=== PATIENT | male | born 1950 | race Caucasian/White ===

== ENCOUNTER 2020-10-26 10:08 | Outpatient (REF) | payer MEDICARE, SELFPAY ==
--- NOTE | ~2020-10-26 | CT_ITS ---
EXAMINATION: CT CHEST WITHOUT CONTRAST CLINICAL INFORMATION: Interstitial lung disease. COMPARISON: None TECHNIQUE: Multidetector volumetric CT imaging of the chest was done. Axial MIP volume rendering provided. Sagittal and coronal reformatted images were obtained. This CT examination was performed using dose optimization techniques as appropriate, variously including the following: *Automated exposure control *Adjustment of mA and/or kV according to patient size (this includes techniques or standardized protocols for targeted exams where dose is matched to indication/reason for exam; i.e. extremities or head) *Use of iterative reconstruction technique DLP: 270 mGy-cm FINDINGS: REFRIGERATION INSULATOR: Well-inflated lungs. LUNGS: There is diffuse centrilobular emphysema with diffuse subpleural reticular interstitial thickening and honeycombing in both upper lobes, lower lobes especially dependent segments. No pulmonary nodule, mass or consolidation seen. MEDIASTINUM: The thyroid lobes are symmetrical and normal. The central trachea and the bronchi are widely patent. Heart size is normal with coronary artery calcifications. No pericardial effusion seen. The aorta is normal caliber. There are reactive pretracheal and para-aortic abnormal lymph nodes. The para-aortic lymph node measures 1.5 x 1.0 cm on axial image 20/7, the pretracheal lymph node measures 1.4 x 1.0 cm. No pericardial effusion seen. PLEURA: There is no pleural effusion. No pleural mass or thickening. AXILLA: No abnormal lymph nodes seen in the axilla. The chest wall appears unremarkable. UPPER ABDOMEN: The liver is diffusely attenuated without enlargement or focal lesion. No intrahepatic ductal dilatation seen. There is a solitary small gallstone in a contracted gallbladder. Visualized pancreas, adrenal glands and spleen appear unremarkable. There is diffuse colonic diverticulosis in the visualized transverse colon. OSSEOUS STRUCTURES: Moderate ventral spondylosis throughout dorsal spine. No lytic or sclerotic process seen. CT/CT chest wo con IMPRESSION: Diffuse centrilobular emphysema with reticular interstitial thickening and honeycombing suggestive of chronic interstitial lung fibrosis involving both upper lobes and lower lobes. No definite pulmonary nodule or consolidation seen. There are reactive abnormal mediastinal lymph nodes. Diffuse hepatic steatosis without focal lesion. Solitary radiopaque gallstone in a contracted gallbladder.
== END 2020-10-26 10:09 | disposition home or self-care (01) ==
LOC: HO.CT 10:08
PROVIDERS: PCP Physician Assistant Medical; Visit Provider Internal Medicine Pulmonary Disease
DX: J84.9 Interstitial pulmonary disease, unspecified (principal)
CPT/HCPCS: 71250

== ENCOUNTER 2020-11-03 09:19 | Outpatient (REF) | payer MEDICARE, SELFPAY ==
--- NOTE | 2020-11-03 | PFT_ITS ---
INDICATION: Interstitial lung disease. SPIROMETRY: FEV1 to FVC of 83% with an FEV1 of 2.88 L, which is 96% predicted and FVC of 3.47 L which is 84% predicted. No significant response to bronchodilators noted. Maximum voluntary ventilation 95% predicted. LUNG VOLUMES: Total lung capacity 66% of predicted with an expiratory reserve volume of 80% predicted. DIFFUSION CAPACITY: DLCO 46% predicted. Flow volume loop: There appears to be some plateauing of the inspiratory flows, which could represent a dynamic extrathoracic airway obstruction. COMPARISON: None. INTERPRETATION: No obstructive ventilatory defect. No significant response to bronchodilators noted and normal maximum voluntary ventilation. The patient does have a mild restrictive ventilatory defect, which is consistent with a history of interstitial lung disease. In addition to that, there is a [id number] diffusion impairment secondary to the parenchymal lung disease. The patient also has some plateauing of the flows during the inspiratory component of the flow volume loop, which brings up the possibility of extrathoracic dynamic obstruction. Clinical correlation warranted. MD COLBY Pete/RAJNI / [id number]
== END 2020-11-03 09:20 | disposition home or self-care (01) ==
LOC: HO.RESP 09:19
PROVIDERS: Visit Provider Internal Medicine Pulmonary Disease
DX: J84.9 Interstitial pulmonary disease, unspecified (principal)
CPT/HCPCS: 94060; 94727; 94729

== ENCOUNTER → 2020-11-18 09:45 | Outpatient (BNVA) | payer MEDICARE, SELFPAY | PROVIDERS: Visit Provider Internal Medicine Pulmonary Disease | DX: M05.10 Rheumatoid lung disease with rheumatoid arthritis of unspecified site (principal); J84.10 Pulmonary fibrosis, unspecified | CPT/HCPCS: 99212 ==

== ENCOUNTER → 2021-11-14 08:47 | Outpatient (BNVA) | payer MEDICARE, SELFPAY | PROVIDERS: PCP Physician Assistant Medical; Visit Provider Internal Medicine Pulmonary Disease | DX: M05.10 Rheumatoid lung disease with rheumatoid arthritis of unspecified site (principal); J84.10 Pulmonary fibrosis, unspecified | CPT/HCPCS: 99212 ==

== ENCOUNTER 2021-12-15 15:39 | Outpatient (REF) | payer MEDICARE, SELFPAY ==
--- NOTE | 2021-12-15 17:03 | PFT_ITS ---
FLOWS: FEV1 93% of predicted at 2.76 L. FVC 82% of predicted at 3.32 L. FEV1 to FVC ratio of 0.83. No bronchodilator response. LUNG VOLUMES: Total lung capacity 66% of predicted at 4.41 L. Residual volume 49% of predicted at 1.18 L. Slow vital capacity 75% of predicted at 3.23 L. Expiratory reserve volume 66% of predicted at 0.76 L. Diffusion capacity is moderately decreased, diffusion capacity adjust to being mildly decreased after correction for alveolar ventilation. In comparison to pulmonary function test performed November 03, 2020, there have been no significant changes in patient's pulmonary function. IMPRESSION: Mild restrictive ventilatory defect with no bronchodilator response. Decreased diffusion capacity suggests emphysema. MD ARMANDO Maya/MODL / [id number]
== END 2021-12-15 15:40 | disposition home or self-care (01) ==
LOC: HO.RESP 15:39
PROVIDERS: Visit Provider Internal Medicine Pulmonary Disease
DX: J84.10 Pulmonary fibrosis, unspecified (principal)
CPT/HCPCS: 94060; 94727; 94729

== ENCOUNTER 2022-10-17 07:59 | Outpatient (REF) | payer MEDICARE, SELFPAY ==
--- NOTE | 2022-10-17 08:55 | PFT_ITS ---
INDICATION: Pulmonary fibrosis. SPIROMETRY: The FEV1 to FVC of 84% with an FEV1 of 2.42 L, which is 82% predicted and an FVC of 2.87 L, which is 71% predicted. No significant response to bronchodilators noted. Maximum voluntary ventilation 92% predicted. LUNG VOLUMES: Total lung capacity 52% predicted with an expiratory reserve volume of 39% predicted. COMPARISONS: PFTs from November 2021. INTERPRETATION: No obstructive ventilatory defects, no significant response to bronchodilators noted, and normal maximum voluntary ventilation. The patient does have a restrictive ventilatory defect consistent with moderate restrictive lung disease secondary to his underlying pulmonary fibrosis. The patient also has a moderate to severe diffusion impairment secondary to the above. When compared to 2021, there is a significant decrease in the FVC from decrease in the FEV1 and significant decrease in the total lung capacity and a trend decrease in the diffusion capacity. Clinical correlation warranted. MD COLBY Pete/MODL / [id number]
== END 2022-10-17 08:00 | disposition home or self-care (01) ==
LOC: HO.RESP 07:59
PROVIDERS: Visit Provider Internal Medicine Pulmonary Disease
DX: J84.10 Pulmonary fibrosis, unspecified (principal)
CPT/HCPCS: 94010; 94727; 94729

== ENCOUNTER → 2022-11-08 08:56 | Outpatient (BNVA) | payer MEDICARE, SELFPAY | PROVIDERS: Visit Provider Internal Medicine Pulmonary Disease | DX: J84.10 Pulmonary fibrosis, unspecified (principal); R06.09 Other forms of dyspnea; Z87.891 Personal history of nicotine dependence | CPT/HCPCS: 99212 ==

== ENCOUNTER 2023-01-22 09:57 | Outpatient (AMB) | payer MEDICARE, SELFPAY ==
--- NOTE | 2023-01-22 09:59 | A.OFFVIS_ITS ---
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 ? Patient continues to use albuterol MDI as needed, usually not more once every few days.? He complains of mild dyspnea on exertion. Patient continues to undergo cardiac workup. His PFT shows decreasing FVC. He denies recent acute exacerbations. [facility] Social History (Reviewed 01/22/23 @ 10:02 by Leatha Marin [facility]) Patient Tobacco Use Status: Never used Tobacco Review of Systems Const Denies daytime sleepiness, Denies excessive sweating, Denies fatigue, Denies fever(s), Denies lethargy, Denies malaise, Denies night sweats, Denies snoring and Denies weight loss Eyes Denies blurry vision and Denies itchy eyes ENT Denies nasal congestion, Denies post nasal drip, Denies sinus pain, Denies sinus pressure and Denies other ( Thrush) Card Denies chest pain, Denies pedal edema, Denies dyspnea, Reports dyspnea on exertion, Denies orthopnea and Denies paroxysmal nocturnal dyspnea Resp Denies cough, Denies hemoptysis, Denies excessive phlegm production, Denies dyspnea, Reports dyspnea on exertion, Denies snoring and Denies wheezing GI Denies abdominal pain and Denies heartburn Musc Denies myalgias, Denies arthralgias and Denies joint swelling Skin/Breast Denies rash Neuro Denies memory loss and Denies seizure-like activity Psych Denies abnormal sleep pattern, Denies anxiety and Denies memory loss Endo Denies excessive sweating, Denies fatigue and Denies heat intolerance Alfredo/Lymph Denies easy bruising Aller/Immun Denies itchy eyes, Denies seasonal rhinorrhea and Denies wheezing Physical Exam Vital Signs: Last Vital Signs Pulse 100 01/22/23 10:00 BP 118/62 01/22/23 10:00 Pulse Ox 94 01/22/23 10:00 Oxygen Delivery Method Room Air 01/22/23 10:00 BMI result Body Mass Index 29.3 Const General: no acute distress and alert Nutritional Appearance: not obese Orientation/consciousness: Other orientation findings ( oriented) HEENT Head: Yes atraumatic Eyes General: appearance normal, both eyes and all related structures Sclerae: sclerae normal EOM: EOMs intact bilaterally Neck Neck: Yes supple Lymphatic: no lymphadenopathy noted Resp Effort & Inspection: normal respiratory effort and no use of accessory muscles Auscultation: clear to auscultation bilaterally Cardio Rate: regular rate Rhythm: regular rhythm Heart sounds: no gallops, no murmurs and no rubs Skin General skin exam: other ( warm) Extrem General: No clubbing, No cyanosis and No edema Assessment & Plan Assessment & Plan (1) Dyspnea on exertion: Code(s): R06.09 - Other forms of dyspnea (2) Interstitial pulmonary fibrosis: Code(s): J84.10 - Pulmonary fibrosis, unspecified (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 Will request off approval. Continue albuterol MDI as needed. Coding Level of Care Code Est Pt Level 4 (88589) Diagnoses Dyspnea on exertion R06.09 Interstitial pulmonary fibrosis J84.10 Rheumatoid lung disease with rheumatoid arthritis M05.10
[2023-01-22 10:00] VITALS: BP 118/62; PULSE 100; O2SAT 94; BMI 29.3
== END 2023-01-22 10:15 | disposition home or self-care (01) ==
PROVIDERS: PCP Physician Assistant Medical; Visit Provider Internal Medicine Pulmonary Disease
DX: R06.09 Other forms of dyspnea (principal); J84.10 Pulmonary fibrosis, unspecified; M05.10 Rheumatoid lung disease with rheumatoid arthritis of unspecified site
CPT/HCPCS: 99214

== ENCOUNTER → 2023-01-22 09:57 | Outpatient (BNVA) | payer MEDICARE, SELFPAY | PROVIDERS: PCP Physician Assistant Medical; Visit Provider Internal Medicine Pulmonary Disease | DX: J84.10 Pulmonary fibrosis, unspecified (principal); R06.09 Other forms of dyspnea; M05.10 Rheumatoid lung disease with rheumatoid arthritis of unspecified site | CPT/HCPCS: 99212 ==

== ENCOUNTER 2023-08-27 08:46 | Outpatient (AMB) | payer MEDICARE, SELFPAY ==
[2023-08-27 08:51] VITALS: BP 117/62; PULSE 94; O2SAT 95; BMI 27.7
--- NOTE | 2023-08-27 08:51 | MHC.OFFVIS ---
Intake Vital Signs 08/27/23 08:51 Height 5 ft 8 in Weight 181 lb 14.102 oz BMI 27.7 BP 117/62 Blood Pressure Location Rt brachial Position Sitting Pulse 94 Pulse Source Doppler Pulse Oximetry (%) 95 Oxygen Delivery Method Room Air Intake Visit Reasons: pulmonary fibrosis Allergies No Known Allergies Allergy (Verified 08/27/23 08:57) HPI pulmonary fibrosis HPI Details 72-year-old gentleman, former 25 pack year smoker, quit 1999 followed for ILD/likely RA related IPF. ?He has been started on Ofev after the last office visit, however did have difficulty tolerating it secondary to diarrhea and abdominal pain requiring decrease in the dose. Today patient is complaining of worsening dyspnea on exertion. He is currently under no rheumatology care on any anti RA medications. [facility] Social History Patient Tobacco Use Status: Never used Tobacco Review of Systems Const Denies daytime sleepiness, Denies excessive sweating, Denies fatigue, Denies fever(s), Denies lethargy, Denies malaise, Denies night sweats, Denies snoring and Denies weight loss Eyes Denies blurry vision and Denies itchy eyes ENT Denies nasal congestion, Denies post nasal drip, Denies sinus pain, Denies sinus pressure and Denies other ( Thrush) Card Denies chest pain, Denies pedal edema, Denies dyspnea, Reports dyspnea on exertion, Denies orthopnea and Denies paroxysmal nocturnal dyspnea Resp Denies cough, Denies hemoptysis, Denies excessive phlegm production, Denies dyspnea, Reports dyspnea on exertion, Denies snoring and Denies wheezing GI Denies abdominal pain and Denies heartburn Musc Denies myalgias, Denies arthralgias and Denies joint swelling Skin/Breast Denies rash Neuro Denies memory loss and Denies seizure-like activity Psych Denies abnormal sleep pattern, Denies anxiety and Denies memory loss Endo Denies excessive sweating, Denies fatigue and Denies heat intolerance Alfredo/Lymph Denies easy bruising Aller/Immun Denies itchy eyes, Denies seasonal rhinorrhea and Denies wheezing Physical Exam Vital Signs: Last Vital Signs Pulse 94 08/27/23 08:51 BP 117/62 08/27/23 08:51 Pulse Ox 95 08/27/23 08:51 Oxygen Delivery Method Room Air 04/09/24 08:51 BMI result Body Mass Index 27.7 Const General: no acute distress and alert Nutritional Appearance: not obese Orientation/consciousness: Other orientation findings ( oriented) HEENT Head: Yes atraumatic Eyes General: appearance normal, both eyes and all related structures Sclerae: sclerae normal EOM: EOMs intact bilaterally Neck Neck: Yes supple Lymphatic: no lymphadenopathy noted Resp Effort & Inspection: normal respiratory effort and no use of accessory muscles Auscultation: clear to auscultation bilaterally Cardio Rate: regular rate Rhythm: regular rhythm Heart sounds: no gallops, no murmurs and no rubs Skin General skin exam: other ( warm) Extrem General: No clubbing, No cyanosis and No edema Assessment & Plan Assessment & Plan (1) Rheumatoid lung disease with rheumatoid arthritis: Code(s): M05.10 - Rheumatoid lung disease with rheumatoid arthritis of unspecified site Plan: Patient states that he has an evaluation with [facility] building construction superintendent pending. Patient has been offered rheumatology evaluation at [facility]. (2) Interstitial pulmonary fibrosis: Code(s): J84.10 - Pulmonary fibrosis, unspecified Plan: Underlying worsening pulmonary fibrosis. Continue Ofev. (3) Supplemental oxygen dependent: Code(s): Z99.81 - Dependence on supplemental oxygen Plan: 6 minute walk test/supplemental oxygen evaluation performed. Patient requires supplemental oxygen at 3 L continuous flow to maintain normal oximetry with exertion. Order placed with [employer]. Coding Level of Care Code Est Pt Level 4 (34490) Diagnoses Rheumatoid lung disease with rheumatoid arthritis M05.10 Interstitial pulmonary fibrosis J84.10 Supplemental oxygen dependent Z99.81
[2023-08-27 10:20] VITALS: PULSE 100; O2SAT 94
== END 2023-08-27 09:23 | disposition home or self-care (01) ==
PROVIDERS: PCP Physician Assistant Medical; Visit Provider Internal Medicine Pulmonary Disease
DX: M05.10 Rheumatoid lung disease with rheumatoid arthritis of unspecified site (principal); J84.10 Pulmonary fibrosis, unspecified; Z99.81 Dependence on supplemental oxygen
CPT/HCPCS: 94618; 99214

== ENCOUNTER → 2023-08-27 08:46 | Outpatient (BNVA) | payer MEDICARE, SELFPAY | PROVIDERS: PCP Physician Assistant Medical; Visit Provider Internal Medicine Pulmonary Disease | DX: M05.10 Rheumatoid lung disease with rheumatoid arthritis of unspecified site (principal); J84.10 Pulmonary fibrosis, unspecified; Z99.81 Dependence on supplemental oxygen | CPT/HCPCS: 94618; 99212 ==

== ENCOUNTER 2023-09-26 09:58 | Outpatient (AMB) | payer MEDICARE, SELFPAY ==
[2023-09-26 10:06] VITALS: BP 124/66; PULSE 69; O2SAT 94; BMI 28.0
--- NOTE | 2023-09-26 10:06 | MHC.OFFVIS ---
Vital Signs 09/26/23 10:06 Height 5 ft 8 in Weight 184 lb BMI 28.0 BP 124/66 Blood Pressure Location Rt brachial Position Sitting Pulse 69 Pulse Source Doppler Pulse Oximetry (%) 94 Oxygen Delivery Method Room Air Intake Visit Reasons: Pulmonary Fibrosis Allergies No Known Allergies Allergy (Verified 08/27/23 08:57) HPI HPI Pulmonary Fibrosis: Details: 73-year-old gentleman, former 25 pack year smoker, quit 1999 followed for ILD/likely RA related IPF, supplement oxygen dependent 3 L with exertion. ?He has been started on Ofev, however did have difficulty tolerating it secondary to diarrhea and abdominal pain requiring decrease in the dose. Patient started seen client service manager again and there is a question whether he actually does have underlying RA or not. [facility] Social History (Updated 09/26/23 @ 10:12 by Leatha Marin [facility]) Patient Tobacco Use Status: Former Tobacco user Years Smoked: quit 30+ years ago Review of Systems Const Denies daytime sleepiness, Denies excessive sweating, Denies fatigue, Denies fever(s), Denies lethargy, Denies malaise, Denies night sweats, Denies snoring and Denies weight loss Eyes Denies blurry vision and Denies itchy eyes ENT Denies nasal congestion, Denies post nasal drip, Denies sinus pain, Denies sinus pressure and Denies other ( Thrush) Card Denies chest pain, Denies pedal edema, Denies dyspnea, Denies orthopnea and Denies paroxysmal nocturnal dyspnea Resp Denies cough, Denies hemoptysis, Denies excessive phlegm production, Denies dyspnea, Denies snoring and Denies wheezing GI Denies abdominal pain and Denies heartburn Musc Denies myalgias, Denies arthralgias and Denies joint swelling Skin/Breast Denies rash Neuro Denies memory loss and Denies seizure-like activity Psych Denies abnormal sleep pattern, Denies anxiety and Denies memory loss Endo Denies excessive sweating, Denies fatigue and Denies heat intolerance Alfredo/Lymph Denies easy bruising Aller/Immun Denies itchy eyes, Denies seasonal rhinorrhea and Denies wheezing Physical Exam Vital Signs: Last Vital Signs Pulse 69 09/26/23 10:06 BP 124/66 09/26/23 10:06 Pulse Ox 94 09/26/23 10:06 Oxygen Delivery Method Room Air 09/26/23 10:06 BMI result Body Mass Index 28.0 Const General: no acute distress and alert Nutritional Appearance: not obese Orientation/consciousness: Other orientation findings ( oriented) HEENT Head: Yes atraumatic Eyes General: appearance normal, both eyes and all related structures Sclerae: sclerae normal EOM: EOMs intact bilaterally Neck Neck: Yes supple Lymphatic: no lymphadenopathy noted Resp Effort & Inspection: normal respiratory effort and no use of accessory muscles Auscultation: clear to auscultation bilaterally Cardio Rate: regular rate Rhythm: regular rhythm Heart sounds: no gallops, no murmurs and no rubs Skin General skin exam: other ( warm) Extrem General: No clubbing, No cyanosis and No edema Assessment & Plan Assessment & Plan (1) Interstitial pulmonary fibrosis: Code(s): J84.10 - Pulmonary fibrosis, unspecified Category: Medical Plan: If patient does have underlying RA, then RA related, otherwise IPF/UIP. Continue Ofev. (2) Supplemental oxygen dependent: Code(s): Z99.81 - Dependence on supplemental oxygen Category: Medical Plan: Continue supplemental oxygen to maintain O2 saturation above 90%. Coding Level of Care Code Est Pt Level 4 (23329) Diagnoses Interstitial pulmonary fibrosis J84.10 Supplemental oxygen dependent Z99.81
== END 2023-09-26 10:29 | disposition home or self-care (01) ==
PROVIDERS: PCP Physician Assistant Medical; Visit Provider Internal Medicine Pulmonary Disease
DX: J84.10 Pulmonary fibrosis, unspecified (principal); Z99.81 Dependence on supplemental oxygen
CPT/HCPCS: 99214

== ENCOUNTER → 2023-09-26 09:58 | Outpatient (BNVA) | payer MEDICARE, SELFPAY | PROVIDERS: PCP Physician Assistant Medical; Visit Provider Internal Medicine Pulmonary Disease | DX: J84.10 Pulmonary fibrosis, unspecified (principal); Z99.81 Dependence on supplemental oxygen | CPT/HCPCS: 99212 ==

== ENCOUNTER 2023-11-13 11:17 | Outpatient (AMB) | payer MEDICARE, SELFPAY ==
[2023-11-13 11:18] VITALS: BP 100/68; PULSE 100; O2SAT 95; BMI 26.0
--- NOTE | 2023-11-13 11:18 | MHC.OFFVIS ---
Vital Signs 11/13/23 11:18 Height 5 ft 8 in Weight 170 lb 13.732 oz BMI 26.0 BP 100/68 Blood Pressure Location Lt brachial Position Sitting Pulse 100 Pulse Source Doppler Pulse Oximetry (%) 95 Oxygen Delivery Method Nasal Cannula Oxygen Flow Rate 2 Intake Visit Reasons: pulmonary fibrosis Allergies No Known Allergies Allergy (Verified 08/27/23 08:57) HPI HPI pulmonary fibrosis: Details: 73-year-old gentleman, former 25 pack year smoker, quit 1999 followed for ILD UIP/IPF, supplement oxygen dependent 3 L with exertion. ?He has been started on Ofev, however did have difficulty tolerating it secondary to diarrhea and abdominal pain requiring decrease in the dose, however he has not received decreased dose. Patient seen sausage meat trimmer and RA has been ruled out. He does complain of significant symptomatic decline in his dyspnea over the last 6 months. Patient had recent CT chest at [facility] with report stating progression in ILD from prior CT scan in 2019. [facility] Social History (Updated 09/26/23 @ 10:12 by Leatha Marin [facility]) Patient Tobacco Use Status: Former Tobacco user Years Smoked: quit 30+ years ago Review of Systems Const Reports lethargy, Reports malaise and Reports weight loss Card Denies chest pain, Reports pedal edema, Denies dyspnea, Reports dyspnea on exertion, Denies orthopnea and Denies paroxysmal nocturnal dyspnea Resp Denies cough, Denies hemoptysis, Denies excessive phlegm production, Denies dyspnea, Reports dyspnea on exertion and Denies wheezing Alfredo/Lymph Denies easy bruising Aller/Immun Denies seasonal rhinorrhea and Denies wheezing Physical Exam Vital Signs: Last Vital Signs Pulse 100 11/13/23 11:18 BP 100/68 11/13/23 11:18 Pulse Ox 95 11/13/23 11:18 Oxygen Delivery Method Nasal Cannula 11/13/23 11:18 Oxygen Flow Rate 2 11/13/23 11:18 BMI result Body Mass Index 26.0 Const General: no acute distress and alert Nutritional Appearance: not obese Orientation/consciousness: Other orientation findings ( oriented) HEENT Head: Yes atraumatic Eyes General: appearance normal, both eyes and all related structures Sclerae: sclerae normal EOM: EOMs intact bilaterally Neck Neck: Yes supple Lymphatic: no lymphadenopathy noted Resp Effort & Inspection: normal respiratory effort and no use of accessory muscles Auscultation: crackles (Bilateral inspiratory) Cardio Rate: regular rate Rhythm: regular rhythm Heart sounds: no gallops, no murmurs and no rubs Skin General skin exam: other ( warm) Extrem General: No clubbing, No cyanosis and No edema Assessment & Plan Assessment & Plan (1) Supplemental oxygen dependent: Code(s): Z99.81 - Dependence on supplemental oxygen Category: Medical Plan: Continue supplemental oxygen to maintain O2 saturation above 88%. (2) Interstitial pulmonary fibrosis: Code(s): J84.10 - Pulmonary fibrosis, unspecified Category: Medical Plan: Underlying UIP/IPF, progressive over the last 6 months symptomatically. Patient has not started reduced dose Ofev, request for medication recent. Will start on prednisone 50 mg daily all the next months and assess symptoms in 1 months[address] Will obtain recent CT chest imaging from [facility]. Medications: New prednisone 50 mg PO DAILY 30 tabs 3RF Coding Level of Care Code Est Pt Level 4 (74917) Diagnoses Supplemental oxygen dependent Z99.81 Interstitial pulmonary fibrosis J84.10
== END 2023-11-13 11:52 | disposition home or self-care (01) ==
PROVIDERS: PCP Physician Assistant Medical; Visit Provider Internal Medicine Pulmonary Disease
DX: Z99.81 Dependence on supplemental oxygen (principal); J84.10 Pulmonary fibrosis, unspecified
CPT/HCPCS: 99214

== ENCOUNTER → 2023-11-13 11:17 | Outpatient (BNVA) | payer MEDICARE, SELFPAY | PROVIDERS: PCP Physician Assistant Medical; Visit Provider Internal Medicine Pulmonary Disease | DX: J84.10 Pulmonary fibrosis, unspecified (principal); Z99.81 Dependence on supplemental oxygen; Z87.891 Personal history of nicotine dependence | CPT/HCPCS: 99212 ==

== ENCOUNTER 2023-12-13 09:03 | Outpatient (AMB) | payer MEDICARE, SELFPAY ==
[2023-12-13 09:07] VITALS: BP 124/62; PULSE 71; O2SAT 95; BMI 27.3
--- NOTE | 2023-12-13 09:07 | MHC.OFFVIS ---
Vital Signs 12/13/23 09:07 Height 5 ft 8 in Weight 179 lb 10.828 oz BMI 27.3 BP 124/62 Blood Pressure Location Rt brachial Position Sitting Pulse 71 Pulse Source Doppler Pulse Oximetry (%) 95 Oxygen Delivery Method Nasal Cannula Oxygen Flow Rate 2 Intake Visit Reasons: Pulmonary Fibrosis Allergies No Known Allergies Allergy (Verified 12/13/23 09:13) HPI HPI Pulmonary Fibrosis: Details: 73-year-old gentleman, former 25 pack year smoker, quit 1999 followed for ILD UIP/IPF, supplement oxygen dependent 3 L with exertion. ?He has been started on Ofev, however did have difficulty tolerating it secondary to diarrhea and abdominal pain requiring decrease in the dose, however he is able to tolerate better with the decreased dose. RA has been ruled out as a cause for his underlying ILD by his equipment driver. He has been on prednisone 50 mg daily of the last months with improved symptom tolerance. [facility] Social History (Updated 09/26/23 @ 10:12 by Leatha Marin Coco) Patient Tobacco Use Status: Former Tobacco user Years Smoked: quit 30+ years ago Review of Systems Const Denies daytime sleepiness, Denies excessive sweating, Denies fatigue, Denies fever(s), Denies lethargy, Denies malaise, Denies night sweats, Denies snoring and Denies weight loss Eyes Denies blurry vision and Denies itchy eyes ENT Denies nasal congestion, Denies post nasal drip, Denies sinus pain, Denies sinus pressure and Denies other ( Thrush) Card Denies chest pain, Denies pedal edema, Denies dyspnea, Reports dyspnea on exertion, Denies orthopnea and Denies paroxysmal nocturnal dyspnea Resp Denies cough, Denies hemoptysis, Denies excessive phlegm production, Denies dyspnea, Reports dyspnea on exertion, Denies snoring and Denies wheezing GI Denies abdominal pain and Denies heartburn Musc Denies myalgias, Denies arthralgias and Denies joint swelling Skin/Breast Denies rash Neuro Denies memory loss and Denies seizure-like activity Psych Denies abnormal sleep pattern, Denies anxiety and Denies memory loss Endo Denies excessive sweating, Denies fatigue and Denies heat intolerance Alfredo/Lymph Denies easy bruising Aller/Immun Denies itchy eyes, Denies seasonal rhinorrhea and Denies wheezing Physical Exam Vital Signs: Last Vital Signs Pulse 71 12/13/23 09:07 BP 124/62 12/13/23 09:07 Pulse Ox 95 12/13/23 09:07 Oxygen Delivery Method Nasal Cannula 12/13/23 09:07 Oxygen Flow Rate 2 12/13/23 09:07 BMI result Body Mass Index 27.3 Const General: no acute distress and alert Nutritional Appearance: not obese Orientation/consciousness: Other orientation findings ( oriented) HEENT Head: Yes atraumatic Eyes General: appearance normal, both eyes and all related structures Sclerae: sclerae normal EOM: EOMs intact bilaterally Neck Neck: Yes supple Lymphatic: no lymphadenopathy noted Resp Effort & Inspection: normal respiratory effort and no use of accessory muscles Auscultation: clear to auscultation bilaterally Cardio Rate: regular rate Rhythm: regular rhythm Heart sounds: no gallops, no murmurs and no rubs Skin General skin exam: other ( warm) Extrem General: No clubbing, No cyanosis and No edema Assessment & Plan Assessment & Plan (1) Interstitial pulmonary fibrosis: Code(s): J84.10 - Pulmonary fibrosis, unspecified Category: Medical Plan: IPF UIP, some symptomatic improvement on prednisone [address] chest prior to prednisone therapy from 09/2023 from [place] reviewed. Will repeat CT chest to assess changes with prednisone therapy. Will continue prednisone for to movements. Will refer to Pulmonary Rehab. (2) Supplemental oxygen dependent: Code(s): Z99.81 - Dependence on supplemental oxygen Category: Medical Plan: Continue supplemental O2 to maintain O2 sat >88%. Orders: Orders Pulmonary Rehab Today J84.10 - Pulmonary fibrosis, unspecified CT chest wo IV con Today J84.10 - Pulmonary fibrosis, unspecified Coding Level of Care Code Est Pt Level 4 (75723) Diagnoses Interstitial pulmonary fibrosis J84.10 Supplemental oxygen dependent Z99.81
== END 2023-12-13 09:26 | disposition home or self-care (01) ==
PROVIDERS: PCP Physician Assistant Medical; Visit Provider Internal Medicine Pulmonary Disease
DX: J84.10 Pulmonary fibrosis, unspecified (principal); Z99.81 Dependence on supplemental oxygen
CPT/HCPCS: 99214

== ENCOUNTER → 2023-12-13 09:03 | Outpatient (BNVA) | payer MEDICARE, SELFPAY | PROVIDERS: PCP Physician Assistant Medical; Visit Provider Internal Medicine Pulmonary Disease | DX: J84.10 Pulmonary fibrosis, unspecified (principal); Z99.81 Dependence on supplemental oxygen; Z87.891 Personal history of nicotine dependence | CPT/HCPCS: 99212 ==

== ENCOUNTER 2024-01-06 07:15 | Outpatient (REF) | payer MEDICARE, SELFPAY ==
--- NOTE | ~2024-01-06 | CT_ITS ---
EXAMINATION: CT CHEST WITHOUT CONTRAST CLINICAL INFORMATION: Pulmonary fibrosis, unspecified. COMPARISON: 10/26/2020. TECHNIQUE: Multidetector volumetric CT imaging of the chest was done. Axial MIP volume rendering provided. Sagittal and coronal reformatted images were obtained. This CT examination was performed using dose optimization techniques as appropriate, variously including the following: *Automated exposure control *Adjustment of mA and/or kV according to patient size (this includes techniques or standardized protocols for targeted exams where dose is matched to indication/reason for exam; i.e. extremities or head) *Use of iterative reconstruction technique DLP: 199 mGy-cm Please note, due to [facility] contractual, systems, and staffing issues, an [facility] radiologist was not available for review and dictation of this case until 02/04/2024. FINDINGS: LUNGS: -Once again, there are findings of diffuse pulmonary fibrosis with subpleural honeycombing throughout both lungs, without notable gradient to the upper or lower lung zones. Compared with the prior CT, there has been progression of fibrosis to a moderate degree throughout both lungs. There is superimposed paraseptal emphysema. -Lung volumes are low, consistent with restrictive lung disease. There are apical subpleural blebs, right greater than left. -The degree of underlying lung disease limits sensitivity for detection of small nodules. Grossly there is no suspicious pulmonary nodule identified. -There is diffuse cylindrical and traction bronchiectasis. There is no bronchial wall thickening noted. There is mild peribronchovascular interstitial thickening in the perihilar regions, consistent with pulmonary fibrosis. -No endobronchial filling defects. Central airways are patent. -No consolidations identified. -Mild superimposed groundglass attenuation in the right middle lobe, and subpleural regions of both lungs associated with honeycombing suggests potential ongoing lung injury. -There is no pleural mass or pleural effusion. -Mild elevation of the right hemidiaphragm is present. MEDIASTINUM: -Thyroid is small but normal. -Aorta is normal in caliber and course with moderate atheromatous calcification. 2 vessel branching pattern. -Main pulmonary artery is prominent, suggesting some degree of pulmonary hypertension. It measures 4.2 cm in diameter, enlarged. -There are small subcentimeter mediastinal lymph nodes, consistent with reactive etiology. -Heart size is normal. No pericardial effusion. -Esophagus is grossly normal on this noncontrast exam. CORONARY ARTERY CALCIFICATION: Moderate to extensive 4 vessel coronary calcification. AXILLA/CHEST WALL: There is mild bilateral male gynecomastia. No masses or abnormal lymph nodes. UPPER ABDOMEN: -There are calcified gallstone within the proximal gallbladder. No evidence of gallbladder inflammation. -There is mild pancreatic atrophy. -No suspicious liver abnormality on this noncontrast exam. -There are scattered diverticuli in the imaged colon. -Normal adrenal glands. OSSEOUS STRUCTURES: -No suspicious lytic or blastic bone lesion. -There is moderate degenerative spondylosis throughout the spine with ventral somewhat bulky flowing disc osteophytes which are fused, highly suggestive of DISH. -There is significant arthritis in the first rib costomanubrial joint, as well as the sternoclavicular joints. CT/CT chest wo IV con IMPRESSION: 1. Significant progression of diffuse subpleural pulmonary fibrosis with honeycombing superimposed upon paraseptal emphysema when compared with the prior exam of 10/26/2020. Findings suggestive of UIP or pulmonary fibrosis based upon underlying collagen vascular disease. Areas of superimposed subpleural groundglass attenuation adjacent and overlying the honeycombing in the both lungs suggests ongoing lung injury. 2. There is diffuse mild cylindrical and traction bronchiectasis. No bronchial wall thickening or filling defect. 3. No suspicious nodules although degree of underlying lung disease could obscure subtle nodules. 4. No consolidations or pleural effusions. 5. Enlarged main pulmonary artery suggestive of pulmonary hypertension. 6. No pathologic lymphadenopathy. 7. Skeletal findings compatible with DISH. 8. Additional ancillary findings as discussed. Electronically signed by: jP Schofield MD 02/04/2024 10:07 AM EDT
== END 2024-01-06 07:16 | disposition home or self-care (01) ==
LOC: HO.CT 07:15
PROVIDERS: PCP Physician Assistant Medical; Visit Provider Internal Medicine Pulmonary Disease
DX: J84.10 Pulmonary fibrosis, unspecified (principal)
CPT/HCPCS: 71250

== ENCOUNTER → 2024-01-06 07:16 | Outpatient (BNV) | payer MEDICARE, SELFPAY | PROVIDERS: PCP Physician Assistant Medical; Visit Provider Radiology Diagnostic Radiology | DX: J84.10 Pulmonary fibrosis, unspecified (principal) | CPT/HCPCS: 71250 ==

== ENCOUNTER 2024-01-30 10:48 | Outpatient (AMB) | payer MEDICARE, SELFPAY ==
[2024-01-30 10:51] VITALS: BP 96/62; PULSE 122; O2SAT 91
--- NOTE | 2024-01-30 10:51 | A.OFFVIS_ITS ---
Vital Signs 01/30/24 10:51 Height 5 ft 8 in BP 96/62 Blood Pressure Location Rt brachial Position Sitting Pulse 122 H Pulse Source Doppler Pulse Oximetry (%) 91 L Oxygen Delivery Method Nasal Cannula Oxygen Flow Rate 4 Intake Visit Reasons: shortness of breath with exertion Allergies No Known Allergies Allergy (Verified 12/13/23 09:13) HPI HPI shortness of breath with exertion: Details: 73-year-old gentleman, former 25 pack year smoker, quit 1999 followed for ILD UIP/IPF, supplement oxygen dependent 3 L with exertion. After the last office visit patient continues on prednisone 50 mg daily with significant symptomatic improvement and was able to participate with pulmonary rehab with further improvement in his exercise tolerance. However approximately 2-3 weeks prior patient has developed COVID-19 infection with significant worsening of his underlying pulmonary symptoms. He has tested negative within last week and today he states that his dyspnea has not significantly improved since developing COVID-19. He also had to stop his Ofev over the last few weeks secondary to significant diarrhea. [facility] Social History (Updated 09/26/23 @ 10:12 by Leatha Marin Coco) Patient Tobacco Use Status: Former Tobacco user Years Smoked: quit 30+ years ago Review of Systems Const Reports fatigue and Reports malaise Card Reports dyspnea and Reports dyspnea on exertion Resp Reports cough, Denies excessive phlegm production, Reports dyspnea, Reports dyspnea on exertion and Denies wheezing Endo Reports fatigue Aller/Immun Denies wheezing Physical Exam Vital Signs: Last Vital Signs Pulse 122 H 01/30/24 10:51 BP 96/62 01/30/24 10:51 Pulse Ox 91 L 01/30/24 10:51 Oxygen Delivery Method Nasal Cannula 01/30/24 10:51 Oxygen Flow Rate 4 01/30/24 10:51 Const General: no acute distress and alert Nutritional Appearance: not obese Orientation/consciousness: Other orientation findings ( oriented) HEENT Head: Yes atraumatic Eyes General: appearance normal, both eyes and all related structures Sclerae: sclerae normal EOM: EOMs intact bilaterally Neck Neck: Yes supple Lymphatic: no lymphadenopathy noted Resp Effort & Inspection: normal respiratory effort and no use of accessory muscles Auscultation: clear to auscultation bilaterally Cardio Rate: regular rate Rhythm: regular rhythm Heart sounds: no gallops, no murmurs and no rubs Skin General skin exam: other ( warm) Rashes: rashes noted (Left díaz) Extrem General: No clubbing, No cyanosis and No edema Assessment & Plan Assessment & Plan (1) Interstitial pulmonary fibrosis: Code(s): J84.10 - Pulmonary fibrosis, unspecified Category: Medical Plan: Had significant symptomatic improvement on prednisone 50 mg daily and with pulmonary rehab, however over the last 2-3 weeks had significant worsening with COVID-19 and remains with significant dyspnea after COVID test told negative. At this time will taper off prednisone and hold off have secondary to significant diarrhea. Will re-evaluate in 4 weeks. (2) Supplemental oxygen dependent: Code(s): Z99.81 - Dependence on supplemental oxygen Category: Medical Plan: Continue supplemental oxygen to maintain O2 saturation above 88%. Patient is interested in possible POC evaluation for flying. Medications: New prednisone Take 4 tabs daily by 5 days, then go down by 1 tab every 5 days 10 mg PO DIRECTED 50 tabs 0RF Discontinued prednisone Discontinued Reason: Doctor's Order 50 mg PO DAILY 30 tabs 3RF Coding Level of Care Code Est Pt Level 4 (40984) Complex EM visit Add On G2211 Diagnoses Interstitial pulmonary fibrosis J84.10 Supplemental oxygen dependent Z99.81
== END 2024-01-30 11:31 | disposition home or self-care (01) ==
PROVIDERS: PCP Physician Assistant Medical; Visit Provider Internal Medicine Pulmonary Disease
DX: J84.10 Pulmonary fibrosis, unspecified (principal); Z99.81 Dependence on supplemental oxygen
CPT/HCPCS: 99214; G2211

== ENCOUNTER → 2024-01-30 10:48 | Outpatient (BNVA) | payer MEDICARE, SELFPAY | PROVIDERS: PCP Physician Assistant Medical; Visit Provider Internal Medicine Pulmonary Disease | DX: J84.10 Pulmonary fibrosis, unspecified (principal); J84.112 Idiopathic pulmonary fibrosis; Z87.891 Personal history of nicotine dependence; Z99.81 Dependence on supplemental oxygen | CPT/HCPCS: 99212 ==

== ENCOUNTER 2024-02-04 09:24 | Inpatient (IN) | payer MEDICARE, SELFPAY ==
[2024-02-04] VITALS (44 sets, daily range): BP systolic 60–142; BP diastolic 30–93; PULSE 52–180; RESP 17–56; TEMP 34–37; O2SAT 81–105; BMI 26.7
--- NOTE | 2024-02-04 | ECG_ITS ---
Test Reason : FALL Blood Pressure : / mmHG Vent. Rate : 153 BPM Atrial Rate : 153 BPM P-R Int : 128 ms QRS Dur : 076 ms QT Int : 250 ms P-R-T Axes : 040 -03 020 degrees QTc Int : 399 ms Sinus tachycardia Minimal voltage criteria for LVH, may be normal variant ( R in aVL ) Nonspecific ST abnormality Abnormal ECG No previous ECGs available Referred By: Chuck Hazel Electronically Signed By:WILLIAN CARRANZA
--- NOTE | ~2024-02-04 | CT_ITS ---
EXAMINATION: CTA CHEST PE STUDY, CT ABDOMEN AND PELVIS CLINICAL INFORMATION: rule out PE. Lower GI bleed COMPARISON: No pertinent prior studies are available for comparison. TECHNIQUE: Prior to contrast administration, noncontrast localization images were obtained. After the administration of 100 mL of Omnipaque nonionic IV contrast, contiguous thin slice helical images were obtained through the thorax. Following this the examination was continued through the abdomen and then pelvis. Reformatted MIP images in the coronal and sagittal planes as well as thin slice reformatted images of coronal and sagittal planes were obtained at the acquisition workstation. This CT examination was performed using dose optimization techniques as appropriate, variously including the following: *Automated exposure control *Adjustment of mA and/or kV according to patient size (this includes techniques or standardized protocols for targeted exams where dose is matched to indication/reason for exam; i.e. extremities or head) *Use of iterative reconstruction technique DLP: 2531 mGy-cm. FINDINGS: CHEST: The bolus timing on this study was acceptable for visualization of the pulmonary arterial tree. There are no intraluminal pulmonary arterial filling defects present to suggest pulmonary embolism. Subpleural emphysematous changes seen bilaterally with fibrotic markings suggesting sequela of interstitial lung disease/fibrosis. No dense consolidation. Central airways grossly unremarkable. Patient is intubated. No abnormal pulmonary nodules or masses are appreciated. Shotty hilar and mediastinal lymph nodes but no significant hilar or mediastinal adenopathy. There is no evidence of pleural effusion or pneumothorax. The heart is normal in size. No evidence of ventricular septal bowing or right heart strain. The mediastinum and great vessels are normal. There is no pericardial effusion or pericardial thickening. ABDOMEN/PELVIS: Liver, Gallbladder and Biliary Tree: The liver is normal in size, shape, and attenuation. No focal hepatic lesion or biliary ductal dilatation is present. Gallstones within the dependent aspect of the partially contracted but otherwise unremarkable gallbladder. Pancreas: Unremarkable. Spleen: Unremarkable. Adrenal Glands: Unremarkable. Kidneys and Ureters: The kidneys are normal in size, shape, and attenuation. No hydronephrosis, hydroureter, or calculi seen. No perinephric stranding. Bladder: Decompressed by Jamison catheter Gastrointestinal Tract: Scattered colonic diverticulosis but no colonic wall thickening suggest diverticulitis. On the arterial phase portion of the study there was dense contrast seen in the region of the distal descending colon which was not present on the precontrast images. There is puddling of contrast in this area on the delayed images consistent with GI bleed in this location. Abdominal Wall: No significant hernia is appreciated. Lymphovascular Structures: Vascular calcification within the aortoiliac system. Right femoral arterial catheter. Pelvic Viscera: Unremarkable. Osseous Structures: Multilevel degenerative changes in the spine. CT/CT abdomen pelvis w IV con IMPRESSION: 1. No evidence for pulmonary emboli. Chronic appearing changes in the lungs suggesting a component of underlying interstitial lung disease/fibrosis. 2. Contrast is seen within the distal descending colon on the arterial phase portion of the study which was not present on the precontrast images. There is subsequent puddling of contrast in this area on the delayed images consistent with significant GI bleed in this location. 3. VTE: Negative. This critical result was discussed with the patient's nurse at 6:15 PM. Patient's physician was reportedly already with the patient in interventional radiology by this time. Electronically signed by: Gabriel Santiago MD 02/04/2024 06:46 PM EDT
--- NOTE | ~2024-02-04 | IR_ITS ---
History: 73-year-old male with severe gastrointestinal bleeding. Prior CTA suggested a source in the descending colon. Procedures performed: 1. Ultrasound-guided catheterization of the left common femoral artery 2. Catheterization of the inferior mesenteric artery with selective arteriography. 3. Catheterization of a third order branch of the inferior mesenteric artery with selective arteriography followed by embolization and postembolization angiography. Physician: Merlyn Figueroa MD FSIR Anesthesia: IV moderate sedation was administered under my direct supervision for a total of 30 minutes with continuous physiologic monitoring. See nurse's notes for dosages. In addition, 8 mL of 1% lidocaine was administered for local anesthesia. Specimen: None Drains: None Estimated blood loss: Minimal Consultations: None Procedure in detail: Informed and written consent was obtained and placed in the chart. Ultrasound the left groin showed a widely patent left common femoral artery. 1% lidocaine was injected subcutaneously under ultrasound guidance and extended to the artery. A small incision was made in the skin with a #11 blade. Through the incision and under ultrasound guidance with permanent recordings and direct visualization of needle entry into the artery, the left common femoral artery was catheterized in a retrograde fashion with a micropuncture set. Subsequently, using the Seldinger technique, a 5 Occitan sheath was placed. A Sos 2 catheter was used to select the inferior mesenteric artery where selective arteriography was performed. This did not show active extravasation, but the branch that was felt to be a candidate branch based on the prior imaging was seen as well as contrast still within the colon presumably from prior hemorrhage. Using a Progreat microcatheter, the third order branch that we suspected had been bleeding was catheterized where selective arteriography was performed, again failing to demonstrate active bleeding. Nonetheless, based on our high clinical suspicion, this branch was embolized with coils ranging between 2 and 5 mm in size. Follow-up radiography showed an excellent result with no active extravasation, coil migration, nor other complication. We elected to terminate the case at this point. The Sos 2 catheter and microcatheter were removed but the sheath was left in place as an arterial line. It was secured to the skin with 2-0 silk suture. Summary: Successful embolization of a third order branch of the inferior mesenteric artery supplying the descending colon. The patient will be carefully monitored for additional bleeding as described above. Electronically signed by: Rj Figueroa MD 02/12/2024 02:38 PM EDT
--- NOTE | ~2024-02-04 | IR_ITS ---
Angiogram and embolization. HISTORY/INDICATION: GI bleed. Active extravasation seen on CTA. PROCEDURE/FINDINGS: Informed consent had been obtained prior to the procedure from patient's healthcare proxy. Patient was brought from the ICU intubated and sedated. Patient was placed supine on the fluoroscopy table. A left common femoral 5 [place] sheath is in place from prior angiogram which had been left in place in order to serve as an arterial line. This was sterilely prepped and draped as well as the surrounding skin. A 5 [place]an Sos Omni 2 catheter was inserted and formed in the thoracic aorta and was then used to select the inferior mesenteric artery. Angiogram demonstrates arterial irregularity with small focal extra in the distal descending colon in concordance with findings on previous cross-sectional imaging. Coils from previous embolization procedure are in place leading to this segment of bowel. However, there is a more inferior sigmoidal branch of the inferior mesenteric artery which has branch vessel leading to this segment of bowel. This branch was selected with a 2.4 [place]an microcatheter. After confirming position, embolization was performed with 3 3 mm coils. Post embolization angiogram demonstrates successful occlusion of the vessel. There is no further evidence of arterial irregularity or active extravasation. There is maintained perfusion to the bowel. Satisfied with our result we elected to terminate the procedure. The catheter was removed. The sheath was left in place to again be used as an arterial line in the ICU. Patient was transferred back to the ICU in stable condition. IR/IR embolization hemorrhage IMPRESSION: Angiogram demonstrates ongoing bleeding at distal descending/proximal sigmoid colon. Successful coil embolization as detailed above. Electronically signed by: Gabriel Herrera MD 02/06/2024 01:23 PM EDT
--- NOTE | ~2024-02-04 | CT_ITS ---
EXAMINATION: CT ANGIOGRAM ABDOMEN AND PELVIS CLINICAL INFORMATION: Rectal bleed COMPARISON: CT 02/04/2024 TECHNIQUE: Multiple axial images were obtained through the abdomen and pelvis following the administration of 80 mL of Omnipaque 350 intravenous contrast. Images were reviewed on a dedicated 3-D workstation. This CT examination was performed using dose optimization techniques as appropriate, variously including the following: *Automated exposure control *Adjustment of mA and/or kV according to patient size (this includes techniques or standardized protocols for targeted exams where dose is matched to indication/reason for exam; i.e. extremities or head) *Use of iterative reconstruction technique DLP: 1834 mGy-cm FINDINGS: The aorta is normal in course and caliber and there is moderate eccentric calcification disease without stenosis. Bolus timing is suboptimal which mildly limits evaluation as there is quite a bit of venous contamination of arterial phase. The iliac bifurcation is unremarkable. There is calcific disease of the common, internal, and external iliac arteries without hemodynamically significant stenosis identified. Proximal femoral vessels are patent. There is a right femoral venous catheter in place which terminates within the right common iliac vein. There is a left femoral arterial catheter in place that terminates within the external iliac artery. The celiac, superior mesenteric, and inferior mesenteric arteries are patent and there may be mild narrowing at the origin of the inferior mesenteric artery. Within the sigmoid colon on the postcontrast phase there is linear hyperenhancement within the colon compatible with active contrast extravasation with increasing enhancement on venous phase. There are embolization coils within a branch of the inferior mesenteric artery. Single renal artery to each kidney. Renal arteries are patent. The iliofemoral veins have an overall unremarkable appearance. There is no evidence of femoral or iliac thrombosis. Inferior vena cava is normal in caliber and well-opacified. Renal veins are patent. The portal-mesenteric venous system is widely patent. There are fibrotic changes at the lung bases and regions of groundglass attenuation which are similar to the prior study. No pleural fluid collections are seen. The liver is normal in size and overall attenuation. No liver lesions are seen. No intra or extrahepatic duct dilation is seen. Gallbladder is physiologically distended. There is a calcified gallstone present and there are no pericholecystic inflammatory changes to suggest cholecystitis. There is no intra or extrahepatic duct dilation. There are a few punctate calcifications within the region of the pancreatic head. This could relate to history of prior pancreatitis. The pancreas is otherwise unremarkable and there is no pancreatic duct dilation. Spleen is unremarkable. Adrenal glands are unremarkable. The kidneys are normal in size since enhance symmetrically. There are no calculi, hydronephrosis, or hydroureter. A Jamison catheter is in place and the bladder partially decompressed. There is mild bladder wall trabeculation. The distal esophagus has an enteric tube within it which terminates within the proximal stomach. The distal esophagus and stomach are otherwise unremarkable. The large and small bowel are normal in course and caliber and there are no bowel inflammatory changes seen. There is colonic diverticulosis without inflammation suggest diverticulitis and there is a normal appendix. On arterial phase there is linear hyperenhancement within the lumen of the sigmoid colon suggesting contrast extravasation, as noted above. There is no free intraperitoneal fluid. There is no abdominopelvic or retroperitoneal lymphadenopathy seen. Prostate and seminal vesicles are unremarkable. There is no significant hernia of the body wall. There are multilevel degenerative changes of the imaged thoracolumbar spine and there are no acute or aggressive bony abnormalities seen. CT/CT angio abdomen pelvis IMPRESSION: Active contrast extravasation within a segment of the sigmoid colon supplied by branch of the inferior mesenteric artery suggesting ongoing hemorrhage. Fleischner guidelines were followed. Emergent findings were communicated with Dr. Mtz by Dr. Santa by telephone at 1735 hours. Electronically signed by: Chandrakant Santa MD 02/05/2024 05:42 PM EDT
--- NOTE | ~2024-02-04 | XR_ITS ---
EXAMINATION: XR CHEST CLINICAL INFORMATION: Chest pain. COMPARISON: Correlation made with CT chest 01/06/2024. TECHNIQUE: AP view of the chest was obtained. FINDINGS: Numerous leads overlie the thorax. Low lung volumes noted with mild elevation right hemidiaphragm. Diffuse interstitial changes throughout both lungs compatible with known pulmonary fibrosis. Allowing for low lung volumes and extensive underlying interstitial disease, no definite superimposed active disease is identified on this limited exam. No pleural effusions. Heart size is normal. There is vascular crowding in the hilar regions. There is calcification of the aorta. Prominent pulmonary arteries noted bilaterally. Degenerative changes in the sternoclavicular joints, first rib costomanubrial joints, bilateral AC joints and shoulder joints.. Degenerative changes throughout the imaged spine, moderate in severity. Refer to the prior CT. 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 Grossly no soft tissue abnormalities. XR/XR chest 1V IMPRESSION: 1. Low lung volumes with underlying pulmonary fibrosis. Allowing for technical limitations and degree of underlying lung disease, no definite active disease on this limited exam. A subtle pneumonia could easily be obscured. 2. 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 Refer to prior CT dated 01/06/2024. Electronically signed by: Pj Schofield MD 02/04/2024 10:16 AM EDT
--- NOTE | ~2024-02-04 | XR_ITS ---
EXAMINATION: XR CHEST CLINICAL INFORMATION: Status post intubation and OG tube placement COMPARISON: Chest radiograph from 02/04/2024, CT chest from 01/06/2024 TECHNIQUE: Frontal view of the chest was obtained. FINDINGS: Endotracheal tube approximately 4.0 cm from the level of the magen. No enteric tube definitively visualized. Bilateral low lung volumes. Bilateral diffuse interstitial prominence compatible with history of known pulmonary fibrosis though underlying infectious/inflammatory etiology not excluded. Left basilar atelectasis versus scarring. No pneumothorax. Trachea is midline. Cardiomediastinal silhouette is stable. No large pleural effusion. Degenerative changes of the thoracolumbar spine. Soft tissues are unremarkable. XR/XR chest 1V IMPRESSION: 1. Endotracheal tube approximately 4.0 cm from the level of the magen. 2. No enteric tube definitively visualized. 3. Bilateral low lung volumes. 4. Bilateral diffuse interstitial prominence compatible with history of known pulmonary fibrosis though underlying infectious/inflammatory etiology not excluded. 5. Left basilar atelectasis versus scarring. Electronically signed by: Angie Brown MD 02/04/2024 11:52 AM EDT
--- NOTE | ~2024-02-04 | XR_ITS ---
EXAMINATION: XR CHEST CLINICAL INFORMATION: OG tube placement. COMPARISON: Most recent chest radiograph done earlier the same day. TECHNIQUE: Frontal view of the chest was obtained. FINDINGS: Interval placement of an enterogastric tube with the tip in the region of the gastric body. Redemonstration of an endotracheal tube with the tip approximately 5 cm proximal to the magen. Small bilateral pleural effusions with diffuse bilateral patchy airspace opacities, similar when compared to the prior examination. No pneumothorax. Stable cardiomediastinal silhouette. XR/XR chest 1V IMPRESSION: 1. Enterogastric tube with the tip in the region of the gastric body. 2. Endotracheal tube with the tip approximately 5 cm proximal to the magen. 3. Small bilateral pleural effusions with diffuse bilateral patchy airspace opacities, similar when compared to the prior examination. Electronically signed by: Himanshu Bello MD 02/04/2024 01:03 PM EDT
[2024-02-04] MEDS: fentaNYL citrate/NS 1,000 MCG/100 ML PLAST..BAG 2.5 MCG IVCONT (09:35)
[2024-02-04 09:36] LABS: Glucose, Whole Blood 139 mg/dL (60-115)
[2024-02-04] MEDS: 0.9 % Sodium Chloride 1,000 ML 999 ML IVCONT ×2 (09:45→11:04)
[2024-02-04 09:46] LABS: ABG HCO3 12 mmol/L (22-26); ABG pCO2 27 mmHg (32-45); ABG pH 7.26 (7.35-7.45); ABG pO2 85 mmHg (83-108)
[2024-02-04] MEDS: Ketamine HCl/NS 50 MG/5 ML SYRINGE 80 MG IVPUSH (09:50)
[2024-02-04] MEDS: Succinylcholine Chloride 200 MG/10 ML VIAL 100 MG IVPUSH ×2 (09:51→19:42)
--- NOTE | 2024-02-04 09:52 | PC.NURSE ---
7.5 ET tube 25@lip +color change
[2024-02-04] MEDS: fentaNYL citrate/PF 100 MCG/2 ML VIAL IVPUSH (10:07)
[2024-02-04] MEDS: Midazolam HCl/PF 2 MG/2 ML VIAL IVPUSH ×2 (10:08→17:45)
[2024-02-04] MEDS: Norepinephrine Bitartrate/D5W 8 MG/250 ML PLAST..BAG 7.48 MG IVCONT (10:15)
--- NOTE | 2024-02-04 10:31 | ED.SOB ---
HPI - SOB/Dyspnea General Chief Complaint: Dyspnea Stated Complaint: FALL,AMS,LOW BP 80/53,HR 153 PER EMS Time Seen by Provider: 02/04/24 09:32 Source: patient, family and EMS History of Present Illness HPI Narrative: This is a 73 years old patient with history of interstitial lung disease on home oxygen, presented to the emergency department via ambulance in acute respiratory distress tachypneic SI as a 50 tachycardic 150. Patient has baseline as poor motility, he was going to the bathroom and according to his lower him self to the floor. MD elicited complaint: shortness of breath Pertinent past history: other (Interstitial lung this) Onset (ago): hour(s) (5) Timing: constant Severity: severe Exacerbating factors: nothing Relieving factors: oxygen Associated symptoms: denies other symptoms Related Data Home oxygen amount: 4 liters Home Medications ?Medication ?Instructions ?Recorded ?Confirmed allopurinol 100 mg tablet 200 mg PO DAILY 11/18/20 amlodipine 10 mg tablet 10 mg PO DAILY 11/18/20 atorvastatin 40 mg tablet 40 mg PO DAILY 11/18/20 benazepril 10 1 tab PO DAILY 11/18/20 mg-hydrochlorothiazide 12.5 mg tablet doxycycline monohydrate 100 mg 100 mg PO 02/04/24 capsule Previous Rx's ?Medication ?Instructions ?Recorded nintedanib 100 mg capsule (Ofev) 100 mg PO Q12H 30 days #60 caps 06/21/23 albuterol sulfate 90 mcg/actuation 2 puff inhalation Q4-6H PRN 07/17/23 aerosol inhaler shortness of breath or wheezing 30 days #1 ea prednisone 10 mg tablet 10 mg PO DIRECTED #50 tabs 01/30/24 Allergies Allergy/AdvReac Type Severity Reaction Status Date / Time No Known Allergies Allergy Verified 02/04/24 09:41 Review of Systems Review of Systems: Yes Unobtainable due to mental condition [facility] Social History Social History (Updated 09/26/23 @ 10:12 by MONICO Seay) Patient Tobacco Use Status: Former Tobacco user Years Smoked: quit 30+ years ago Advance Directives: Yes Advance Directives on File: No Physical Exam Vital Signs: Vital Signs: Last Vital Signs Pulse 145 H 02/04/24 10:00 Resp 50 H 02/04/24 09:38 BP 109/79 02/04/24 10:00 Pulse Ox 99 02/04/24 10:00 O2 Del Method Room Air 02/04/24 10:00 FiO2 100 02/04/24 10:01 BMI result Body Mass Index 26.7 Severe respiratory distress Const: General: alert and in distress Nutritional Appearance: average body habitus HEENT: Other: Atraumatic Throat: Yes posterior oropharynx normal Neck: Other: Supple neck Resp: Effort & Inspection: tachypneic and tripod positioning Auscultation: rhonchi Cardio: Jugular venous distension: no JVD Rhythm: regular rhythm GI: Inspection: Yes normal to inspection Palpation (GI): Soft to palpation Skin: General skin exam: no rashes or lesions noted Course Reevaluation(s) Reevaluation #1: Patient remain in respiratory distress we attempted BiPAP for about 15 minutes without improvement decision for intubation, patient was intubated with RSI ketamine sux, a central line was placed in the right femoral vein because of poor access Time: 10:35 Reevaluation #2: Spoke with the and the 2 daughters spoke with the ICU attending Medical Decision Making Medical Decision Making [facility] Narrative: Patient presented in respiratory distress will do chest x-ray labs ABG and reassess Differential Diagnosis Differential Diagnoses: The differential diagnosis associated with the presentation includes Pneumonia/pneumothorax/CHF Admission/Observation Consideration of admission/observation: Escalation of care including admission/observation considered Lab Data [facility] Lab Attestation statement: I reviewed the patient's lab results. Labs: Lab Results 02/04/24 02/04/24 Range/Units 09:28 09:36 O2 Saturation 93.0 % ABG pH at Pt Temp 7.26 L (7.35-7.45) ABG pCO2 at Pt Temp 27 L (32-45) mmHg ABG pO2 at Pt Temp 85 (83-108) mmHg ABG HCO3 12 L (22-26) mmol/L ABG Base Excess (Actual) -13.0 mmol/L POC Glucose 139 H (60-115) mg/dL Independent Interpretation I performed an independent interpretation of an: EKG (Sinus tachycardia rate 150 no ischemic change) Independent Historian Clinical information obtained from an independent historian. History obtained from or confirmed by: Spouse daughters Chronic Conditions Patient?s care impacted by: Other (Interstitial lung disease) Procedures Central Line Placement Right Femoral: Time Out Performed: Yes Patient Placed on Monitor/Pulse Ox: Yes MD Prep: gloves Central Line Prep: Povidone-Iodine 1% Ultrasound Used for Placement: Yes Central Line Lumen Inserted: triple Post Procedure: sutured in place Patient Tolerated Procedure: well Complications: none Intubation Intubation Type:: Endotracheal Tube Insertion Intubation Date:: 02/04/24 Intubation Time:: 10:36 Time out performed: Yes sedative: Ketamine Mg Given: 80 paralytic: Succinylcholine Mg Given: 100 Laryngoscope: fiber optic video scope ET Tube Size: 7.5 ET Tube Uncuffed: No Tube Placement Confirmation: visualized tube passing through cords and equal breath sounds bilaterally Patient Tolerated Procedure: well Intubation Complications: none Critical Care Time Critical Care Time Critical Care Time: Yes Total Critical Care Time: 90 Attestation: Speaking with the EMS, speaking with the family taking care of the patient, speaking with the ICU attending Discharge Plan Discharge Clinical Impression: Respiratory failure Qualifiers: Chronicity: acute Patient Disposition: Admitted As Inpatient Print Language: Kenyan
--- NOTE | 2024-02-04 10:41 | P.HPCC_ITS ---
History of Present Illness Date of Service: 02/04/24 Chief Complaint: Fall 73-year-old gentleman who is a previous smoker quit in 1999 with past medical history of interstitial lung disease UIP/IPF on supplemental home oxygen 3 liters/minute, on oral steroids was brought into the ED after a fall at home. Apparently patient was walking to the restroom with support with his when he fell down so EMS was called. When he was brought into the ED he was hypoxic to low 80s and tachypneic to 50s he was placed on BiPAP support with no improvement in his symptoms so was intubated and placed on ventilator support. He is also found to be very hypotensive needing maximum Levophed support so MICU was consulted for admission Review of Systems Review of Systems: Unable to obtain as patient is intubated and on ventilator support [facility] Social History Social History (Updated 09/26/23 @ 10:12 by Leatha Marin Coco) Patient Tobacco Use Status: Former Tobacco user Years Smoked: quit 30+ years ago Advance Directives: Yes Advance Directives on File: No Meds Allergies Allergy/AdvReac Type Severity Reaction Status Date / Time No Known Allergies Allergy Verified 02/04/24 09:41 Active Medications: Current Medications Piperacillin Sod/Tazobactam (Sod 4.5 gm/ Sodium Chloride) 100 mls @ 200 mls/hr IV ONCE ONE Stop: 02/04/24 10:58 Sodium Chloride (Ns) 1,000 mls @ 999 mls/hr IVCONT .Q1H1M ELEN Stop: 02/04/24 11:30 Vancomycin HCl (Vancomycin/Ns) 2,000 mg in 500 mls @ 250 mls/hr IV ONCE ONE Stop: 02/04/24 12:44 Albumin Human (Kedbumin 25 %) 100 mls @ 133.333 mls/hr IV Q1H [facility] Stop: 02/04/24 12:29 Home Medications ?Medication ?Instructions ?Recorded ?Confirmed ?Last Taken ?Type allopurinol 100 mg tablet 200 mg PO DAILY 11/18/20 Unknown History amlodipine 10 mg tablet 10 mg PO DAILY 11/18/20 Unknown History atorvastatin 40 mg tablet 40 mg PO DAILY 11/18/20 Unknown History benazepril 10 1 tab PO DAILY 11/18/20 Unknown History mg-hydrochlorothiazide 12.5 mg tablet doxycycline monohydrate 100 mg 100 mg PO 02/04/24 Unknown History capsule Physical Exam Vital Signs: Vital Signs: Last Vital Signs Pulse 145 H 02/04/24 10:00 Resp 50 H 02/04/24 09:38 BP 109/79 02/04/24 10:00 Pulse Ox 99 02/04/24 10:00 O2 Del Method Room Air 02/04/24 10:00 FiO2 100 02/04/24 10:01 BMI result Body Mass Index 26.7 General: acute distress, ill appearing and tired appearing Nutritional Appearance: well nourished and normal weight Eyes: appearance normal, both eyes and all related structures; Alignment and Position: alignment normal and position normal Neck: No lymphadenopathy, no thyromegaly Resp: bilateral air entry poor, crackles heard Cardio: Regular rate, regular rhythm; Heart sounds: S1 normal heart sound present and S2 normal heart sound present GI: soft, nontender, no guarding, no hepatosplenomegaly : bladder normal to inspection, bladder normal to palpation, no renal angle tenderness Skin: no rashes or lesions noted and elasticity normal Neuro: Sedated, no focal deficits s Results Labs Labs: Laboratory Results - last 24 hr 02/04/24 02/04/24 09:28 09:36 O2 Saturation 93.0 ABG pH at Pt Temp 7.26 L ABG pCO2 at Pt Temp 27 L ABG pO2 at Pt Temp 85 ABG HCO3 12 L ABG Base Excess (Actual) -13.0 POC Glucose 139 H Imaging Radiologist's Impressions: Impressions Chest X-Ray 02/04/24 09:32 IMPRESSION: 1. Low lung volumes with underlying pulmonary fibrosis. Allowing for technical limitations and degree of underlying lung disease, no definite active disease on this limited exam. A subtle pneumonia could easily be obscured. 2. 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 Refer to prior CT dated 01/06/2024. 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: Status: Acute Plan Neuro: Acute encephalopathy possibly due to metabolic encephalopathy On fentanyl for analgesia, Versed for sedation as the patient is very hypotensive Close neurological status monitoring in the ICU every hour Cardiac: Undifferentiated shock: On Levophed support, titrate Levophed to keep map above 65 mm Hg If needed we will add phenylephrine as the 2nd pressors Respiratory: Acute on chronic hypoxemic respiratory failure due to progression of interstitial lung disease Intubated and placed on ventilator support On PRVC mode FiO2[100%], PEEP 5, TV 400, RR 20, we will wean the FiO2 as tolerated during the day Peak pressures and plateau pressures are under the curve Ventilator management bundle with head end elevation, aspiration precaution, chlorhexidine mouthwash, daily awakening trials, daily spontaneous breathing trials GI: We will start on tube feeds Renal: We will closely monitor I's and O's Avoid nephrotoxic medications Heme: Chronic anemia, closely monitor H&H, transfuse for hemoglobin less than 7 grams/deciliter Endocrine: Blood sugars under control Sliding scale insulin as needed Infectious disease: Pancultures sent We will start on empiric vanc and cefepime Albumin ordered as per sepsis protocol We will also get MRSA nares Musculoskeletal: Decubitus ulcer prevention protocol Lines: Right femoral central line Prophylaxis: Lovenox, pantoprazole Critical care spent time spent is about 60 minutes on evaluation and admission of the patient to the critical care unit, formulating critical care per management, ventilator management, sedation management, titrating ventilator settings, vasopressor management, close hemodynamic monitoring
[2024-02-04 10:46] LABS: Hematocrit 33.6 % (42.0-52.0); Hemoglobin 11.9 g/dl (14.0-18.0); Mean Corpuscular HGB Conc 35.4 g/dl (31.0-36.0); Mean Corpuscular Hemoglobin 34.5 pg (27.0-33.0); Mean Corpuscular Volume 97.4 fL (80.0-98.0); Mean Platelet Volume 9.7 fL (9.4-12.4); NRBC Pct Auto 0.3 /100WBC (0.0-0.2); Platelet Count 305 X10*3/uL (160-400); Red Blood Count 3.45 X10*6/uL (4.60-5.80); Red Cell Distribution Width 15.8 % (11.0-16.0); White Blood Count 25.7 X10*3/uL (4.8-10.8)
--- NOTE | 2024-02-04 11:00 | PC.NURSE ---
late charting due to patient care, patient arrives to ED from home via EMS after sustaining an unwitnessed fall at home, upon arriving to the house, EMS found siobhannet to be tachypneic with a respiratory rate in the 40s, tachycardic in the 150s and diaphoretic, initially patient was hypotensive with SBP in the 80s, patient was placed on NRB district captain. upon arriving, patient was diaphoretic and tachycardic in the 150s, pressure upon arrival 90/52 and patient was tachypneic with a respiratory rate in the 50s. patient was initially alert but unable to respond to questions, placed on BIPAP by respirtory states to this Rn that he does not remember falling, and that he has been experiencing this shortness of breath for the last week or so, hx of interstitial lung disease, htn. plan to intubate patient r/t work of breathing.
[2024-02-04 11:04] LABS: ABG Refer to POC result
[2024-02-04 11:07] LABS: B Type Natriuretic Peptide 75 pg/mL (<100); Troponin-I High Sensitivity 20.9 ng/L (<3.5-35.0)
[2024-02-04 11:10] LABS: Alanine Aminotransferase 26 U/L (0-40); Albumin Level 3.1 g/dL (3.5-5.0); Alkaline Phosphatase 86 U/L (39-117); Anion Gap 22 (12-20); Aspartate Amino Transferase 35 U/L (5-37); Atypical Lymph Absolute Manual 0.5 x10*3/uL; Atypical Lymphs Percent Manual 2 % (0-6); Band Neutrophils Percent 17 % (3-5); Blood Urea Nitrogen 42 mg/dL (9-16); Calcium 8.9 mg/dL (8.4-10.2); Carbon Dioxide 20 mmol/L (22-29); Chloride 93 mmol/L (96-108); Creatinine Clr Calc Pharmacy 38.8; Estimated Glomerular Filt Rate 41; Glucose Random 212 mg/dL (60-115); Lymphocytes Absolute Manual 0.8 X10*3/uL (1.2-4.9); Lymphocytes Percent Manual 3 % (20-40); Macrocytosis 1+ (5-14) /OIF; Metamyelocytes Absolute 0.5 X10*3/uL; Metamyelocytes Percent 2 %; Monocytes Absolute Manual 0.3 X10*3/uL (0.1-1.2); Monocytes Percent Manual 1 % (2-11); Neutrophils Absolute Manual 23.6 X10*3/uL (2.0-8.3); Neutrophils Percent Manual 75 % (45-73); Phosphorus 6.8 mg/dL (2.7-4.5); Potassium 4.1 mmol/L (3.3-5.1); RBC Morphology NOTED; Sodium 131 mmol/L (135-145); Total Protein 7.1 g/dL (6.5-8.0)
--- NOTE | 2024-02-04 11:14 | PHA.MEDREC ---
Addendum entered by Roya Ro RPh 02/04/24 11:24: reviewed by [facility]. Original Note: Pharmacy Consult ? Medication Reconciliation Pharmacy has completed the medication reconciliation. Spoke to at bedside. new all of patients medications. states that the Md put a hold on Nintedanib 100 mg , last dose was over 2 weeks ago and she wasn't sure if the DR will continue. Pednisone 10 mg is a taper dose starting at 40 daily for 5 days then taper by 1 tablet ever 5 days, Patient is on day 6 of taper 30 mg daily for 5 days.
[2024-02-04 11:15] LABS: Acanthocytes 2+ (3-5) /OIF; Polychromasia 1+ (0-2) /OIF
[2024-02-04 11:16] LABS: Platelet Estimate NORMAL (NORMAL); Platelet Morphology Comment NORMAL; Toxic Vacuolation PRESENT
[2024-02-04 11:17] LABS: Appearance Urine Clear; Color Urine Dark Yellow; Glucose Urine UA Negative (Negative); Leukocyte Esterase Urine Trace (Negative); Nitrite Urine Negative (Negative); PH 5.5 (5.0-9.0); Specific Gravity - Urine 1.025 (1.005-1.025); UMIC TRIGGER UACC YES; Urine Blood Negative (Negative); Urine Ketones Negative (Negative); Urine Protein 30 (1+) mg/dL (Neg-Trace)
[2024-02-04 11:21] LABS: Pappenheimer Bodies PRESENT
[2024-02-04 11:22] LABS: Bacteria Urine None Seen (None Seen); Hyaline Casts Urine 0-2 /LPF (0-2); RBC Urine 0-2 /HPF (0-2); Squamous Epithelial Cell Urine 0-2 /HPF (0-2); WBC Urine 0-5 /HPF (0-5)
--- NOTE | 2024-02-04 11:45 | PC.NURSE ---
orders not placed by MD, verbal orders only on patient, patient with minimal IV access, provider to place central line, provider noted to not cover central line with sterile dressing, this RN dawned sterile gloves and used betadine to clense area, dressing placed, blood work obtained via central line and sterile procedure and sent to lab. delay in medication administration r/t lack of blood work results, physical orders, or adequate IV access. patient continues to be hypotensive despite levophed drip, propofol held due to hypotension, fentanyl, and versed drip hanging per verbal orders. IV fluids hanging peripherally per verbal order. ICU requesting patient go to CT scan before transfer for CTA, made aware patient is not currently stable enough for CT scan and was bucking the vent, there is not adequate access for CTA as pressors and sedatives are running through all lines. propfol to be started once patient blood pressure is in adequate stable range.
[2024-02-04 11:57] LABS: Influenza A PCR NEGATIVE (Negative); Influenza B PCR NEGATIVE (Negative); Resp Syncy Virus RNA Qual PCR NEGATIVE (Negative); SARS COV2 PCR INHOUSE POSITIVE (Negative)
[2024-02-04] MEDS: propofoL 1,000 MG/100 ML VIAL 19.15 MG IVCONT (12:03)
--- NOTE | 2024-02-04 12:03 | PC.NURSE ---
propofol drip initiated on this date started at 40mcgg/kg/min per verbal from
[2024-02-04 12:43] LABS: Reflex Lactate? Lactic Acid Added
[2024-02-04] MEDS: Enoxaparin Sodium 40 MG/0.4 ML SYRINGE SUBCUT (12:43)
[2024-02-04] MEDS: Albumin Human 25 % 100 ML 133.33 ML IV ×4 (12:43→22:27)
[2024-02-04 12:52] LABS: MRSA Nasal PCR NEGATIVE (Negative); SA Nasal PCR POSITIVE (Negative)
[2024-02-04] MEDS: vancomycin/NS 2,000 MG/500 ML PLAST..BAG 250 MG IV (13:26)
[2024-02-04 13:32] LABS: Adenovirus PCR Not Detected (Not Detect.); Bordetella parapertussis PCR Not Detected (Not Detect.); Bordetella pertussis PCR Not Detected (Not Detect.); Chlamydia pneumoniae PCR Not Detected (Not Detect.); Coronavirus 229E PCR Not Detected (Not Detect.); Coronavirus HKU1 PCR Not Detected (Not Detect.); Coronavirus NL63 PCR Not Detected (Not Detect.); Coronavirus OC43 PCR Not Detected (Not Detect.); Human metapneumovirus PCR Not Detected (Not Detect.); Influenza A PCR Not Detected (Not Detect.); Influenza B PCR Not Detected (Not Detect.); Mycoplasma pneumoniae PCR Not Detected (Not Detect.); Parainfluenza 1 PCR Not Detected (Not Detect.); Parainfluenza 2 PCR Not Detected (Not Detect.); Parainfluenza 3 PCR Not Detected (Not Detect.); Parainfluenza 4 PCR Not Detected (Not Detect.); RSV PCR Not Detected (Not Detect.); Rhino/Enterovirus PCR Not Detected (Not Detect.)
[2024-02-04 13:38] LABS: ~Lactic Acid-LAB USE ONLY 3.7 mmol/L (0.5-2.0)
[2024-02-04 13:44] LABS: SARS-CoV-2 PCR Detected (Not Detect.)
[2024-02-04] MEDS: Midazolam HCl/NS 50 MG/50 ML PLAST..BAG IVCONT (13:53)
[2024-02-04] MEDS: propofoL 1,000 MG/100 ML VIAL 16.76 MG IVCONT ×2 (13:54→13:56)
[2024-02-04] MEDS: methylPREDNISolone Sod Succ 125 MG/2 ML VIAL 60 MG IVPUSH ×2 (13:55→20:35)
[2024-02-04] MEDS: Piperacillin Sodium/Tazobactam 4.5 GM in 0.9 % Sodium Chloride 100 ML IV ×2 (13:55→20:34)
[2024-02-04 14:58] LABS: Reflex Lactate? 2 Y
[2024-02-04] MEDS: 0.9 % Sodium Chloride 1,000 ML 999 ML IV (15:15)
[2024-02-04] MEDS: Albumin Human 25 % 100 ML 200 ML IV (15:15)
[2024-02-04 15:40] LABS: Mean Corpuscular HGB Conc 35.7 g/dl (31.0-36.0); Mean Corpuscular Hemoglobin 34.1 pg (27.0-33.0); Mean Corpuscular Volume 95.6 fL (80.0-98.0); Mean Platelet Volume 9.6 fL (9.4-12.4); NRBC Pct Auto 0.4 /100WBC (0.0-0.2); Platelet Count 242 X10*3/uL (160-400); Red Blood Count 2.05 X10*6/uL (4.60-5.80); Red Cell Distribution Width 15.6 % (11.0-16.0); White Blood Count 18.4 X10*3/uL (4.8-10.8)
[2024-02-04 15:49] LABS: D Dimer High Sensitivity 3187 NG/ML
[2024-02-04 15:54] LABS: ~Lactic Acid-LAB USE ONLY 1.8 mmol/L (0.5-2.0)
[2024-02-04 16:01] LABS: Anion Gap 13 (12-20); Blood Urea Nitrogen 33 mg/dL (9-16); Calcium 7.6 mg/dL (8.4-10.2); Carbon Dioxide 23 mmol/L (22-29); Chloride 101 mmol/L (96-108); Creatinine Clr Calc Pharmacy 55.8; Estimated Glomerular Filt Rate > 60; Glucose Random 154 mg/dL (60-115); Sodium 133 mmol/L (135-145)
[2024-02-04 16:09] LABS: Hematocrit 19.6 % (42.0-52.0)
[2024-02-04] MEDS: Rocuronium Bromide 50 MG/5 ML VIAL IVPUSH (18:06)
[2024-02-04] MEDS: fentaNYL citrate/NS 1,000 MCG/100 ML PLAST..BAG 5 MCG IVCONT (19:30)
[2024-02-04] MEDS: Protamine Sulfate 50 MG/5 ML VIAL 40 MG IV (19:34)
[2024-02-04] MEDS: Norepinephrine Bitartrate/D5W 8 MG/250 ML PLAST..BAG 29.93 MG IV (19:42)
--- NOTE | 2024-02-04 19:46 | PC.NURSE ---
p: alteration in gastrointestinal i: per care plan e: at approximately 1500 pt was noted to have a large, loose, bloody BM with clots. MD made aware. albumin and nacl bolus given per order. pt continued to have large, bloody bowel movements. 3 units RBCs given total. patient was taken to CT scan and eventually taken to IR for embolization.
[2024-02-04 19:48] LABS: Venous Blood Gas Refer to POC result
[2024-02-04 19:49] LABS: VBG Base Excess -2.2 mmol/L; VBG HCO3 22 mmol/L (22-26); VBG pCO2 36 mmHg; VBG pH 7.38 (7.32-7.43); VBG pO2 177 mmHg
[2024-02-04] MEDS: dilTIAZem HCL 50 MG/10 ML VIAL 10 MG IVPUSH (19:49)
[2024-02-04 20:02] LABS: INTERNATIONAL NORM RATIO 1.4 (0.9-1.1); Prothrombin Time 16.6 SEC (11.1-13.3)
[2024-02-04 20:05] LABS: Alanine Aminotransferase 15 U/L (0-40); Albumin Level 2.8 g/dL (3.5-5.0); Alkaline Phosphatase 48 U/L (39-117); Anion Gap 10 (12-20); Aspartate Amino Transferase 24 U/L (5-37); Bilirubin Total 2.2 mg/dL (0.0-1.0); Blood Urea Nitrogen 32 mg/dL (9-16); Calcium 6.9 mg/dL (8.4-10.2); Carbon Dioxide 23 mmol/L (22-29); Chloride 105 mmol/L (96-108); Creatinine Clr Calc Pharmacy 66.3; Estimated Glomerular Filt Rate > 60; Glucose Random 242 mg/dL (60-115); Magnesium 1.8 mg/dL (1.6-2.6); Phosphorus 4.2 mg/dL (2.7-4.5); Potassium 4.3 mmol/L (3.3-5.1); Sodium 134 mmol/L (135-145); Total Protein 4.5 g/dL (6.5-8.0)
[2024-02-04 20:06] LABS: Hematocrit 25.7 % (42.0-52.0); Hemoglobin 9.4 g/dl (14.0-18.0); Mean Corpuscular HGB Conc 36.6 g/dl (31.0-36.0); Mean Corpuscular Hemoglobin 32.5 pg (27.0-33.0); Mean Corpuscular Volume 88.9 fL (80.0-98.0); Mean Platelet Volume 9.9 fL (9.4-12.4); NRBC Pct Auto 0.3 /100WBC (0.0-0.2); Platelet Count 170 X10*3/uL (160-400); Red Blood Count 2.89 X10*6/uL (4.60-5.80); Red Cell Distribution Width 14.7 % (11.0-16.0); White Blood Count 12.8 X10*3/uL (4.8-10.8)
[2024-02-04] MEDS: Calcium Gluconate/NaCl,Iso-Osm 2 GM/100 ML PLAST..BAG IV (20:18)
[2024-02-04 20:36] LABS: SLIDE REVIEW MANUAL DIFF
[2024-02-04 20:37] LABS: Acanthocytes 1+ (0-2) /OIF; Burr Cells 2+ (3-5) /OIF; Lymphocytes Absolute Manual 0.9 X10*3/uL (1.2-4.9); Lymphocytes Percent Manual 7 % (20-40); Monocytes Absolute Manual 0.3 X10*3/uL (0.1-1.2); Monocytes Percent Manual 2 % (2-11); Neutrophils Percent Manual 91 % (45-73); Platelet Estimate NORMAL (NORMAL); Platelet Morphology Comment NORMAL; RBC Morphology NOTED
[2024-02-04] MEDS: Linezolid/D5W 600 MG/300 ML PIGGYBACK 300 MG IV (20:38)
[2024-02-04 20:42] LABS: Band Neutrophils Percent 0 % (3-5); Neutrophils Absolute Manual 11.6 X10*3/uL (2.0-8.3)
[2024-02-04] MEDS: 0.9 % Sodium Chloride Flush 3 ML SYRINGE IVFLUSH (23:29)
[2024-02-04] MEDS: fentaNYL citrate/NS 1,000 MCG/100 ML PLAST..BAG 7.5 MCG IVCONT (23:39)
[2024-02-05] VITALS (56 sets, daily range): BP systolic 86–152; BP diastolic 42–73; PULSE 45–63; RESP 19–22; TEMP 31.6–37.1; O2SAT 92–100; BMI 29.0
[2024-02-05 00:14] LABS: Hemoglobin 6.8 g/dl (14.0-18.0)
[2024-02-05 00:15] LABS: Hematocrit 18.5 % (42.0-52.0)
--- NOTE | 2024-02-05 02:06 | HO.SKINPHOTO ---
Addendum entered by Juan Antonio Aggarwal RN 02/05/24 04:29: Both arm skin tears are located on the right arm, not the left. Original Note: Location: Right great toe Present on admission Location: Left forearm Category: Skin tear Present on admission Location: Left medial elbow Category: Skin tear Present on admission
--- NOTE | 2024-02-05 02:51 | PC.NURSE ---
Addendum entered by Juan Antonio Aggarwal RN 02/05/24 06:27: At approx 0615: MAP goal 60-65 per NAOMI Betts, levophed titrated per JUL. PA updated re: continual bleeding with clots from rectum. New order for TXA 1000 mg IVBP x1, administered as ordered. Original Note: Approx 193: Patient returned from IR s/p embolization. Upon initial assessment, patient intubated and sedated with fentanyl gtt, versed gtt, and propofol gtt, RASS -4 (see JUL). Levophed running at 0.2mcg/kg/min on arrival, titrated per JUL. SR on tele, HR 60s-70s. A-line to left groin in place and running with KVO from IR. Switched to pressure tubing and waveform appropriate on monitor. Protamine sulfate 40mg IVP ordered by NAOMI Betts and administered per JUL. Approx 1950: patient went into SVT up to 180s, with arterial BP low of 48/36. Cardizem 10mg IVP ordered and administered per JUL. Patient had several runs of nonsustained monomorphic Vtach, eventually converted to SB on tele, HR 50s-60s. STAT labs drawn. Calcium gluconate 2g IV administered, see JUL. 2 bags albumin administered per JUL. Propofol gtt paused per NAOMI Betts due to hemodynamic instability. ETT #7.5, 22 cm @ lip. Respiratory advanced ETT to original 24cm @ lip without incident. On ACVC settings, 20/400/5.0/30%, somewhat asynchronous with the vent with breath stacking. Scant in-line blood tinged secretions. OGT in place and clamped. Temp sensing rai in place, draining clear yellow urine. Tmin 95.4, she hugger applied. Patient skin largely noemi with diffuse bruising and abrasions (see skin note), multiple skin tears to left arm. Xeroform applied and wrapped with kerlix. Approx 2100: Multiple family members to bedside and updated by this RN, explaining patient status/plan of care. Educated regarding airborne precautions and visitation limitations. Approx 2345: Patient turned for bed bath, BM with large amount of dark red blood and clots. NAOMI Betts notified, repeat H&H collected. Results 6.8 and 18.5, NAOMI Betts notified and 2 units RBCs ordered (see TAR), both infused without s/s of transfusion reaction. Currently sedated on fentanyl gtt and versed gtt, see MAR. SB on tele, HR 50s, SBP> 100 MAP >60 per a-line. Synchronous with the vent, same vent settings. OGT clamped, urine output 70-100mL/hr clear yellow. No acute skin changes. Unable to reposition Q2HR due to hemodynamic instability with repositioning, turning bed utilized. Bed locked in lowest possible position, bed alarm on, airborne precautions in place.
[2024-02-05] MEDS: Piperacillin Sodium/Tazobactam 4.5 GM in 0.9 % Sodium Chloride 100 ML IV ×3 (04:00→20:12)
[2024-02-05] MEDS: methylPREDNISolone Sod Succ 125 MG/2 ML VIAL 60 MG IVPUSH ×3 (04:00→20:12)
[2024-02-05] MEDS: Midazolam HCl/NS 50 MG/50 ML PLAST..BAG IVCONT (04:44)
[2024-02-05 05:47] LABS: MANUAL DIFF FLAG NO
[2024-02-05 05:48] LABS: Basophils Percent Auto 0.1 % (0-2); Hematocrit 24.4 % (42.0-52.0); Hemoglobin 8.7 g/dl (14.0-18.0); Imm Gran Pct Auto 3.3 % (0.0-0.4); Mean Corpuscular HGB Conc 35.7 g/dl (31.0-36.0); Mean Corpuscular Hemoglobin 31.8 pg (27.0-33.0); Mean Corpuscular Volume 89.1 fL (80.0-98.0); Mean Platelet Volume 10.2 fL (9.4-12.4); Monocytes Absolute Auto 0.2 X10*3/uL (0.1-1.2); Monocytes Percent Auto 2.2 % (2-11); NRBC Pct Auto 0.8 /100WBC (0.0-0.2); Neutrophils Absolute Auto 7.6 x10*3/uL (2.0-8.3); Neutrophils Percent Auto 83.4 % (45-73); Red Blood Count 2.74 X10*6/uL (4.60-5.80); Red Cell Distribution Width 14.6 % (11.0-16.0); White Blood Count 9.1 X10*3/uL (4.8-10.8)
[2024-02-05 06:04] LABS: Alanine Aminotransferase 11 U/L (0-40); Albumin Level 3.1 g/dL (3.5-5.0); Alkaline Phosphatase 27 U/L (39-117); Anion Gap 10 (12-20); Aspartate Amino Transferase 16 U/L (5-37); Blood Urea Nitrogen 27 mg/dL (9-16); Calcium 7.5 mg/dL (8.4-10.2); Carbon Dioxide 24 mmol/L (22-29); Chloride 107 mmol/L (96-108); Estimated Glomerular Filt Rate > 60; Glucose Random 172 mg/dL (60-115); Magnesium 1.8 mg/dL (1.6-2.6); Phosphorus 3.5 mg/dL (2.7-4.5); Potassium 4.2 mmol/L (3.3-5.1); Sodium 137 mmol/L (135-145); Total Protein 4.4 g/dL (6.5-8.0)
[2024-02-05 06:09] LABS: ABG Base Excess -0.2 mmol/L; ABG HCO3 24 mmol/L (22-26); ABG pCO2 36 mmHg (32-45); ABG pH 7.42 (7.35-7.45); ABG pO2 97 mmHg (83-108)
[2024-02-05 06:12] LABS: Platelet Count 92 X10*3/uL (160-400)
[2024-02-05] MEDS: Albumin Human 25 % 100 ML IV ×2 (06:26→07:29)
[2024-02-05] MEDS: Tranexamic Acid 1,000 MG in 0.9 % Sodium Chloride 250 ML 32.5 MG IV (06:26)
[2024-02-05 07:11] LABS: ABG Refer to POC result
[2024-02-05] MEDS: Chlorhexidine Gluc Oral Rinse 15 ML MOUTHWASH BUCCAL ×3 (07:29→20:12)
[2024-02-05] MEDS: Atorvastatin Calcium 40 MG TABLET PO (08:24)
[2024-02-05] MEDS: Linezolid/D5W 600 MG/300 ML PIGGYBACK 300 MG IV ×2 (08:24→20:13)
[2024-02-05] MEDS: allopurinoL 100 MG TABLET 200 MG PO (08:24)
[2024-02-05] MEDS: 0.9 % Sodium Chloride Flush 3 ML SYRINGE IVFLUSH ×2 (08:25→23:14)
--- NOTE | 2024-02-05 08:52 | PM.CCPN ---
Subjective Subjective Date of Service: 02/05/24 Critical Care Time (minutes): 40 Comment: Had large amount of norma blood per rectum yesterday in the afternoon needing multiple units of blood transfusion and emergent embolization of the inferior mesenteric artery at the level of descending colon. Overnight patient had a couple of small bleeding episodes and received 1 more unit of PRBC transfusion Remains on ventilator support this morning On Levophed for vasopressor support Cultures remain negative so far CTA negative for PE Physical Exam Vital Signs: Vital Signs: Last Vital Signs Temp 97.9 F 02/05/24 08:00 Pulse 54 02/05/24 08:50 Resp 20 02/05/24 08:00 BP 126/61 02/05/24 08:50 Pulse Ox 98 02/05/24 08:00 O2 Del Method Mechanical Ventil ation 02/05/24 08:00 O2 Flow Rate 30 02/05/24 08:00 FiO2 30 02/05/24 07:41 BMI result Body Mass Index 29.0 General: Patient is in acute distress, ill appearing and tired appearing Nutritional Appearance: well nourished and normal weight Eyes: appearance normal, both eyes and all related structures; Alignment and Position: alignment normal and position normal Neck: No lymphadenopathy, no thyromegaly Resp: bilateral air entry equal, o bilateral crackles heard Cardio: Regular rate, regular rhythm; Heart sounds: S1 normal heart sound present and S2 normal heart sound present GI: soft, nontender, no guarding, no hepatosplenomegaly : bladder normal to inspection, bladder normal to palpation, no renal angle tenderness Skin: skin wounds seen in both legs below-knee Neuro: Sedated, no focal deficits Objective Data Labs 02/05/24 05:32 02/05/24 05:32 Labs: Laboratory Results - last 24 hr 02/04/24 02/04/24 02/04/24 09:28 09:36 10:35 WBC 25.7 H RBC 3.45 L Hgb 11.9 L Hct 33.6 L MCV 97.4 MCH 34.5 H MCHC 35.4 RDW 15.8 Plt Count 305 MPV 9.7 Immature Gran % (Auto) Cancelled Neut % (Auto) Cancelled Lymph % (Auto) Cancelled [place] % (Auto) Cancelled Eos % (Auto) Cancelled Baso % (Auto) Cancelled Lymph # (Auto) Cancelled [place] # (Auto) Cancelled Eos # (Auto) Cancelled Baso # (Auto) Cancelled Abs Immat Gran (auto) Cancelled Absolute Neuts (auto) Cancelled Absolute Nucleated RBC 0.070 H Nucleated RBC % (auto) 0.3 H Neutrophils % (Manual) 75 H Band Neutrophils % 17 H Lymphocytes % (Manual) 3 L Atypical Lymphs % (Man) 2 Monocytes % (Manual) 1 L Metamyelocytes % 2 Abs Neuts (Manual) 23.6 H Lymphocytes # (Manual) 0.8 L Atyp Lymphs # (Manual) 0.5 Monocytes # (Manual) 0.3 Metamyelocytes # 0.5 Toxic Vacuolation PRESENT Platelet Estimate NORMAL Plt Morphology Comment NORMAL RBC Morphology NOTED Polychromasia 1+ (0-2) Macrocytosis 1+ (5-14) Pappenheimer Bodies PRESENT Edi Cells Acanthocytes (Spur) 2+ (3-5) Smear Tech's Comments PT INR D-Dimer High Sensitivty O2 Saturation 93.0 ABG pH at Pt Temp 7.26 L ABG pCO2 at Pt Temp 27 L ABG pO2 at Pt Temp 85 ABG HCO3 12 L ABG Base Excess (Actual) -13.0 VBG pH VBG pCO2 VBG pO2 VBG HCO3 VBG O2 Saturation VBG Base Excess Sodium 131 L Potassium 4.1 Chloride 93 L Carbon Dioxide 20 L Anion Gap 22 H BUN 42 H Creatinine 1.64 H Estim Creat Clear Calc 38.8 Estimated GFR 41 POC Glucose 139 H Random Glucose 212 H Lactic Acid 9.0 H* Lactic Acid F/U @ 2Hr Lactic Acid F/U @ 4Hr Calcium 8.9 Phosphorus 6.8 H Magnesium Total Bilirubin 2.0 H AST 35 ALT 26 Alkaline Phosphatase 86 Troponin I High Sens 20.9 B-Natriuretic Peptide 75 Total Protein 7.1 Albumin 3.1 L Urine Color Urine Appearance Urine pH Ur Specific [place] Urine Protein Urine Glucose (UA) Urine Ketones Urine Blood Urine Nitrite Ur Leukocyte Esterase Urine RBC Urine WBC Ur Squamous Epith Cells Urine Bacteria Hyaline Casts Nasal Screen MRSA (PCR) Nasal S. aureus Screen Nasal MRSA/S.aureus Interp Respiratory Panel Jonse Adenovirus (Rapid PCR) B.pert (TEM-PCR) B.parapertussis DNA PCR C. pneumoniae DNA (PCR) Coronavirus OC43 (PCR) Coronavirus HKU1 (PCR) Coronavirus 229E (PCR) Coronavirus NL63 (PCR) Human Metapneumovir PCR Influenza A (RT-PCR) Influenza Type A (PCR) Influenza B (RT-PCR) Influenza Type B (PCR) M. pneumoniae (PCR) Parainfluenza 1 (PCR) Parainfluenza 2 (PCR) Parainfluenza 3 (PCR) Parainfluenza 4 (PCR) RSV (PCR) RSV RNA Qual (PCR) Entero/Rhino (PCR) SARS-CoV-2 RNA (RT-PCR) Blood Type Antibody Screen Crossmatch 02/04/24 02/04/24 02/04/24 11:06 11:06 12:55 WBC RBC Hgb Hct MCV MCH MCHC RDW Plt Count MPV Immature Gran % (Auto) Neut % (Auto) Lymph % (Auto) [place] % (Auto) Eos % (Auto) Baso % (Auto) Lymph # (Auto) [place] # (Auto) Eos # (Auto) Baso # (Auto) Abs Immat Gran (auto) Absolute Neuts (auto) Absolute Nucleated RBC Nucleated RBC % (auto) Neutrophils % (Manual) Band Neutrophils % Lymphocytes % (Manual) Atypical Lymphs % (Man) Monocytes % (Manual) Metamyelocytes % Abs Neuts (Manual) Lymphocytes # (Manual) Atyp Lymphs # (Manual) Monocytes # (Manual) Metamyelocytes # Toxic Vacuolation Platelet Estimate Plt Morphology Comment RBC Morphology Polychromasia Macrocytosis Pappenheimer Bodies [place] Cells Acanthocytes (Spur) Smear Tech's Comments PT INR D-Dimer High Sensitivty O2 Saturation ABG pH at Pt Temp ABG pCO2 at Pt Temp ABG pO2 at Pt Temp ABG HCO3 ABG Base Excess (Actual) VBG pH VBG pCO2 VBG pO2 VBG HCO3 VBG O2 Saturation VBG Base Excess Sodium Potassium Chloride Carbon Dioxide Anion Gap BUN Creatinine Estim Creat Clear Calc Estimated GFR POC Glucose Random Glucose Lactic Acid Lactic Acid F/U @ 2Hr 3.7 H* Lactic Acid F/U @ 4Hr Calcium Phosphorus Magnesium Total Bilirubin AST ALT Alkaline Phosphatase Troponin I High Sens B-Natriuretic Peptide Total Protein Albumin Urine Color Dark Yellow Urine Appearance Clear Urine pH 5.5 Ur Specific [place] 1.025 Urine Protein 30 (1+) H Urine Glucose (UA) Negative Urine Ketones Negative Urine Blood Negative Urine Nitrite Negative Ur Leukocyte Esterase Trace H Urine RBC 0-2 Urine WBC 0-5 Ur Squamous Epith Cells 0-2 Urine Bacteria None Seen Hyaline Casts 0-2 Nasal Screen MRSA (PCR) NEGATIVE Nasal S. aureus Screen POSITIVE A Nasal MRSA/S.aureus Interp SEE NOTE Respiratory Panel Jones See Note Adenovirus (Rapid PCR) Not Detected B.pert (TEM-PCR) Not Detected B.parapertussis DNA PCR Not Detected C. pneumoniae DNA (PCR) Not Detected Coronavirus OC43 (PCR) Not Detected Coronavirus HKU1 (PCR) Not Detected Coronavirus 229E (PCR) Not Detected Coronavirus NL63 (PCR) Not Detected Human Metapneumovir PCR Not Detected Influenza A (RT-PCR) Not Detected Influenza Type A (PCR) NEGATIVE Influenza B (RT-PCR) Not Detected Influenza Type B (PCR) NEGATIVE M. pneumoniae (PCR) Not Detected Parainfluenza 1 (PCR) Not Detected Parainfluenza 2 (PCR) Not Detected Parainfluenza 3 (PCR) Not Detected Parainfluenza 4 (PCR) Not Detected RSV (PCR) Not Detected RSV RNA Qual (PCR) NEGATIVE Entero/Rhino (PCR) Not Detected SARS-CoV-2 RNA (RT-PCR) Detected A POSITIVE A Blood Type Antibody Screen Crossmatch 02/04/24 02/04/24 02/04/24 15:25 19:23 19:38 WBC 18.4 H 12.8 H RBC 2.05 L D 2.89 L D Hgb 7.0 L* D 9.4 L D Hct 19.6 L* D 25.7 L D MCV 95.6 88.9 D MCH 34.1 H 32.5 MCHC 35.7 36.6 H RDW 15.6 14.7 Plt Count 242 170 D MPV 9.6 9.9 Immature Gran % (Auto) Cancelled Neut % (Auto) Cancelled Lymph % (Auto) Cancelled [place] % (Auto) Cancelled Eos % (Auto) Cancelled Baso % (Auto) Cancelled Lymph # (Auto) Cancelled [place] # (Auto) Cancelled Eos # (Auto) Cancelled Baso # (Auto) Cancelled Abs Immat Gran (auto) Cancelled Absolute Neuts (auto) Cancelled Absolute Nucleated RBC 0.080 H 0.040 H Nucleated RBC % (auto) 0.4 H 0.3 H Neutrophils % (Manual) 91 H Band Neutrophils % 0 L Lymphocytes % (Manual) 7 L Atypical Lymphs % (Man) Monocytes % (Manual) 2 Metamyelocytes % Abs Neuts (Manual) 11.6 H Lymphocytes # (Manual) 0.9 L Atyp Lymphs # (Manual) Monocytes # (Manual) 0.3 Metamyelocytes # Toxic Vacuolation Platelet Estimate NORMAL Plt Morphology Comment NORMAL RBC Morphology NOTED Polychromasia Macrocytosis Pappenheimer Bodies Edi Cells 2+ (3-5) Acanthocytes (Spur) 1+ (0-2) Smear Tech's Comments MANUAL DIFF PT 16.6 H INR 1.4 H D-Dimer High Sensitivty 3187 O2 Saturation ABG pH at Pt Temp ABG pCO2 at Pt Temp ABG pO2 at Pt Temp ABG HCO3 ABG Base Excess (Actual) VBG pH VBG pCO2 VBG pO2 VBG HCO3 VBG O2 Saturation VBG Base Excess Sodium 133 L 134 L Potassium 4.0 4.3 Chloride 101 105 Carbon Dioxide 23 23 Anion Gap 13 10 L BUN 33 H 32 H Creatinine 1.14 0.96 Estim Creat Clear Calc 55.8 66.3 Estimated GFR > 60 > 60 POC Glucose Random Glucose 154 H 242 H Lactic Acid 1.0 Lactic Acid F/U @ 2Hr Lactic Acid F/U @ 4Hr 1.8 Calcium 7.6 L D 6.9 L D Phosphorus 4.2 Magnesium 1.8 Total Bilirubin 2.2 H AST 24 ALT 15 Alkaline Phosphatase 48 Troponin I High Sens B-Natriuretic Peptide Total Protein 4.5 L Albumin 2.8 L Urine Color Urine Appearance Urine pH Ur Specific [place] Urine Protein Urine Glucose (UA) Urine Ketones Urine Blood Urine Nitrite Ur Leukocyte Esterase Urine RBC Urine WBC Ur Squamous Epith Cells Urine Bacteria Hyaline Casts Nasal Screen MRSA (PCR) Nasal S. aureus Screen Nasal MRSA/S.aureus Interp Respiratory Panel Jones Adenovirus (Rapid PCR) B.pert (TEM-PCR) B.parapertussis DNA PCR C. pneumoniae DNA (PCR) Coronavirus OC43 (PCR) Coronavirus HKU1 (PCR) Coronavirus 229E (PCR) Coronavirus NL63 (PCR) Human Metapneumovir PCR Influenza A (RT-PCR) Influenza Type A (PCR) Influenza B (RT-PCR) Influenza Type B (PCR) M. pneumoniae (PCR) Parainfluenza 1 (PCR) Parainfluenza 2 (PCR) Parainfluenza 3 (PCR) Parainfluenza 4 (PCR) RSV (PCR) RSV RNA Qual (PCR) Entero/Rhino (PCR) SARS-CoV-2 RNA (RT-PCR) Blood Type O Positive Antibody Screen NEGATIVE Crossmatch See Detail 02/04/24 02/05/24 02/05/24 19:45 00:02 05:32 WBC 9.1 RBC 2.74 L Hgb 6.8 L* D 8.7 L D Hct 18.5 L* D 24.4 L D MCV 89.1 MCH 31.8 MCHC 35.7 RDW 14.6 Plt Count 92 L D MPV 10.2 Immature Gran % (Auto) 3.3 H Neut % (Auto) 83.4 H Lymph % (Auto) 11.0 L [place] % (Auto) 2.2 Eos % (Auto) 0.0 Baso % (Auto) 0.1 Lymph # (Auto) 1.0 L [place] # (Auto) 0.2 Eos # (Auto) 0.0 Baso # (Auto) 0.0 Abs Immat Gran (auto) 0.30 H Absolute Neuts (auto) 7.6 Absolute Nucleated RBC 0.070 H Nucleated RBC % (auto) 0.8 H Neutrophils % (Manual) Band Neutrophils % Lymphocytes % (Manual) Atypical Lymphs % (Man) Monocytes % (Manual) Metamyelocytes % Abs Neuts (Manual) Lymphocytes # (Manual) Atyp Lymphs # (Manual) Monocytes # (Manual) Metamyelocytes # Toxic Vacuolation Platelet Estimate Plt Morphology Comment RBC Morphology Polychromasia Macrocytosis Pappenheimer Bodies [place] Cells Acanthocytes (Spur) Smear Tech's Comments PT INR D-Dimer High Sensitivty O2 Saturation ABG pH at Pt Temp ABG pCO2 at Pt Temp ABG pO2 at Pt Temp ABG HCO3 ABG Base Excess (Actual) VBG pH 7.38 VBG pCO2 36 VBG pO2 177 VBG HCO3 22 VBG O2 Saturation 100.0 VBG Base Excess -2.2 Sodium 137 Potassium 4.2 Chloride 107 Carbon Dioxide 24 Anion Gap 10 L BUN 27 H Creatinine 0.95 Estim Creat Clear Calc 67.0 Estimated GFR > 60 POC Glucose Random Glucose 172 H Lactic Acid Lactic Acid F/U @ 2Hr Lactic Acid F/U @ 4Hr Calcium 7.5 L D Phosphorus 3.5 Magnesium 1.8 Total Bilirubin 2.0 H AST 16 ALT 11 Alkaline Phosphatase 27 L Troponin I High Sens B-Natriuretic Peptide Total Protein 4.4 L Albumin 3.1 L Urine Color Urine Appearance Urine pH Ur Specific [place] Urine Protein Urine Glucose (UA) Urine Ketones Urine Blood Urine Nitrite Ur Leukocyte Esterase Urine RBC Urine WBC Ur Squamous Epith Cells Urine Bacteria Hyaline Casts Nasal Screen MRSA (PCR) Nasal S. aureus Screen Nasal MRSA/S.aureus Interp Respiratory Panel Jones Adenovirus (Rapid PCR) B.pert (TEM-PCR) B.parapertussis DNA PCR C. pneumoniae DNA (PCR) Coronavirus OC43 (PCR) Coronavirus HKU1 (PCR) Coronavirus 229E (PCR) Coronavirus NL63 (PCR) Human Metapneumovir PCR Influenza A (RT-PCR) Influenza Type A (PCR) Influenza B (RT-PCR) Influenza Type B (PCR) M. pneumoniae (PCR) Parainfluenza 1 (PCR) Parainfluenza 2 (PCR) Parainfluenza 3 (PCR) Parainfluenza 4 (PCR) RSV (PCR) RSV RNA Qual (PCR) Entero/Rhino (PCR) SARS-CoV-2 RNA (RT-PCR) Blood Type Antibody Screen Crossmatch 02/05/24 05:58 WBC RBC Hgb Hct MCV MCH MCHC RDW Plt Count MPV Immature Gran % (Auto) Neut % (Auto) Lymph % (Auto) [place] % (Auto) Eos % (Auto) Baso % (Auto) Lymph # (Auto) [place] # (Auto) Eos # (Auto) Baso # (Auto) Abs Immat Gran (auto) Absolute Neuts (auto) Absolute Nucleated RBC Nucleated RBC % (auto) Neutrophils % (Manual) Band Neutrophils % Lymphocytes % (Manual) Atypical Lymphs % (Man) Monocytes % (Manual) Metamyelocytes % Abs Neuts (Manual) Lymphocytes # (Manual) Atyp Lymphs # (Manual) Monocytes # (Manual) Metamyelocytes # Toxic Vacuolation Platelet Estimate Plt Morphology Comment RBC Morphology Polychromasia Macrocytosis Pappenheimer Bodies Edi Cells Acanthocytes (Spur) Smear Tech's Comments PT INR D-Dimer High Sensitivty O2 Saturation 99.0 ABG pH at Pt Temp 7.42 ABG pCO2 at Pt Temp 36 ABG pO2 at Pt Temp 97 ABG HCO3 24 ABG Base Excess (Actual) -0.2 VBG pH VBG pCO2 VBG pO2 VBG HCO3 VBG O2 Saturation VBG Base Excess Sodium Potassium Chloride Carbon Dioxide Anion Gap BUN Creatinine Estim Creat Clear Calc Estimated GFR POC Glucose Random Glucose Lactic Acid Lactic Acid F/U @ 2Hr Lactic Acid F/U @ 4Hr Calcium Phosphorus Magnesium Total Bilirubin AST ALT Alkaline Phosphatase Troponin I High Sens B-Natriuretic Peptide Total Protein Albumin Urine Color Urine Appearance Urine pH Ur Specific [place] Urine Protein Urine Glucose (UA) Urine Ketones Urine Blood Urine Nitrite Ur Leukocyte Esterase Urine RBC Urine WBC Ur Squamous Epith Cells Urine Bacteria Hyaline Casts Nasal Screen MRSA (PCR) Nasal S. aureus Screen Nasal MRSA/S.aureus Interp Respiratory Panel [place] Adenovirus (Rapid PCR) B.pert (TEM-PCR) B.parapertussis DNA PCR C. pneumoniae DNA (PCR) Coronavirus OC43 (PCR) Coronavirus HKU1 (PCR) Coronavirus 229E (PCR) Coronavirus NL63 (PCR) Human Metapneumovir PCR Influenza A (RT-PCR) Influenza Type A (PCR) Influenza B (RT-PCR) Influenza Type B (PCR) M. 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 SVT: treated with cardizem, currently rate controlled Respiratory: Acute on chronic hypoxemic respiratory failure due to progression of interstitial lung disease Intubated and placed on ventilator support On PRVC mode FiO2 down to 30 %, PEEP 5, TV 400, RR 20 Peak pressures and plateau pressures are under the curve Ventilator management bundle with head end elevation, aspiration precaution, chlorhexidine mouthwash, daily awakening trials, daily spontaneous breathing trials Once the sedation is well titrated down we will place the patient on pressor support for weaning trials GI: Lower GI bleed: Possibly secondary to a diverticular bleed Status post IR guided embolization of the inferior mesenteric artery at lower descending colon at the junction of sigmoid colon We will closely monitor for any further bleeding episodes Renal: We will closely monitor I's and O's Avoid nephrotoxic medications Heme: Acute blood loss anemia: Secondary to lower GI bleed Received multiple units of PRBC transfusion yesterday, additional 2 units overnight Lovenox reversed with protamine sulfate Endocrine: Blood sugars under control Sliding scale insulin as needed Infectious disease: Pancultures pending Continue Zyvox and cefepime for skin infections and lower left leg cellulitis MRSA nares positive Musculoskeletal: Decubitus ulcer prevention protocol Lines: Right femoral central line right femoral arterial sheath Prophylaxis: pantoprazole, SCD Critical care spent time spent is about 40 minutes managing this critically ill patient with multiple organ failures, time is mostly spent on ventilator management, changing ventilator settings, weaning trials, sedation management, close hemodynamic monitoring, managing patient's lower GI bleed. Quality Stroke Does the patient have a stroke diagnosis?: No VTE Prior VTE?: No VTE Risk Level:: Medical - low VTE Device Contraindication: N/A - Device Ordered VTE Drug Contraindication: N/A - Med Ordered
--- NOTE | 2024-02-05 10:03 | PC.NURSE ---
At approximately 0930 on 02/04/24, i was requested to pull Fentanyl premixed IV piggyback 10,000mcg per 100cc from [facility] as an override. Verbal order given by Dr. Hazel and not entered into [facility] at this time. Fentanyl medication over ride performed with Linda Heller. Fentanyl bag personally handed to primary nurse Yumiko Carlos who proceeded with the administration and hanging per verbal order. Primary RN responsible for charting administration details of medications in [facility]. She is aware of task needed to be done.
[2024-02-05] MEDS: dexmedeTOMIDidine HCL/NS 400 MCG/100 ML INFUS..BTL 21.63 MCG IVCONT (10:54)
--- NOTE | 2024-02-05 10:56 | MHC.CLN ---
PT REQUIRES NUTRITION SUPPORT VIA TF R/T PROLONGED NPO STATUS RECOMMEND TF AT MAX GOAL RATE JEVITY 1.0 AT 70ML/HR WITH 240ML FREE WATER Q 8 HRS TO PROVIDE 1781KCALS (23KCALS/KG), 74G PROTEIN (.97G/KG), 2123ML TOTAL WATER FROM FORMULA AND FLUSH (28ML/KG) MONITOR TOLERANCE AND LYTES SEE ALSO FULL CLINICAL NUTRITION ASSESSMENT
--- NOTE | 2024-02-05 11:47 | P.CNGI_ITS ---
History of Present Illness Data of Consult Service Date: 02/05/24 Primary Care Provider: NAOMI Castellanos HPI Reason for consult: GI bleed 73 yr old m with pulm fibrosis on oxygen, HTN, rheumatoid arthritis who I am seeing for eval for GI bleeding No hx from pt as he is intubated Patient initially came in after a fall, and was found to be hypoxic and tachypneic with hypotension requiring Intubation and pressor support. He had significant rectal bleeding and had embolization of the inferior mesenteric artery with contrast extravasation noted in the left colon. He seemed to be stable but then today he had further bleeding and has been receiving blood products. He is also covid pos this admission and also had been on and off nintedanib which can be associated with high risk of GI bleeding. Per daughter at bedside he has had colonoscopy in past which has been normal. Review of Systems 2 Review of Systems: Yes unobtainable due to endotracheal tube PMFSH Social History Social History (Updated 09/26/23 @ 10:12 by Leatha aMrin Coco) Household Members: Family Housing: House Do you presently have visiting nurse or other home services: No Patient Tobacco Use Status: Tobacco use Unknown Years Smoked: quit 30+ years ago Advance Directives Date on File: 02/04/24 Meds Allergies Allergy/AdvReac Type Severity Reaction Status Date / Time No Known Allergies Allergy Verified 02/04/24 09:41 Active Medications: Current Medications Allopurinol (Allopurinol 100 Mg Tablet) 200 mg PO DAILY [facility] Last Admin: 02/05/24 08:24 Dose: 200 mg Atorvastatin Calcium (Atorvastatin Calcium 40 Mg Tablet) 40 mg PO DAILY [facility] Last Admin: 02/05/24 08:24 Dose: 40 mg Chlorhexidine Gluconate (Chlorhexidine Gluc Oral Rinse 15 Ml Mouthwash) 15 ml BUCCAL TID [facility] Last Admin: 02/05/24 07:29 Dose: 15 ml Norepinephrine Bitartrate (Levophed) 8 mg in 250 mls @ 0 mls/hr IV .Q0M [facility]; Protocol Last Titration: 02/05/24 10:20 Dose: 0 mcg/kg/min, 0 mls/hr Piperacillin Sod/Tazobactam (Sod 4.5 gm/ Sodium Chloride) 100 mls @ 200 mls/hr IV Q8H [facility] Last Admin: 02/05/24 11:35 Dose: 200 mls/hr Midazolam HCl (Versed) 50 mg in 50 mls @ 4 mls/hr IVCONT .[id number] [facility] Last Infusion: 02/05/24 06:31 Dose: 4 mg/hr, 4 mls/hr Propofol (Diprivan) 1,000 mg in 100 mls @ 0 mls/hr IVCONT .Q5H59M [facility]; Protocol Last Titration: 02/04/24 22:23 Dose: Infused Linezolid (Zyvox/D5w) 600 mg in 300 mls @ 300 mls/hr IV Q12H [facility] Last Infusion: 02/05/24 10:20 Dose: Infused Tranexamic Acid 1,000 mg/ (Sodium Chloride) 260 mls @ 32.5 mls/hr IV .Q8H ONE Stop: 02/05/24 14:03 Last Admin: 02/05/24 06:26 Dose: 32.5 mls/hr Dexmedetomidine HCl (Precedex) 400 mcg in 100 mls @ 0 mls/hr IVCONT .Q0M [facility]; Protocol Last Admin: 02/05/24 10:54 Dose: 1 mcg/kg/hr, 21.63 mls/hr Methylprednisolone Sodium Succinate (Methylprednisolone Sod Succ 125 Mg/2 Ml Vial) 60 mg IVPUSH Q8H [facility] Last Admin: 02/05/24 10:53 Dose: 60 mg Naloxone HCl (Naloxone Hcl 0.4 Mg/Ml Vial) 0.2 mg IVPUSH Q2M PRN PRN Reason: Excessive sedation or RR < 8 Sodium Chloride (0.9 % Sodium Chloride Flush 3 Ml Syringe) 3 ml IVFLUSH QSHIFT [facility] Last Admin: 02/05/24 08:25 Dose: 3 ml Home Medications ?Medication ?Instructions ?Recorded ?Confirmed ?Last Taken ?Type allopurinol 100 mg tablet 200 mg PO DAILY 11/18/20 02/04/24 02/03/24 History amlodipine 10 mg tablet 10 mg PO DAILY 11/18/20 02/04/24 02/03/24 History atorvastatin 40 mg tablet 40 mg PO DAILY 11/18/20 02/04/24 02/03/24 History benazepril 10 1 tab PO DAILY 11/18/20 02/04/24 02/03/24 History mg-hydrochlorothiazide 12.5 mg tablet calcium carbonate 500 mg PO DAILY 02/04/24 02/04/24 02/03/24 History cholecalciferol (vitamin D3) 50 50 mcg PO DAILY 02/04/24 02/04/24 02/03/24 History mcg (2,000 unit) tablet (Vitamin D3) doxycycline monohydrate 100 mg 100 mg PO BIDWM 02/04/24 02/04/24 02/03/24 History capsule prednisone 10 mg tablet See Taper PO DAILY 02/04/24 02/04/24 02/03/24 History Physical Exam 2 Vital Signs: Vital Signs: Last Vital Signs Temp 97.0 F 02/05/24 11:00 Pulse 51 02/05/24 11:00 Resp 20 02/05/24 11:00 BP 119/57 L 02/05/24 11:00 Pulse Ox 99 02/05/24 11:00 O2 Del Method Mechanical Ventil ation 02/05/24 11:00 O2 Flow Rate 35 02/04/24 15:00 FiO2 30 02/05/24 11:00 BMI result Body Mass Index 29.0 EXAM: GENERAL: The patient is intubated VITAL SIGNS:see workflow HEENT: Nonicteric sclerae, PERRLA, EOMI. Oropharynx clear. Moist mucous membranes. Conjunctivae appear pale. No thyroid mass. CHEST: Chest wall is nontender. HEART: Regular rate and rhythm without murmurs. LUNGS: on vent, normal chest movement ABDOMEN: Soft, positive bowel sounds, nontender, no organomegaly.no flank tenderness SKIN: No rash, no excessive bruising, petechiae, or purpura. NEUROLOGIC: sedated Psych: sedated Results Labs 02/05/24 12:03 02/05/24 05:32 Labs: Short CBC 02/04/24 02/04/24 02/05/24 Range/Units 15:25 19:38 00:02 WBC 18.4 H 12.8 H (4.8-10.8) X10*3/uL Hgb 7.0 L* D 9.4 L D 6.8 L* D (14.0-18.0) g/dl Hct 19.6 L* D 25.7 L D 18.5 L* D (42.0-52.0) % Plt Count 242 170 D (160-400) X10*3/uL 02/05/24 Range/Units 05:32 WBC 9.1 (4.8-10.8) X10*3/uL Hgb 8.7 L D (14.0-18.0) g/dl Hct 24.4 L D (42.0-52.0) % Plt Count 92 L D (160-400) X10*3/uL BMP 02/04/24 02/04/24 02/05/24 15:25 19:38 05:32 Sodium 133 L 134 L 137 Potassium 4.0 4.3 4.2 Chloride 101 105 107 Carbon Dioxide 23 23 24 BUN 33 H 32 H 27 H Creatinine 1.14 0.96 0.95 Calcium 7.6 L D 6.9 L D 7.5 L D Liver Function 02/04/24 02/05/24 Range/Units 19:38 05:32 Total Bilirubin 2.2 H 2.0 H (0.0-1.0) mg/dL AST 24 16 (5-37) U/L ALT 15 11 (0-40) U/L Alkaline Phosphatase 48 27 L (39-117) U/L Albumin 2.8 L 3.1 L (3.5-5.0) g/dL Imaging CT scan - abdomen: Attestation: I personally reviewed and interpreted this imaging study as follows: (diverticulosis, pooling of contrast left colon) Assessment and Plan (1) Acute blood loss anemia: Status: Acute Plan 1/ Acute blood loss anemia with active bleeding seen on CT now having recurrence. PLAN: 1/ Discussed with Dr Michelle, he plans to speak to IR to see if repeat embolization would be worthwhile, 2/ If ongoing bleeding inspite of embolization then can attempt colonsocopy with prep thru OG, to ID bleeding site and clip 3/ surgery would be another option, but his family do not seem to want that --per daughter pt has been declining last 6 months and verbalized he did not want aggressive treatments Procedures Date of Service Date of Service: 02/05/24
[2024-02-05 12:09] LABS: PLT CLUMP 1; Red Cell Distribution Width 14.9 % (11.0-16.0)
[2024-02-05 12:11] LABS: Mean Corpuscular HGB Conc 36.7 g/dl (31.0-36.0); Mean Corpuscular Hemoglobin 31.8 pg (27.0-33.0); Mean Corpuscular Volume 86.5 fL (80.0-98.0); Red Blood Count 1.92 X10*6/uL (4.60-5.80)
[2024-02-05 12:20] LABS: Hemoglobin 6.2 g/dl (14.0-18.0)
[2024-02-05 12:21] LABS: Hematocrit 16.7 % (42.0-52.0)
[2024-02-05 12:22] LABS: Hematocrit 16.6 % (42.0-52.0); Hemoglobin 6.1 g/dl (14.0-18.0)
[2024-02-05 13:13] LABS: Mean Platelet Volume 10.4 fL (9.4-12.4); Platelet Count 78 X10*3/uL (160-400); White Blood Count 7.3 X10*3/uL (4.8-10.8)
--- NOTE | 2024-02-05 13:43 | MHC.CM.PN ---
Pt intubated in ICU and unable to participate in CM assessment. +Covid, GIB and acute respiratory failure. Attempted to contact next of kin, dtr and life partner - no answer. Review of EMR notes pt resides w/life partner and does not appear to have services. Plans for today include attempting extubation. CM to follow for finalization of d/c plans. IMM in chart
[2024-02-05] MEDS: dexmedeTOMIDidine HCL/NS 400 MCG/100 ML INFUS..BTL 17.3 MCG IVCONT (14:31)
[2024-02-05] MEDS: Rocuronium Bromide 50 MG/5 ML VIAL 100 MG IVPUSH (18:00)
--- NOTE | 2024-02-05 18:10 | PM.CCN ---
Critical Care Event Note Summary Date of Service: 02/05/24 Code activated: No Narrative: This case had a high probability of a clinically significant, sudden, or life threatening deterioration of this patient's condition which required my full and direct attention, intervention and personal management. Critical Care Time (minutes): 35 Comment: Patient had another episode of large bloody bowel movement this afternoon. Following this he received 1 unit of PRBC and then was taken for an emergent CTA which showed active extravasation. He was taken to IR suit by Dr. Herrera and underwent successful coil embolization of 1 of the branch arteries (of inferior mesenteric artery) which showed active extravasation during the procedure. Procedure was uneventful and patient is brought back to the unit. We will prepare him for colonoscopy for tomorrow
[2024-02-05 18:47] LABS: INTERNATIONAL NORM RATIO 1.3 (0.9-1.1); Prothrombin Time 15.4 SEC (11.1-13.3)
[2024-02-05 20:16] LABS: Basophils Percent Auto 0.1 % (0-2); PLT CLUMP 1; Red Cell Distribution Width 14.8 % (11.0-16.0); SCAN SMEAR FLAG 1
[2024-02-05 20:16] LABS: ABG Base Excess 1.2 mmol/L; ABG HCO3 24 mmol/L (22-26); ABG pCO2 33 mmHg (32-45); ABG pH 7.47 (7.35-7.45); ABG pO2 122 mmHg (83-108)
[2024-02-05 20:18] LABS: Hemoglobin 8.4 g/dl (14.0-18.0); Imm Gran Abs Auto 0.25 X10*3/uL (0.00-0.03); Imm Gran Pct Auto 2.6 % (0.0-0.4); Lymphocytes Absolute Auto 0.9 X10*3/uL (1.2-4.9); Lymphocytes Percent Auto 9.5 % (20-40); MANUAL DIFF FLAG SCAN; Mean Corpuscular HGB Conc 36.5 g/dl (31.0-36.0); Mean Corpuscular Hemoglobin 31.1 pg (27.0-33.0); Mean Corpuscular Volume 85.2 fL (80.0-98.0); Mean Platelet Volume 10.4 fL (9.4-12.4); Monocytes Absolute Auto 0.3 X10*3/uL (0.1-1.2); Monocytes Percent Auto 2.6 % (2-11); NRBC Pct Auto 0.7 /100WBC (0.0-0.2); Neutrophils Absolute Auto 8.3 x10*3/uL (2.0-8.3); Neutrophils Percent Auto 85.2 % (45-73)
[2024-02-05] MEDS: dexmedeTOMIDidine HCL/NS 400 MCG/100 ML INFUS..BTL 15.14 MCG IVCONT (20:25)
[2024-02-05 20:26] LABS: White Blood Count 9.7 X10*3/uL (4.8-10.8)
[2024-02-05 20:27] LABS: Platelet Count 71 X10*3/uL (160-400)
[2024-02-05 20:34] LABS: Alanine Aminotransferase 10 U/L (0-40); Albumin Level 3.2 g/dL (3.5-5.0); Alkaline Phosphatase 22 U/L (39-117); Anion Gap 11 (12-20); Aspartate Amino Transferase 13 U/L (5-37); Bilirubin Total 1.6 mg/dL (0.0-1.0); Blood Urea Nitrogen 28 mg/dL (9-16); Calcium 7.4 mg/dL (8.4-10.2); Carbon Dioxide 24 mmol/L (22-29); Chloride 107 mmol/L (96-108); Creatinine Clr Calc Pharmacy 75.6; Estimated Glomerular Filt Rate > 60; Glucose Random 219 mg/dL (60-115); Phosphorus 3.4 mg/dL (2.7-4.5); Potassium 3.5 mmol/L (3.3-5.1); Sodium 138 mmol/L (135-145); Total Protein 4.4 g/dL (6.5-8.0)
[2024-02-05 20:50] LABS: SLIDE REVIEW VERIFIED
[2024-02-05] MEDS: PEG 3350/Na Sulf,Bicarb,Cl/KCL 4,000 ML SOLN.RECON 4000 ML PO (22:05)
[2024-02-05] MEDS: Potassium Chloride/H20 40 MEQ/100 ML PIGGYBACK 100 MEQ IV (22:05)
[2024-02-05 22:17] LABS: ABG Refer to POC result
[2024-02-06] VITALS (41 sets, daily range): BP systolic 108–165; BP diastolic 52–85; PULSE 51–97; RESP 12–33; TEMP 34.7–36.9; O2SAT 91–100; BMI 29.7
[2024-02-06] MEDS: dexmedeTOMIDidine HCL/NS 400 MCG/100 ML INFUS..BTL 17.3 MCG IVCONT (02:31)
[2024-02-06] MEDS: methylPREDNISolone Sod Succ 125 MG/2 ML VIAL 60 MG IVPUSH ×3 (03:23→19:56)
[2024-02-06] MEDS: Piperacillin Sodium/Tazobactam 4.5 GM in 0.9 % Sodium Chloride 100 ML IV ×3 (03:23→19:56)
[2024-02-06] MEDS: HYDROmorphone HCl 1 MG/ML SYRINGE IVPUSH (04:33)
[2024-02-06 04:52] LABS: ABG Base Excess 4.6 mmol/L; ABG HCO3 25 mmol/L (22-26); ABG pCO2 25 mmHg (32-45); ABG pO2 79 mmHg (83-108)
[2024-02-06 04:57] LABS: ABG Refer to POC result
[2024-02-06 05:27] LABS: MANUAL DIFF FLAG NO
[2024-02-06 05:35] LABS: Basophils Percent Auto 0.2 % (0-2); Hemoglobin 8.1 g/dl (14.0-18.0); Imm Gran Abs Auto 0.23 X10*3/uL (0.00-0.03); Lymphocytes Absolute Auto 0.7 X10*3/uL (1.2-4.9); Lymphocytes Percent Auto 6.1 % (20-40); Mean Corpuscular HGB Conc 36.8 g/dl (31.0-36.0); Mean Corpuscular Hemoglobin 31.4 pg (27.0-33.0); Mean Corpuscular Volume 85.3 fL (80.0-98.0); Mean Platelet Volume 10.7 fL (9.4-12.4); Monocytes Absolute Auto 0.3 X10*3/uL (0.1-1.2); Monocytes Percent Auto 2.4 % (2-11); NRBC Pct Auto 0.6 /100WBC (0.0-0.2); Neutrophils Absolute Auto 10.5 x10*3/uL (2.0-8.3); Neutrophils Percent Auto 89.3 % (45-73); Platelet Count 83 X10*3/uL (160-400); Red Blood Count 2.58 X10*6/uL (4.60-5.80); Red Cell Distribution Width 14.9 % (11.0-16.0); White Blood Count 11.7 X10*3/uL (4.8-10.8)
[2024-02-06 05:45] LABS: Alanine Aminotransferase 12 U/L (0-40); Albumin Level 3.1 g/dL (3.5-5.0); Alkaline Phosphatase 41 U/L (39-117); Anion Gap 14 (12-20); Aspartate Amino Transferase 18 U/L (5-37); Bilirubin Total 1.5 mg/dL (0.0-1.0); Blood Urea Nitrogen 28 mg/dL (9-16); Calcium 7.6 mg/dL (8.4-10.2); Carbon Dioxide 24 mmol/L (22-29); Chloride 107 mmol/L (96-108); Creatinine Clr Calc Pharmacy 69.6; Estimated Glomerular Filt Rate > 60; Glucose Random 197 mg/dL (60-115); Magnesium 1.9 mg/dL (1.6-2.6); Phosphorus 2.7 mg/dL (2.7-4.5); Potassium 3.3 mmol/L (3.3-5.1); Sodium 142 mmol/L (135-145); Total Protein 4.5 g/dL (6.5-8.0)
[2024-02-06] MEDS: dexmedeTOMIDidine HCL/NS 400 MCG/100 ML INFUS..BTL 19.46 MCG IVCONT (06:20)
[2024-02-06] MEDS: Potassium Chloride/H20 40 MEQ/100 ML PIGGYBACK 50 MEQ IV (06:21)
[2024-02-06] MEDS: propofoL 1,000 MG/100 ML VIAL 14.36 MG IVCONT (07:49)
[2024-02-06] MEDS: 0.9 % Sodium Chloride Flush 3 ML SYRINGE IVFLUSH ×3 (07:50→20:45)
--- NOTE | 2024-02-06 08:44 | P.PNCC_ITS ---
Subjective Subjective Date of Service: 02/06/24 Critical Care Time (minutes): 45 Comment: Patient went into the IR for angiogram and embolization for the 2nd time yesterday evening with successful embolization of another inferior mesenteric branch artery. No further bleeding, for further transfusions Remains on ventilator support this morning On Precedex and propofol for sedation Planned to undergo colonoscopy today Physical Exam 2 Vital Signs: Vital Signs: Last Vital Signs Temp 98.4 F 02/06/24 08:00 Pulse 55 02/06/24 08:00 Resp 18 02/06/24 08:00 BP 148/75 H 02/06/24 08:00 Pulse Ox 95 02/06/24 08:00 O2 Del Method Mechanical Ventil ation 02/06/24 08:00 O2 Flow Rate 35 02/04/24 15:00 FiO2 25 02/06/24 08:00 BMI result Body Mass Index 29.0 General: acute distress, ill appearing and tired appearing Nutritional Appearance: well nourished and overweight Eyes: appearance normal, both eyes and all related structures; Alignment and Position: alignment normal and position normal Neck: No lymphadenopathy, no thyromegaly Resp: bilateral air entry equal, bilateral crackles heard Cardio: Regular rate, regular rhythm; Heart sounds: S1 normal heart sound present and S2 normal heart sound present GI: soft, nontender, no guarding, no hepatosplenomegaly : bladder normal to inspection, bladder normal to palpation, no renal angle tenderness Skin: no rashes or lesions noted and elasticity normal Neuro: Sedated with propofol, no focal deficits Objective Data Labs 02/06/24 04:41 02/06/24 04:41 Labs: Laboratory Results - last 24 hr 02/04/24 02/05/24 02/05/24 15:25 12:03 12:03 WBC 7.3 RBC 1.92 L D Hgb 6.2 L* D 6.1 L* Hct 16.7 L* D MCV MCH MCHC RDW Plt Count MPV Immature Gran % (Auto) Neut % (Auto) Lymph % (Auto) [place] % (Auto) Eos % (Auto) Baso % (Auto) Lymph # (Auto) [place] # (Auto) Eos # (Auto) Baso # (Auto) Abs Immat Gran (auto) Absolute Neuts (auto) Absolute Nucleated RBC Nucleated RBC % (auto) Smear Tech's Comments PT INR O2 Saturation ABG pH at Pt Temp ABG pCO2 at Pt Temp ABG pO2 at Pt Temp ABG HCO3 ABG Base Excess (Actual) Sodium Potassium Chloride Carbon Dioxide Anion Gap BUN Creatinine Estim Creat Clear Calc Estimated GFR Random Glucose Calcium Phosphorus Magnesium Total Bilirubin AST ALT Alkaline Phosphatase Total Protein Albumin Blood Type O Positive Antibody Screen NEGATIVE Crossmatch See Detail 02/05/24 02/05/24 02/05/24 12:03 18:24 20:04 WBC RBC Hgb Hct 16.6 L* MCV 86.5 MCH 31.8 MCHC 36.7 H RDW 14.9 Plt Count 78 L MPV 10.4 Immature Gran % (Auto) Neut % (Auto) Lymph % (Auto) [place] % (Auto) Eos % (Auto) Baso % (Auto) Lymph # (Auto) [place] # (Auto) Eos # (Auto) Baso # (Auto) Abs Immat Gran (auto) Absolute Neuts (auto) Absolute Nucleated RBC 0.070 H Nucleated RBC % (auto) 1.0 H Smear Tech's Comments PT 15.4 H INR 1.3 H O2 Saturation 100.0 ABG pH at Pt Temp 7.47 H ABG pCO2 at Pt Temp 33 ABG pO2 at Pt Temp 122 H ABG HCO3 24 ABG Base Excess (Actual) 1.2 Sodium Potassium Chloride Carbon Dioxide Anion Gap BUN Creatinine Estim Creat Clear Calc Estimated GFR Random Glucose Calcium Phosphorus Magnesium Total Bilirubin AST ALT Alkaline Phosphatase Total Protein Albumin Blood Type Antibody Screen Crossmatch 02/05/24 02/06/24 02/06/24 20:10 04:41 04:42 WBC 9.7 11.7 H RBC 2.70 L D 2.58 L Hgb 8.4 L D 8.1 L Hct 23.0 L D 22.0 L MCV 85.2 85.3 MCH 31.1 31.4 MCHC 36.5 H 36.8 H RDW 14.8 14.9 Plt Count 71 L 83 L MPV 10.4 10.7 Immature Gran % (Auto) 2.6 H 2.0 H Neut % (Auto) 85.2 H 89.3 H Lymph % (Auto) 9.5 L 6.1 L [place] % (Auto) 2.6 2.4 Eos % (Auto) 0.0 0.0 Baso % (Auto) 0.1 0.2 Lymph # (Auto) 0.9 L 0.7 L [place] # (Auto) 0.3 0.3 Eos # (Auto) 0.0 0.0 Baso # (Auto) 0.0 0.0 Abs Immat Gran (auto) 0.25 H 0.23 H Absolute Neuts (auto) 8.3 10.5 H Absolute Nucleated RBC 0.070 H 0.070 H Nucleated RBC % (auto) 0.7 H 0.6 H Smear Tech's Comments VERIFIED PT INR O2 Saturation 99.0 ABG pH at Pt Temp 7.60 H* ABG pCO2 at Pt Temp 25 L ABG pO2 at Pt Temp 79 L ABG HCO3 25 ABG Base Excess (Actual) 4.6 Sodium 138 142 Potassium 3.5 3.3 Chloride 107 107 Carbon Dioxide 24 24 Anion Gap 11 L 14 BUN 28 H 28 H Creatinine 0.93 1.01 Estim Creat Clear Calc 75.6 69.6 Estimated GFR > 60 > 60 Random Glucose 219 H 197 H Calcium 7.4 L 7.6 L Phosphorus 3.4 2.7 Magnesium 2.0 1.9 Total Bilirubin 1.6 H 1.5 H AST 13 18 ALT 10 12 Alkaline Phosphatase 22 L 41 Total Protein 4.4 L 4.5 L Albumin 3.2 L 3.1 L Blood Type Antibody Screen Crossmatch Microbiology Microbiology Results: Microbiology 02/04/24 10:35 Blood - Central Line Blood Culture - Preliminary Prelim: GPC Gram Stain only 02/04/24 10:35 Blood - Central Line Blood Culture - Preliminary No growth after 24 hours. 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 SVT: treated with cardizem, currently rate controlled Respiratory: Acute on chronic hypoxemic respiratory failure due to progression of interstitial lung disease Intubated and placed on ventilator support On PRVC mode FiO2 30 %, PEEP 5, TV 400, RR 20 Peak pressures and plateau pressures are under the curve Ventilator management bundle with head end elevation, aspiration precaution, chlorhexidine mouthwash, daily awakening trials, daily spontaneous breathing trials we will place the patient on pressor support for weaning trials after colonoscopy GI: Lower GI bleed: Possibly secondary to a diverticular bleed Status post IR guided embolization of the inferior mesenteric artery at lower descending colon at the junction of sigmoid colon 2 times in in the past 2 days He is planned to undergo colonoscopy this morning We will closely monitor for any further bleeding episodes Renal: We will closely monitor I's and O's Avoid nephrotoxic medications Heme: Acute blood loss anemia: Secondary to lower GI bleed Received multiple units of PRBC transfusion. Lovenox reversed with protamine sulfate Endocrine: Blood sugars under control Sliding scale insulin as needed Infectious disease: Pancultures pending Continue Zyvox and cefepime for skin infections and lower left leg cellulitis MRSA nares positive Musculoskeletal: Decubitus ulcer prevention protocol Lines: Right femoral central line right femoral arterial sheath Prophylaxis: pantoprazole, SCD Critical care time spent is about 45 minutes on managing this critically patient with multiple organ acute encephalopathy, acute on chronic hypoxemic respiratory failure, acute blood loss anemia, lower GI bleed. Time is mainly spent on ventilator management, sedation management, changing ventilator settings, weaning from ventilator, titrating sedation, closely monitoring neurological status, stabilizing the patient for the procedure. Quality Stroke Does the patient have a stroke diagnosis?: No VTE Prior VTE?: No VTE Risk Level:: Medical - low VTE Device Contraindication: N/A - Device Ordered VTE Drug Contraindication: N/A - Med Ordered
[2024-02-06] MEDS: Chlorhexidine Gluc Oral Rinse 15 ML MOUTHWASH BUCCAL ×3 (09:53→19:56)
[2024-02-06] MEDS: Linezolid/D5W 600 MG/300 ML PIGGYBACK 300 MG IV ×2 (09:53→20:45)
[2024-02-06 11:28] LABS: Hemoglobin 7.3 g/dl (14.0-18.0); Mean Corpuscular HGB Conc 35.8 g/dl (31.0-36.0); Mean Corpuscular Hemoglobin 31.1 pg (27.0-33.0); Mean Corpuscular Volume 86.8 fL (80.0-98.0); Mean Platelet Volume 10.9 fL (9.4-12.4); NRBC Pct Auto 0.7 /100WBC (0.0-0.2); Red Blood Count 2.35 X10*6/uL (4.60-5.80); Red Cell Distribution Width 15.5 % (11.0-16.0); White Blood Count 10.2 X10*3/uL (4.8-10.8)
[2024-02-06 11:34] LABS: Hematocrit 20.4 % (42.0-52.0); Platelet Count 82 X10*3/uL (160-400)
[2024-02-06] MEDS: HYDROmorphone HCl 0.5 MG/0.5 ML SYRINGE IVPUSH (13:51)
--- NOTE | 2024-02-06 14:12 | MHC.PIE ---
Patient increase anxiety, complain to family, I need to say goodbye, I am dying, increase work of breathing noted, weak cough. Encouraged to cough and deep breath. Patient did end up having moist cough. Work of breathing started to improve - RR under [address] Mtz made aware - came to see patient. Ordered one time dose dilaudid 0.5mg IVP and restart precedex drip at 0.2mcg/kg/hr - administered per JUL. Patient anxiety improved, but hallucinating / seeing bugs - Dr Mtz ordered Lui Key RN made aware of meds given and ordered.
[2024-02-06] MEDS: Haloperidol Lactate 5 MG/ML VIAL 2.5 MG IM (14:26)
--- NOTE | 2024-02-06 14:43 | MHC.CM.PN ---
Met w/pt's dtrs to review d/c planning needs: pt resides w/significant other, Frida and is independent with all care needs. [facility] not entirely sure on [facility]) Dtr Farida lives on the [place] [address] and assists pt as needed. She will transport him to home. RE: post d/c follow up: pt may benefit from VNA: broad referrals made. HCP on file and verified. IMM in chart CM to follow for finalization of d/c needs including confirmation of VNA.
--- NOTE | 2024-02-06 15:31 | HO.WOUND ---
Wound Care Consult: Attempted Arrival to unit direct care nurse was working with patient. Will return at future date and time. Of note the various skin tears on the arms and legs appear to be related to his Thrmocytopenia see lab results for details. This is likely impacting the wound appearance. Treatment can consist of cleansing with NS apply skin prep and cover with xeroform, dry gauze and wrap. Limit tape and trauma to skin. Change daily. The right great toe wound was not assessed and photo uploaded was difficult to determine details or wound - will assess in person at future date and time.
[2024-02-06 18:06] LABS: Hematocrit 22.2 % (42.0-52.0); Mean Corpuscular Hemoglobin 31.6 pg (27.0-33.0); Mean Corpuscular Volume 87.7 fL (80.0-98.0); Mean Platelet Volume 10.6 fL (9.4-12.4); NRBC Pct Auto 0.7 /100WBC (0.0-0.2); Red Blood Count 2.53 X10*6/uL (4.60-5.80); Red Cell Distribution Width 15.3 % (11.0-16.0); White Blood Count 11.7 X10*3/uL (4.8-10.8)
[2024-02-06 18:43] LABS: Platelet Count 92 X10*3/uL (160-400)
--- NOTE | 2024-02-06 18:48 | P.PNGI_ITS ---
Subjective Subjective Date of Service: 02/06/24 Interval History: patient just extubated no longer on pressors went back to IR last night and had further embolization Slight decrease in HGb this morning, rectal bag with old appearing blood Critical Care Time (minutes): 0 Physical Exam 2 Vital Signs: Vital Signs: Last Vital Signs Temp 97 F 02/06/24 17:58 Pulse 66 02/06/24 17:58 Resp 19 02/06/24 17:58 BP 140/62 H 02/06/24 17:58 Pulse Ox 100 02/06/24 17:58 O2 Del Method Oxymask 02/06/24 17:58 O2 Flow Rate 8 02/06/24 17:58 FiO2 25 02/06/24 12:00 BMI result Body Mass Index 29.7 Const: General: confusion Orientation/consciousness: confusion Resp: Effort & Inspection: not able to speak in complete sentences, Actively coughing and no stridor GI: Inspection: Yes normal to inspection Palpation (GI): Soft to palpation and no guarding Neuro: General: moves all extremities and confusion Psych: Appearance: disheveled Objective Data Labs 02/06/24 17:55 02/06/24 04:41 Labs: Laboratory Results - last 24 hr 02/04/24 02/05/24 02/05/24 15:25 12:03 18:24 WBC RBC Hgb Hct MCV MCH MCHC RDW Plt Count MPV Immature Gran % (Auto) Neut % (Auto) Lymph % (Auto) [place] % (Auto) Eos % (Auto) Baso % (Auto) Lymph # (Auto) [place] # (Auto) Eos # (Auto) Baso # (Auto) Abs Immat Gran (auto) Absolute Neuts (auto) Absolute Nucleated RBC Nucleated RBC % (auto) Smear Tech's Comments Smear Path Review PT 15.4 H INR 1.3 H O2 Saturation ABG pH at Pt Temp ABG pCO2 at Pt Temp ABG pO2 at Pt Temp ABG HCO3 ABG Base Excess (Actual) Sodium Potassium Chloride Carbon Dioxide Anion Gap BUN Creatinine Estim Creat Clear Calc Estimated GFR Random Glucose Calcium Phosphorus Magnesium Total Bilirubin AST ALT Alkaline Phosphatase Total Protein Albumin Blood Type O Positive Antibody Screen NEGATIVE Crossmatch See Detail 02/05/24 02/05/24 02/06/24 20:04 20:10 04:41 WBC 9.7 11.7 H RBC 2.70 L D 2.58 L Hgb 8.4 L D 8.1 L Hct 23.0 L D 22.0 L MCV 85.2 85.3 MCH 31.1 31.4 MCHC 36.5 H 36.8 H RDW 14.8 14.9 Plt Count 71 L 83 L MPV 10.4 10.7 Immature Gran % (Auto) 2.6 H 2.0 H Neut % (Auto) 85.2 H 89.3 H Lymph % (Auto) 9.5 L 6.1 L [place] % (Auto) 2.6 2.4 Eos % (Auto) 0.0 0.0 Baso % (Auto) 0.1 0.2 Lymph # (Auto) 0.9 L 0.7 L [place] # (Auto) 0.3 0.3 Eos # (Auto) 0.0 0.0 Baso # (Auto) 0.0 0.0 Abs Immat Gran (auto) 0.25 H 0.23 H Absolute Neuts (auto) 8.3 10.5 H Absolute Nucleated RBC 0.070 H 0.070 H Nucleated RBC % (auto) 0.7 H 0.6 H Smear Tech's Comments VERIFIED Smear Path Review PT INR O2 Saturation 100.0 ABG pH at Pt Temp 7.47 H ABG pCO2 at Pt Temp 33 ABG pO2 at Pt Temp 122 H ABG HCO3 24 ABG Base Excess (Actual) 1.2 Sodium 138 142 Potassium 3.5 3.3 Chloride 107 107 Carbon Dioxide 24 24 Anion Gap 11 L 14 BUN 28 H 28 H Creatinine 0.93 1.01 Estim Creat Clear Calc 75.6 69.6 Estimated GFR > 60 > 60 Random Glucose 219 H 197 H Calcium 7.4 L 7.6 L Phosphorus 3.4 2.7 Magnesium 2.0 1.9 Total Bilirubin 1.6 H 1.5 H AST 13 18 ALT 10 12 Alkaline Phosphatase 22 L 41 Total Protein 4.4 L 4.5 L Albumin 3.2 L 3.1 L Blood Type Antibody Screen Crossmatch 02/06/24 02/06/24 02/06/24 04:42 11:00 17:55 WBC 10.2 11.7 H RBC 2.35 L 2.53 L Hgb 7.3 L 8.0 L Hct 20.4 L* 22.2 L MCV 86.8 87.7 MCH 31.1 31.6 MCHC 35.8 36.0 RDW 15.5 15.3 Plt Count 82 L 92 L MPV 10.9 10.6 Immature Gran % (Auto) Neut % (Auto) Lymph % (Auto) [place] % (Auto) Eos % (Auto) Baso % (Auto) Lymph # (Auto) [place] # (Auto) Eos # (Auto) Baso # (Auto) Abs Immat Gran (auto) Absolute Neuts (auto) Absolute Nucleated RBC 0.070 H 0.080 H Nucleated RBC % (auto) 0.7 H 0.7 H Smear Tech's Comments Smear Path Review PT INR O2 Saturation 99.0 ABG pH at Pt Temp 7.60 H* ABG pCO2 at Pt Temp 25 L ABG pO2 at Pt Temp 79 L ABG HCO3 25 ABG Base Excess (Actual) 4.6 Sodium Potassium Chloride Carbon Dioxide Anion Gap BUN Creatinine Estim Creat Clear Calc Estimated GFR Random Glucose Calcium Phosphorus Magnesium Total Bilirubin AST ALT Alkaline Phosphatase Total Protein Albumin Blood Type Antibody Screen Crossmatch Microbiology Microbiology Results: Microbiology 02/04/24 10:35 Blood - Central Line Blood Culture - Preliminary Prelim: GPC Gram Stain only 02/04/24 10:35 Blood - Central Line Blood Culture - Preliminary Staphylococcus aureus Procedures Date of Service Date of Service: 02/06/24 Progress Note: A&P Assessment and plan (1) Lower GI bleed: Status: Acute Plan 1/ Suspected diverticular bleed, x2 attempts at embolization, I offered who is HCP colonoscopy for further eval and possible endoscopic treatment if lesion is seen. She wants to hold at this time, as he was just extubated and off pressors now and second attempt at embolization may have been successful. will sign off, call if any concerns Time Spent With Patient Time: Total time managing care of this patient today ____ minutes. Quality Stroke Does the patient have a stroke diagnosis?: No VTE Prior VTE?: No VTE Risk Level:: Medical - low VTE Device Contraindication: N/A - Device Ordered VTE Drug Contraindication: N/A - Med Ordered
[2024-02-06 20:22] LABS: ABG Base Excess 7.5 mmol/L; ABG HCO3 30 mmol/L (22-26); ABG pCO2 34 mmHg (32-45); ABG pH 7.54 (7.35-7.45); ABG pO2 93 mmHg (83-108)
[2024-02-06 21:55] LABS: Hemoglobin 7.6 g/dl (14.0-18.0)
[2024-02-06 22:15] LABS: Hematocrit 20.8 % (42.0-52.0)
[2024-02-06] MEDS: amLODIPine Besylate 10 MG TABLET PO (22:27)
[2024-02-06] MEDS: hydrALAZINE HCl 20 MG/ML VIAL 10 MG IVPUSH (23:05)
[2024-02-07] VITALS (24 sets, daily range): BP systolic 92–144; BP diastolic 53–85; PULSE 66–126; RESP 19–40; TEMP 36–37.1; O2SAT 91–100; BMI 28.5
[2024-02-07 01:26] LABS: Hematocrit 21.6 % (42.0-52.0); Hemoglobin 7.8 g/dl (14.0-18.0)
[2024-02-07] MEDS: Piperacillin Sodium/Tazobactam 4.5 GM in 0.9 % Sodium Chloride 100 ML IV ×3 (04:11→21:11)
[2024-02-07] MEDS: methylPREDNISolone Sod Succ 125 MG/2 ML VIAL 60 MG IVPUSH ×2 (04:11→15:38)
[2024-02-07 05:02] LABS: ABG Base Excess 5.4 mmol/L; ABG HCO3 27 mmol/L (22-26); ABG pCO2 27 mmHg (32-45); ABG pH 7.59 (7.35-7.45); ABG pO2 99 mmHg (83-108)
[2024-02-07 05:15] LABS: Basophils Percent Auto 0.1 % (0-2); Hematocrit 21.9 % (42.0-52.0); Hemoglobin 7.7 g/dl (14.0-18.0); Imm Gran Abs Auto 0.18 X10*3/uL (0.00-0.03); Imm Gran Pct Auto 1.9 % (0.0-0.4); Lymphocytes Absolute Auto 0.5 X10*3/uL (1.2-4.9); Lymphocytes Percent Auto 5.5 % (20-40); MANUAL DIFF FLAG SCAN; Mean Corpuscular HGB Conc 35.2 g/dl (31.0-36.0); Mean Corpuscular Hemoglobin 30.9 pg (27.0-33.0); Mean Platelet Volume 10.3 fL (9.4-12.4); Monocytes Absolute Auto 0.2 X10*3/uL (0.1-1.2); Monocytes Percent Auto 2.4 % (2-11); NRBC Pct Auto 0.8 /100WBC (0.0-0.2); Neutrophils Absolute Auto 8.6 x10*3/uL (2.0-8.3); Neutrophils Percent Auto 90.1 % (45-73); Platelet Count 94 X10*3/uL (160-400); Red Blood Count 2.49 X10*6/uL (4.60-5.80); Red Cell Distribution Width 14.9 % (11.0-16.0); SCAN SMEAR FLAG 1; White Blood Count 9.6 X10*3/uL (4.8-10.8)
[2024-02-07 05:17] LABS: ABG Refer to POC result
[2024-02-07 05:37] LABS: Alanine Aminotransferase 14 U/L (0-40); Alkaline Phosphatase 33 U/L (39-117); Anion Gap 11 (12-20); Aspartate Amino Transferase 17 U/L (5-37); Bilirubin Total 1.3 mg/dL (0.0-1.0); Blood Urea Nitrogen 24 mg/dL (9-16); Calcium 7.9 mg/dL (8.4-10.2); Carbon Dioxide 29 mmol/L (22-29); Chloride 106 mmol/L (96-108); Creatinine Clr Calc Pharmacy 70.4; Estimated Glomerular Filt Rate > 60; Glucose Random 193 mg/dL (60-115); Magnesium 2.2 mg/dL (1.6-2.6); Phosphorus 2.9 mg/dL (2.7-4.5); Sodium 143 mmol/L (135-145); Total Protein 4.7 g/dL (6.5-8.0)
[2024-02-07 05:38] LABS: SLIDE REVIEW VERIFIED
[2024-02-07] MEDS: Potassium Chloride/H20 40 MEQ/100 ML PIGGYBACK 100 MEQ IV (06:10)
--- NOTE | 2024-02-07 08:53 | PM.CCPN ---
Subjective Subjective Date of Service: 02/07/24 Critical Care Time (minutes): 35 Comment: Extubated yesterday, tolerating liberation from ventilator okay Continues to have some bloody bowel movements Hemoglobin stable at 7 Physical Exam Vital Signs: Vital Signs: Last Vital Signs Temp 97.7 F 02/07/24 08:00 Pulse 89 02/07/24 08:00 Resp 31 H 02/07/24 08:00 BP 130/67 02/07/24 08:00 Pulse Ox 93 02/07/24 08:00 O2 Del Method Oxymask 02/07/24 08:00 O2 Flow Rate 3 02/07/24 08:00 FiO2 25 02/06/24 12:00 Oxygen Flow Rate 3.5 02/07/24 07:41 BMI result Body Mass Index 28.5 General: ill appearing and tired appearing Nutritional Appearance: Poor nourished and normal weight Eyes: appearance normal, both eyes and all related structures; Alignment and Position: alignment normal and position normal Neck: No lymphadenopathy, no thyromegaly Resp: bilateral air entry equal, bilateral wheeze heard Cardio: Regular rate, regular rhythm; Heart sounds: S1 normal heart sound present and S2 normal heart sound present GI: soft, nontender, no guarding, no hepatosplenomegaly : bladder normal to inspection, bladder normal to palpation, no renal angle tenderness Skin: no rashes or lesions noted and elasticity normal Neuro: oriented to person, confusion present, moves all extremities Objective Data Labs 02/07/24 05:03 02/07/24 05:03 Labs: Laboratory Results - last 24 hr 02/05/24 02/06/24 02/06/24 12:03 11:00 17:55 WBC 10.2 11.7 H RBC 2.35 L 2.53 L Hgb 7.3 L 8.0 L Hct 20.4 L* 22.2 L MCV 86.8 87.7 MCH 31.1 31.6 MCHC 35.8 36.0 RDW 15.5 15.3 Plt Count 82 L 92 L MPV 10.9 10.6 Immature Gran % (Auto) Neut % (Auto) Lymph % (Auto) [place] % (Auto) Eos % (Auto) Baso % (Auto) Lymph # (Auto) [place] # (Auto) Eos # (Auto) Baso # (Auto) Abs Immat Gran (auto) Absolute Neuts (auto) Absolute Nucleated RBC 0.070 H 0.080 H Nucleated RBC % (auto) 0.7 H 0.7 H Smear Tech's Comments Smear Path Review O2 Saturation ABG pH at Pt Temp ABG pCO2 at Pt Temp ABG pO2 at Pt Temp ABG HCO3 ABG Base Excess (Actual) Sodium Potassium Chloride Carbon Dioxide Anion Gap BUN Creatinine Estim Creat Clear Calc Estimated GFR Random Glucose Calcium Phosphorus Magnesium Total Bilirubin AST ALT Alkaline Phosphatase Total Protein Albumin 02/06/24 02/06/24 02/07/24 20:12 21:48 01:11 WBC RBC Hgb 7.6 L 7.8 L Hct 20.8 L* 21.6 L MCV MCH MCHC RDW Plt Count MPV Immature Gran % (Auto) Neut % (Auto) Lymph % (Auto) [place] % (Auto) Eos % (Auto) Baso % (Auto) Lymph # (Auto) [place] # (Auto) Eos # (Auto) Baso # (Auto) Abs Immat Gran (auto) Absolute Neuts (auto) Absolute Nucleated RBC Nucleated RBC % (auto) Smear Tech's Comments Smear Path Review O2 Saturation 100.0 ABG pH at Pt Temp 7.54 H ABG pCO2 at Pt Temp 34 ABG pO2 at Pt Temp 93 ABG HCO3 30 H ABG Base Excess (Actual) 7.5 Sodium Potassium Chloride Carbon Dioxide Anion Gap BUN Creatinine Estim Creat Clear Calc Estimated GFR Random Glucose Calcium Phosphorus Magnesium Total Bilirubin AST ALT Alkaline Phosphatase Total Protein Albumin 02/07/24 02/07/24 04:49 05:03 WBC 9.6 RBC 2.49 L Hgb 7.7 L Hct 21.9 L MCV 88.0 MCH 30.9 MCHC 35.2 RDW 14.9 Plt Count 94 L MPV 10.3 Immature Gran % (Auto) 1.9 H Neut % (Auto) 90.1 H Lymph % (Auto) 5.5 L [place] % (Auto) 2.4 Eos % (Auto) 0.0 Baso % (Auto) 0.1 Lymph # (Auto) 0.5 L [place] # (Auto) 0.2 Eos # (Auto) 0.0 Baso # (Auto) 0.0 Abs Immat Gran (auto) 0.18 H Absolute Neuts (auto) 8.6 H Absolute Nucleated RBC 0.080 H Nucleated RBC % (auto) 0.8 H Smear Tech's Comments VERIFIED Smear Path Review O2 Saturation 100.0 ABG pH at Pt Temp 7.59 H ABG pCO2 at Pt Temp 27 L ABG pO2 at Pt Temp 99 ABG HCO3 27 H ABG Base Excess (Actual) 5.4 Sodium 143 Potassium 3.0 L Chloride 106 Carbon Dioxide 29 Anion Gap 11 L BUN 24 H Creatinine 1.01 Estim Creat Clear Calc 70.4 Estimated GFR > 60 Random Glucose 193 H Calcium 7.9 L Phosphorus 2.9 Magnesium 2.2 Total Bilirubin 1.3 H AST 17 ALT 14 Alkaline Phosphatase 33 L Total Protein 4.7 L Albumin 3.0 L Microbiology Microbiology Results: Microbiology 02/04/24 10:35 Blood - Central Line Blood Culture - Final Staphylococcus aureus 02/04/24 10:35 Blood - Central Line Blood Culture - Preliminary Enterococcus/Streptococcus sp Progress Note: A&P Assessment and plan (1) Acute blood loss anemia: Status: Acute (2) Respiratory failure: Status: Acute (3) Lower GI bleed: Status: Acute (4) Dyspnea on exertion: Status: Acute (5) Interstitial pulmonary fibrosis: Status: Acute (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 Plan Neuro: Acute encephalopathy possibly due to delirium Significant confusion present, can not make any decisions for himself Cardiac: Hemorrhagic shock: Resolved Lost multiple units of blood with a lower GI bleed Blood pressure stable, off vasopressor support for 48 hours hypertension: will add amlodipine SVT: On the initial day of admission treated with cardizem, currently rate controlled Respiratory: Acute on chronic hypoxemic respiratory failure due to progression of interstitial lung disease Extubated yesterday, tolerating liberation From ventilator okay Continue steroids, will decrease the dose GI: Lower GI bleed: Possibly secondary to a diverticular bleed Status post IR guided embolization of the inferior mesenteric artery at lower descending colon at the junction of sigmoid colon twice so far. Renal: We will closely monitor I's and O's Avoid nephrotoxic medications Heme: Acute blood loss anemia: Secondary to lower GI bleed Received multiple units of PRBC transfusion. Lovenox reversed with protamine sulfate Endocrine: Blood sugars under control Sliding scale insulin as needed Infectious disease: Blood cultures from central line growing three bacterias which is possibly a contiminan; will repeat cultures Continue Zyvox and cefepime for skin infections and lower left leg cellulitis MRSA nares positive Musculoskeletal: Decubitus ulcer prevention protocol Lines: Right femoral central line- will take off right femoral arterial sheath- will take off Jamison catheter- will take off Prophylaxis: pantoprazole, SCD will transfer him to floor Quality Stroke Does the patient have a stroke diagnosis?: No VTE Prior VTE?: No VTE Risk Level:: Medical - low VTE Device Contraindication: N/A - Device Ordered VTE Drug Contraindication: N/A - Med Ordered
[2024-02-07] MEDS: Furosemide 40 MG/4 ML VIAL IVPUSH (10:01)
[2024-02-07] MEDS: 0.9 % Sodium Chloride Flush 3 ML SYRINGE IVFLUSH ×2 (10:01→17:39)
[2024-02-07] MEDS: Chlorhexidine Gluc Oral Rinse 15 ML MOUTHWASH BUCCAL ×2 (10:01→21:12)
[2024-02-07] MEDS: Linezolid/D5W 600 MG/300 ML PIGGYBACK 300 MG IV ×2 (10:02→21:12)
[2024-02-07] MEDS: Atorvastatin Calcium 40 MG TABLET PO (10:06)
[2024-02-07] MEDS: amLODIPine Besylate 10 MG TABLET PO (10:07)
--- NOTE | 2024-02-07 10:29 | MHC.CLN ---
F/U PT EXTUBATED YESTERDAY DISCUSSED AT ROUNDS WITH DIET TO ADVANCE TOLERATED PT PASSED NURSING BEDSIDE SWALLOW RECOMMEND REGULAR DIET MONITOR PO INTAKE
[2024-02-07] MEDS: Metoprolol Tartrate 25 MG TABLET PO ×2 (13:39→21:13)
--- NOTE | 2024-02-07 14:17 | MHC.CM.PN ---
Pt making clinical progress: A&Ox4 - respiratory status and GIB improving. Met with family to review d/c planning needs. Pt's significant other Frida states pt would not want to transfer to a SNF and the goals of d/c planning should focus on a return to home. Pt has been accepted by [facility] for skilled RN visits. Family will transport to home. CM to follow.
[2024-02-07 14:21] LABS: Hematocrit 24.5 % (42.0-52.0); Hemoglobin 8.8 g/dl (14.0-18.0)
--- NOTE | 2024-02-07 14:59 | PM.EVENT ---
Event Note Date of Service: 02/07/24 Event Note: Left femoral (arterial) sheath removed in ICU. Pressure was held for a total of 25 min. Patient had a small to moderate sized hematoma in the inner thigh prior to removal that did not increase in size after removal Time Spent With Patient Time: Total time managing care of this patient today ____ minutes.
--- NOTE | 2024-02-07 17:56 | PM.EVENT ---
Event Note Date of Service: 02/07/24 Event Note: This is a 73-year-old male admitted to the ICU for lower GI bleeding status post embolization x2. Vital signs stable Repeat H&H stable Per ICU attending code status changed to DNR/DNI, plan to return home with hospice when medically stable Further management as per ICU note Time Spent With Patient Time: Total time managing care of this patient today ____ minutes.
[2024-02-08] VITALS (10 sets, daily range): BP systolic 120–135; BP diastolic 67–78; PULSE 72–97; RESP 14–20; TEMP 36–37.1; O2SAT 96–100; BMI 28.8
[2024-02-08] MEDS: methylPREDNISolone Sod Succ 125 MG/2 ML VIAL 60 MG IVPUSH ×2 (04:26→16:32)
[2024-02-08] MEDS: Piperacillin Sodium/Tazobactam 4.5 GM in 0.9 % Sodium Chloride 100 ML IV ×2 (04:28→13:03)
[2024-02-08 07:32] LABS: Hematocrit 21.7 % (42.0-52.0); Hemoglobin 7.4 g/dl (14.0-18.0); Mean Corpuscular HGB Conc 34.1 g/dl (31.0-36.0); Mean Corpuscular Hemoglobin 30.6 pg (27.0-33.0); Mean Corpuscular Volume 89.7 fL (80.0-98.0); Mean Platelet Volume 10.4 fL (9.4-12.4); NRBC Pct Auto 0.2 /100WBC (0.0-0.2); Platelet Count 106 X10*3/uL (160-400); Red Blood Count 2.42 X10*6/uL (4.60-5.80); Red Cell Distribution Width 15.2 % (11.0-16.0); White Blood Count 8.6 X10*3/uL (4.8-10.8)
[2024-02-08 07:42] LABS: Anion Gap 11 (12-20); Blood Urea Nitrogen 27 mg/dL (9-16); Calcium 7.6 mg/dL (8.4-10.2); Carbon Dioxide 30 mmol/L (22-29); Chloride 101 mmol/L (96-108); Creatinine Clr Calc Pharmacy 79.7; Estimated Glomerular Filt Rate > 60; Glucose Random 213 mg/dL (60-115); Sodium 139 mmol/L (135-145)
[2024-02-08] MEDS: Metoprolol Tartrate 25 MG TABLET PO ×2 (08:54→20:11)
[2024-02-08] MEDS: Chlorhexidine Gluc Oral Rinse 15 ML MOUTHWASH BUCCAL ×2 (08:54→20:11)
[2024-02-08] MEDS: amLODIPine Besylate 10 MG TABLET PO (08:54)
[2024-02-08] MEDS: Atorvastatin Calcium 40 MG TABLET PO (08:54)
[2024-02-08] MEDS: Potassium Chloride Packet 20 MEQ PACKET 40 MEQ PO ×2 (08:54→20:12)
[2024-02-08] MEDS: allopurinoL 100 MG TABLET 200 MG PO (08:54)
[2024-02-08] MEDS: Linezolid/D5W 600 MG/300 ML PIGGYBACK 300 MG IV ×2 (08:55→20:12)
[2024-02-08] MEDS: 0.9 % Sodium Chloride Flush 3 ML SYRINGE IVFLUSH ×3 (08:55→20:23)
[2024-02-08 15:19] LABS: Hematocrit 27.4 % (42.0-52.0); Hemoglobin 9.6 g/dl (14.0-18.0)
--- NOTE | 2024-02-08 15:30 | P.PNIM_ITS ---
Subjective Subjective Date of Service: 02/08/24 Interval History: Seen and examined this morning Follow-up for respiratory failure, GI bleeding No documented bleeding overnight Patient awake, alert reports feeling better. Denies shortness of breath. Denies abdominal pain Review of Systems Review of Systems: Yes all other systems are reviewed and are negative Constitutional Constitutional: Denies chills and Denies fever(s) ENT Ears, Nose, Mouth, and Throat: Denies dizziness Cardiovascular Cardiovascular: Denies chest pain, Denies palpitations and Denies dyspnea Respiratory Respiratory: Reports cough and Denies dyspnea Neurologic Neurologic: Denies dizziness Endocrine Endocrine: Denies palpitations Physical Exam 2 Vital Signs: Vital Signs: Last Vital Signs Temp 96.8 F 02/08/24 13:01 Pulse 84 02/08/24 13:01 Resp 20 02/08/24 13:01 BP 120/67 02/08/24 13:01 Pulse Ox 97 02/08/24 11:43 O2 Del Method Oxymask 02/08/24 11:43 O2 Flow Rate 3 02/08/24 11:43 FiO2 25 02/06/24 12:00 Oxygen Flow Rate 3.5 02/08/24 07:00 BMI result Body Mass Index 28.8 Const: General: cooperative, comfortable, alert and awake Nutritional Appearance: average body habitus Orientation/consciousness: oriented to person and oriented to place Resp: Effort & Inspection: able to speak in complete sentences, no respiratory distress and no use of accessory muscles Auscultation: no wheezes Cardio: Rate: regular rate GI: Other: rectal tube nonbloody stool Inspection: No distended Palpation (GI): Soft to palpation and nontender : Other: rai, with clear yellow urine Neuro: General: oriented to person, oriented to place, moves all extremities and CN's II-XI intact bilaterally Extrem: General: Yes no pedal edema Objective Data Active Medications Allopurinol (Allopurinol 100 Mg Tablet) 200 mg PO DAILY [facility] Last Admin: 02/08/24 08:54 Dose: 200 mg Documented By: NELSON Amlodipine Besylate (Amlodipine Besylate 10 Mg Tablet) 10 mg PO DAILY [facility]; Protocol Last Admin: 02/08/24 08:54 Dose: 10 mg Documented By: NELSON Atorvastatin Calcium (Atorvastatin Calcium 40 Mg Tablet) 40 mg PO DAILY [facility] Last Admin: 02/08/24 08:54 Dose: 40 mg Documented By: NELSON Chlorhexidine Gluconate (Chlorhexidine Gluc Oral Rinse 15 Ml Mouthwash) 15 ml BUCCAL TID [facility] Last Admin: 02/08/24 14:26 Dose: Not Given Documented By: NELSON Non-Admin Reason: Patient Asleep Piperacillin Sod/Tazobactam (Sod 4.5 gm/ Sodium Chloride) 100 mls @ 200 mls/hr IV Q8H [facility] Last Infusion: 02/08/24 13:50 Dose: Infused Documented By: NELSON Linezolid (Zyvox/D5w) 600 mg in 300 mls @ 300 mls/hr IV Q12H [facility] Last Infusion: 02/08/24 10:07 Dose: Infused Documented By: NELSON Methylprednisolone Sodium Succinate (Methylprednisolone Sod Succ 125 Mg/2 Ml Vial) 60 mg IVPUSH Q12H [facility] Last Admin: 02/08/24 04:26 Dose: 60 mg Documented By: A[place] Metoprolol Tartrate (Metoprolol Tartrate 25 Mg Tablet) 25 mg PO BID [facility]; Protocol Last Admin: 02/08/24 08:54 Dose: 25 mg Documented By: NELSON Potassium Chloride (Potassium Chloride Packet 20 Meq Packet) 40 meq PO BID [facility] Stop: 02/08/24 21:01 Last Admin: 02/08/24 08:54 Dose: 40 meq Documented By: NELSON Sodium Chloride (0.9 % Sodium Chloride Flush 3 Ml Syringe) 3 ml IVFLUSH QSHIFT [facility] Last Admin: 02/08/24 08:55 Dose: 3 ml Documented By: NELSON Labs 02/08/24 15:05 02/08/24 06:28 Labs: Laboratory Results - last 24 hr 02/08/24 02/08/24 06:28 08:50 MCV 89.7 MCH 30.6 MCHC 34.1 RDW 15.2 Plt Count 106 L MPV 10.4 Absolute Nucleated RBC 0.020 H Nucleated RBC % (auto) 0.2 Anion Gap 11 L Estim Creat Clear Calc 79.7 Estimated GFR > 60 Random Glucose 213 H Calcium 7.6 L Blood Type O Positive Antibody Screen NEGATIVE Crossmatch See Detail Microbiology Microbiology Results: Microbiology 02/07/24 09:55 Blood Culture - Preliminary Blood - Venous No growth after 24 hours. 02/07/24 09:35 Blood Culture - Preliminary Blood - Venous No growth after 24 hours. 02/04/24 10:35 Blood Culture - Preliminary Blood - Central Line Staphylococcus aureus Enterococcus/Streptococcus sp 02/04/24 10:35 Blood Culture - Final Blood - Central Line Enterococcus faecalis Staphylococcus aureus Assessment and Plan (1) Acute blood loss anemia: Status: Acute (2) Respiratory failure: Status: Acute (3) Interstitial pulmonary fibrosis: Status: Acute Plan This is a 73-year-old male with history of interstitial lung disease on 3 L of supplemental oxygen, recent covid 19 infection who presented to the emergency department 02/03 with hypoxia was found to be tachypneic placed on BiPAP with no improvement and ultimately intubated in the emergency department subsequently found to be hypotensive requiring vasopressor support and later developed significant GI bleed requiring IR embolization x2 and numerous blood transfusions. Extubated 02/05 and downgraded to medical floor 02/07. Acute on chronic hypoxemic respiratory failure due to progression of interstitial lung disease, recent covid infection Extubated 02/05 Continue steroids, will decrease the dose hypokalemia replace and follow Acute toxic metablic encephalopathy likely due to delirium improving Cardiac: Hemorrhagic shock: Resolved Lost multiple units of blood with a lower GI bleed Blood pressure stable, s/p vasopressor support in ICU hypertension: continue metoprolol and amlodipine Benazepril-hydrochlorothiazide on hold SVT: On the initial day of admission treated with cardizem, currently rate controlled on metoprolol acute blood loss anemia due to acute lower GI bleeding Possibly secondary to a diverticular bleed Status post IR guided embolization of the inferior mesenteric artery at lower descending colon at the junction of sigmoid colon x2 s/p multiple blood transfusions, H/H trending down although no further bleeding noted, will transfuse additional unit of blood today follow H/H bacteremia, polymicrobial Blood cultures from central line growing three bacterias which is possibly a contiminant; repeat cultures negative UA negative was on zosyn and zyvox for skin infections and lower left leg cellulitis - will stop zosyn Prophylaxis: SCD due to GI bleeding/anemia Code status: Had long discussion with patient and his at the bedside. Patient reports wanting to be a full code and at the bedside is in agreement. They think there was a misunderstanding while in the ICU. He would want everything done at this time including intubation and CPR if necessary. MOLST form signed with family at bedside. Patient awake and alert and oriented able to make decisions at this time. Quality Stroke Does the patient have a stroke diagnosis?: No VTE Prior VTE?: No VTE Risk Level:: Medical - low VTE Device Contraindication: N/A - Device Ordered VTE Drug Contraindication: N/A - Med Ordered
[2024-02-08 18:36] LABS: Hematocrit 28.3 % (42.0-52.0); Hemoglobin 9.9 g/dl (14.0-18.0)
[2024-02-08] MEDS: traZODone HCL 25 MG HALFTAB PO (20:11)
[2024-02-09] VITALS (8 sets, daily range): BP systolic 113–132; BP diastolic 68–75; PULSE 78–120; RESP 16–20; TEMP 36.1–36.7; O2SAT 96–100
[2024-02-09 06:36] LABS: Hematocrit 27.7 % (42.0-52.0); Hemoglobin 9.5 g/dl (14.0-18.0); Mean Corpuscular HGB Conc 34.3 g/dl (31.0-36.0); Mean Corpuscular Hemoglobin 30.7 pg (27.0-33.0); Mean Corpuscular Volume 89.6 fL (80.0-98.0); Mean Platelet Volume 10.1 fL (9.4-12.4); NRBC Pct Auto 0.4 /100WBC (0.0-0.2); Red Blood Count 3.09 X10*6/uL (4.60-5.80); Red Cell Distribution Width 14.7 % (11.0-16.0); White Blood Count 8.5 X10*3/uL (4.8-10.8)
[2024-02-09 06:46] LABS: Platelet Count 94 X10*3/uL (160-400)
--- NOTE | 2024-02-09 08:21 | ECG_ITS ---
Test Reason : tachcyardia Blood Pressure : / mmHG Vent. Rate : 133 BPM Atrial Rate : 000 BPM P-R Int : 000 ms QRS Dur : 076 ms QT Int : 312 ms P-R-T Axes : 000 -04 000 degrees QTc Int : 464 ms Atrial fibrillation with rapid ventricular response Minimal voltage criteria for LVH, may be normal variant ( R in aVL ) Nonspecific ST abnormality Abnormal ECG When compared with ECG of 04-FEB-2024 09:39, Atrial fibrillation has replaced Sinus tachycardia Referred By: Maile Maldonado Electronically Signed By:WILLIAN CARRANZA
[2024-02-09] MEDS: amLODIPine Besylate 10 MG TABLET PO (08:24)
[2024-02-09] MEDS: allopurinoL 100 MG TABLET 200 MG PO (08:25)
[2024-02-09] MEDS: Metoprolol Tartrate 25 MG TABLET PO ×2 (08:25→22:00)
[2024-02-09] MEDS: 0.9 % Sodium Chloride Flush 3 ML SYRINGE IVFLUSH ×3 (08:25→23:23)
[2024-02-09] MEDS: methylPREDNISolone Sod Succ 125 MG/2 ML VIAL 60 MG IVPUSH (08:25)
[2024-02-09] MEDS: Atorvastatin Calcium 40 MG TABLET PO (08:25)
--- NOTE | 2024-02-09 08:50 | P.PNIM_ITS ---
Subjective Subjective Date of Service: 02/09/24 Interval History: seen and examined this morning follow up for respiratory failure, GI bleeding still with some cough, but pt and family report this is chronic reports breathing is better hasn't gotten out of bed converted to afib rvr this am, thus far asymptomatic Review of Systems Review of Systems: Yes all other systems are reviewed and are negative Constitutional Constitutional: Denies chills and Denies fever(s) ENT Ears, Nose, Mouth, and Throat: Denies dizziness Cardiovascular Cardiovascular: Denies chest pain and Denies palpitations Respiratory Respiratory: Reports cough Gastrointestinal Gastrointestinal: Denies abdominal pain, Reports diarrhea, Denies nausea and Denies vomiting Neurologic Neurologic: Denies dizziness Endocrine Endocrine: Denies palpitations Physical Exam 2 Vital Signs: Vital Signs: Last Vital Signs Temp 97.3 F 02/09/24 07:54 Pulse 79 02/09/24 07:54 Resp 20 02/09/24 07:54 BP 131/73 02/09/24 07:54 Pulse Ox 99 02/09/24 07:54 O2 Del Method Oxymask 02/09/24 07:54 O2 Flow Rate 3 02/09/24 07:54 FiO2 25 02/06/24 12:00 Oxygen Flow Rate 3.5 02/09/24 07:00 BMI result Body Mass Index 28.8 Const: General: cooperative, comfortable, alert and awake Nutritional Appearance: average body habitus Orientation/consciousness: oriented to person and oriented to place Resp: Other: diminished breath sounds; dry crackles b/l; poor inspiratory effort Effort & Inspection: able to speak in complete sentences, no respiratory distress and no use of accessory muscles Auscultation: no wheezes Cardio: Rate: tachycardic GI: Other: rectal tube nonbloody stool Inspection: No distended Palpation (GI): Soft to palpation and nontender : Other: [place] cath - clear yellow urine Neuro: General: oriented to person, oriented to place, moves all extremities and CN's II-XI intact bilaterally Extrem: General: Yes no pedal edema Objective Data Active Medications Allopurinol (Allopurinol 100 Mg Tablet) 200 mg PO DAILY [facility] Last Admin: 02/09/24 08:25 Dose: 200 mg Documented By: NELSON Amlodipine Besylate (Amlodipine Besylate 10 Mg Tablet) 10 mg PO DAILY [facility]; Protocol Last Admin: 02/09/24 08:24 Dose: 10 mg Documented By: NELSON Atorvastatin Calcium (Atorvastatin Calcium 40 Mg Tablet) 40 mg PO DAILY [facility] Last Admin: 02/09/24 08:25 Dose: 40 mg Documented By: NELSON Chlorhexidine Gluconate (Chlorhexidine Gluc Oral Rinse 15 Ml Mouthwash) 15 ml BUCCAL TID [facility] Last Admin: 02/08/24 20:11 Dose: 15 ml Documented By: A[place] Linezolid (Zyvox/D5w) 600 mg in 300 mls @ 300 mls/hr IV Q12H [facility] Last Infusion: 02/08/24 21:12 Dose: Infused Documented By: AUSTIN Methylprednisolone Sodium Succinate (Methylprednisolone Sod Succ 125 Mg/2 Ml Vial) 60 mg IVPUSH Q24H [facility] Last Admin: 02/09/24 08:25 Dose: 60 mg Documented By: NELSON Metoprolol Tartrate (Metoprolol Tartrate 25 Mg Tablet) 25 mg PO BID [facility]; Protocol Last Admin: 02/09/24 08:25 Dose: 25 mg Documented By: NELSON Sodium Chloride (0.9 % Sodium Chloride Flush 3 Ml Syringe) 3 ml IVFLUSH QSHIFT [facility] Last Admin: 02/09/24 08:25 Dose: 3 ml Documented By: NELSON Trazodone HCl (Trazodone Hcl 25 Mg Halftab) 25 mg PO BEDTIME MRX1 PRN PRN Reason: Insomnia Last Admin: 02/08/24 20:11 Dose: 25 mg Documented By: AUSTIN Labs 02/09/24 06:04 02/09/24 09:40 Labs: Laboratory Results - last 24 hr 02/08/24 02/09/24 08:50 06:04 MCV 89.6 MCH 30.7 MCHC 34.3 RDW 14.7 Plt Count 94 L MPV 10.1 Absolute Nucleated RBC 0.030 H Nucleated RBC % (auto) 0.4 H Blood Type O Positive Antibody Screen NEGATIVE Crossmatch See Detail Microbiology Microbiology Results: Microbiology 02/04/24 10:35 Blood Culture - Final Blood - Central Line Enterococcus faecalis Staphylococcus aureus 02/04/24 10:35 Blood Culture - Final Blood - Central Line Staphylococcus aureus Enterococcus faecalis 02/07/24 09:55 Blood Culture - Preliminary Blood - Venous No growth after 24 hours. 02/07/24 09:35 Blood Culture - Preliminary Blood - Venous No growth after 24 hours. Assessment and Plan (1) Bacteremia: Status: Acute (2) Acute blood loss anemia: Status: Acute (3) Atrial fibrillation with RVR: Status: Acute Plan This is a 73-year-old male with 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 Extubated 02/05 and downgraded to medical floor 02/07. SVT/afib On the initial day of admission treated with cardizem, was rate controlled on metoprolol went into afib with rvr am of 02/08 will order echo, check chemistry cardiology consult pending HR still elevated - will start cardizem drip Acute on chronic hypoxemic respiratory failure due to progression of interstitial lung disease, recent covid infection Extubated 02/05 Continue to wean steroids hypokalemia Resolved with replacement Acute toxic metablic encephalopathy likely due to delirium improving acute blood loss anemia/hemorrhagic shock due to acute lower GI bleeding s/p vasopressor support in ICU Status post IR guided embolization of the inferior mesenteric artery at lower descending colon at the junction of sigmoid colon x2 s/p multiple blood transfusions, no further bleeding noted H/H stable today hypertension: continue metoprolol and amlodipine Benazepril-hydrochlorothiazide on hold bacteremia, polymicrobial Blood cultures from central line growing three bacterias possibly a contaminant; repeat cultures negative UA negative was on zosyn and zyvox (started 02/03) for ? lower left leg cellulitis - will stop zosyn continue IV zyvox. will likely need two weeks of antibiotics probable IV with midline - will consult ID Thrombocytopenia Likely dilutional from numerous blood transfusions dvt PPx-SCD due to GI bleeding/anemia dispo - patient will likely require STR, very debilitated. PT eval pending Code status: Had long discussion with patient and his at the bedside. Patient reports wanting to be a full code and at the bedside is in agreement. He would want everything done at this time including intubation and CPR if necessary. MOLST form signed with family at bedside. Patient awake and alert and oriented able to make decisions at this time. Quality Stroke Does the patient have a stroke diagnosis?: No VTE Prior VTE?: No VTE Risk Level:: Medical - low VTE Device Contraindication: N/A - Device Ordered VTE Drug Contraindication: N/A - Med Ordered
[2024-02-09] MEDS: Linezolid/D5W 600 MG/300 ML PIGGYBACK 300 MG IV ×2 (09:55→22:00)
[2024-02-09 10:19] LABS: Anion Gap 13 (12-20); Blood Urea Nitrogen 24 mg/dL (9-16); Calcium 8.3 mg/dL (8.4-10.2); Carbon Dioxide 27 mmol/L (22-29); Chloride 101 mmol/L (96-108); Creatinine Clr Calc Pharmacy 91.1; Estimated Glomerular Filt Rate > 60; Glucose Random 222 mg/dL (60-115); Magnesium 2.3 mg/dL (1.6-2.6); Potassium 3.8 mmol/L (3.3-5.1); Sodium 137 mmol/L (135-145)
[2024-02-09] MEDS: dilTIAZem HCL 125 MG in 0.9 % Sodium Chloride 100 ML 10 MG IVCONT (12:53)
--- NOTE | 2024-02-09 14:59 | MHC.CM.PN ---
PT WILL LIKELY BE READY FOR STR SATURDAY HOWEVER, A REFERRAL WAS ALSO MADE TO [place] FOR A HOSPICE INFORMATIONAL INFORMATIONAL CAN BE DONE AT [facility] OR SNF
[2024-02-09] MEDS: Digoxin 0.25 MG TABLET PO ×2 (17:52→22:01)
[2024-02-09] MEDS: Chlorhexidine Gluc Oral Rinse 15 ML MOUTHWASH BUCCAL (22:00)
[2024-02-09] MEDS: Loperamide HCl 2 MG CAPSULE PO (22:02)
[2024-02-09] MEDS: traZODone HCL 25 MG HALFTAB PO (22:02)
[2024-02-09] MEDS: dilTIAZem HCL 125 MG in 0.9 % Sodium Chloride 100 ML 15 MG IVCONT (22:25)
[2024-02-10] VITALS (11 sets, daily range): BP systolic 102–127; BP diastolic 56–76; PULSE 51–102; RESP 16–20; TEMP 36–36.9; O2SAT 90–100; BMI 30.5
[2024-02-10 06:28] LABS: Hematocrit 28.4 % (42.0-52.0); Hemoglobin 9.7 g/dl (14.0-18.0); Mean Corpuscular HGB Conc 34.2 g/dl (31.0-36.0); Mean Corpuscular Hemoglobin 30.7 pg (27.0-33.0); Mean Corpuscular Volume 89.9 fL (80.0-98.0); Mean Platelet Volume 10.3 fL (9.4-12.4); NRBC Pct Auto 0.2 /100WBC (0.0-0.2); Platelet Count 98 X10*3/uL (160-400); Red Blood Count 3.16 X10*6/uL (4.60-5.80); White Blood Count 10.6 X10*3/uL (4.8-10.8)
[2024-02-10 06:42] LABS: Anion Gap 11 (12-20); Blood Urea Nitrogen 23 mg/dL (9-16); Calcium 8.4 mg/dL (8.4-10.2); Carbon Dioxide 27 mmol/L (22-29); Chloride 103 mmol/L (96-108); Creatinine Clr Calc Pharmacy 93.5; Estimated Glomerular Filt Rate > 60; Glucose Random 196 mg/dL (60-115); Potassium 3.9 mmol/L (3.3-5.1); Sodium 137 mmol/L (135-145)
--- NOTE | 2024-02-10 07:00 | CA_ITS ---
Transthoracic Echocardiogram Patient (Last, First, Middle): Ulises Myrick J Gender: Male Date of : 1950 Age: 73 Procedure Date: 02/10/2024 Procedure Type: Transthoracic Echocardiogram Location: [facility] Height: 172.72 cm Weight: 90.72 kg BSA: 2.04 m2 Heart Rate: bpm BP: 102 / 61 mmHg Body Engineer: BECKI Referring MD: Maile SALGADO Symptoms: afib Study Quality: Adequate ECG Rhythm: Sinus Conclusions: - The left ventricular systolic function is normal. The calculated ejection fraction is 69% by biplane method. - Aortic valve sclerosis, but no significant stenosis. - No obvious valvular pathology seen on this study. Findings Left Ventricle Normal left ventricular cavity size. There is mildly increased left ventricular wall thickness. The left ventricular systolic function is normal. The calculated ejection fraction is 69% by biplane method. There is no evidence of regional wall motion abnormalities. Evidence suggests grade I (mild) diastolic dysfunction. There is moderate septal asymmetric hypertrophy. Right Ventricle Mildly increased right ventricular cavity size. There is normal right ventricular systolic function. Atria The left atrium is mildly dilated. The right atrium is normal in size. Aortic Valve There is mild calcification of the aortic valve. No significant aortic stenosis. Trace to mild aortic regurgitation. Mitral Valve The mitral valve appears normal. There is trace mitral valve regurgitation. There is no mitral valve stenosis. Pulmonic Valve The pulmonic valve is likely normal. Tricuspid Valve There is trace tricuspid valve regurgitation. There is no evidence of pulmonary hypertension. Great Vessels The asc aorta is normal in size. Venous The inferior vena cava was not well visualized. Pericardium/Pleural There is no evidence of pericardial effusion. Prior Study Comparison No prior study available for comparison. Recommendations, Care & Conclusions No obvious valvular pathology seen on this study. Measurements 2D Linear Measurements IVSd: 1.21 0.6-0.9/0.6-1.0 cm LVIDd: 4.58 3.9-5.3/4.2-5.9 cm LVIDd Index: 2.25 2.4-3.2/2.2-3.1 cm/m2 LVIDs: 2.50 2.0-3.6 cm LVPWd: 1.36 0.7-1.1 cm Ao Root: 4.00 2.1-3.5 cm LA Diam: 4.30 2.7-3.8/3.0-4.0 cm LAIDs Index: 2.11 1.5-2.3 cm/m2 LV Mass: 280.23 67-162/88-224 g LV Mass Index: 137.37 43-95/49-115 g/m2 LVOT Diam: 2.00 3.0+(-)1.3 cm 2D Systolic Function EF 4C: 69.90 >55% EF 2C: 69.70 >55% EF BiP: 68.60 >55% Mitral Valve MV Pk E: 0.76 MV PK A: 1.03 MV Decel Time: 295.00 E/A: 0.70 E'Lateral: 7.62 E'Medial: 4.90 E/E' Med: 15.50 E/E' Lat: 10.00 PHT: 86.00 MVA PHT: 2.56 Decel Kinney: 2.58 Aortic Valve AoV Pk Dwayne: 2.07 AoV Mn Dwayne: 1.27 AoV VTI: 0.42 AoV Pk Grad: 17.00 Aov Mn Grad: 8.00 PATRICA Cont.VTI: 1.87 AI Pk Dwayne: 3.44 AI Kinney: 1.57 LVOT LVOT Pk Dwayne: 1.09 LVOT Mn Dwayne: 0.73 LVOT VTI: 0.25 LVOT Pk Grad: 5.00 LVOT Mn Grad: 2.00 LVOT Diam: 2.00 LVOT Area: 3.14 Diastolic Function MV Pk E: 0.76 MV Pk A: 1.03 E/A: 0.70 E'Medial: 4.90 E/E' Med: 15.50 E' Laterial: 7.62 E/E' Lat: 10.00 Right Ventricle TAPSE (mm): 22.00 TVS' Dwayne: 16.00 Tricuspid Valve TR Pk Dwayne: 2.00 TR Pk Grad: 16.00 RA Press: 3.00 RVSP: 19.00 Great Vessels Aorta Ao Root-2D: 4.00 2.0-3.7 cm Ao Asc: 3.70 2.1-3.4 cm Pulmonary Valve PV Pk Dwayne: 1.14 Peak PV Grad: 5.00 Updated in Other Vendor System with Status of Final Bobby Shirley MD electronically signed on 02/10/2024 1:24:54 PM with status of Final
--- NOTE | 2024-02-10 07:30 | PC.NURSE ---
Assumed care of patient during the paediatric thoracic physician. Patient is AAOX4. Patient c/o discomfort with the CPAP and asked to return to the oxymask a 3 lO2. Rectal tube in place. 450 ml of black liquid stool emptied. Patient assisted with incontinence care., turning and repositioning. Cardizem drip stopped around 0535. HR 55-70. AFIB on tele monitor. No signs of acute distress noted.
[2024-02-10] MEDS: Chlorhexidine Gluc Oral Rinse 15 ML MOUTHWASH BUCCAL ×3 (08:37→21:17)
[2024-02-10] MEDS: 0.9 % Sodium Chloride Flush 3 ML SYRINGE IVFLUSH ×3 (08:37→23:35)
[2024-02-10] MEDS: methylPREDNISolone Sod Succ 125 MG/2 ML VIAL 40 MG IVPUSH (08:37)
[2024-02-10] MEDS: allopurinoL 100 MG TABLET 200 MG PO (08:38)
[2024-02-10] MEDS: Atorvastatin Calcium 40 MG TABLET PO (08:38)
[2024-02-10] MEDS: amLODIPine Besylate 10 MG TABLET PO (08:38)
[2024-02-10] MEDS: Metoprolol Tartrate 25 MG TABLET PO ×2 (08:38→21:18)
[2024-02-10] MEDS: Linezolid/D5W 600 MG/300 ML PIGGYBACK 300 MG IV ×2 (09:00→21:17)
--- NOTE | 2024-02-10 10:11 | PM.CNCAR ---
History of Present Illness History of Present Illness Date of Service: 02/10/24 Chief complaint: Acute hypoxic respiratory failure Narrative: This is a cardiology consultation regarding atrial fibrillation. Per chart, many comorbidities including interstitial lung disease, supplemental oxygen use, COVID infection, hypoxic, hypotensive, requiring pressors, GI bleed, recurrent blood transfusions. In this context, thought to have had SVT versus atrial fibrillation. Hence we are consulted. Patient himself looks quite weak and accompanied by significant other. He denies any prior cardiac issues including coronary disease myocardial infarction or in fact anything cardiac sounding. He does not recall any cardiac specific symptoms at this time. Review of Systems Review of Systems: Yes all other systems are reviewed and are negative Constitutional: Constitutional: Reports as per HPI and Reports no additional constitutional complaints Eyes: Eyes: Reports as per HPI and Denies no additional eye complaints ENT: Denies system reviewed and no additional complaints, except as documented and Reports as per HPI Cardiovascular: Cardiovascular: Reports as per HPI, Reports no additional cardiovascular complaints, Denies acrocyanosis, Denies cool extremities, Denies chest pain, Denies leg edema, Denies lightheadedness, Denies palpitations and Denies dyspnea Respiratory: Respiratory: Reports as per HPI, Denies no additional respiratory complaints and Denies dyspnea Gastrointestinal: Gastrointestinal: Reports as per HPI and Denies no additional gastrointestinal complaints Genitourinary: Genitourinary: Reports no additional male genitourinary complaints and Reports as per HPI Musculoskeletal: Musculoskeletal: Reports no additional musculoskeletal complaints and Reports as per HPI Integumentary/Breasts: Skin/Breast: Reports system reviewed and no additional complaints, except as docu Neurologic: Reports system reviewed and no additional complaints, except as documented and Reports as per HPI Psychiatric: Psychiatric: Reports no additional psychiatric complaints and Reports as per HPI Endocrine: Endocrine: Reports no additional endocrine complaints, Reports as per HPI and Denies palpitations Hematologic/Lymphatic: Hematologic/Lymphatic: Reports no additional hematologic/lymphatic complaints and Reports as per HPI Allergic/Immunologic: Allergic/Immunologic: Reports no additional allergic/immunologic complaints and Reports as per HPI [facility] Family History Pertinent family history: No pertinent family history Social History Social History (Updated 09/26/23 @ 10:12 by MONICO Seay) Household Members: Family Housing: House Do you presently have visiting nurse or other home services: No Patient Tobacco Use Status: Tobacco use Unknown Years Smoked: quit 30+ years ago Advance Directives Date on File: 02/04/24 service: No Meds Allergies Allergy/AdvReac Type Severity Reaction Status Date / Time No Known Allergies Allergy Verified 02/04/24 09:41 Active Medications: Current Medications Allopurinol (Allopurinol 100 Mg Tablet) 200 mg PO DAILY [facility] Last Admin: 02/10/24 08:38 Dose: 200 mg Amlodipine Besylate (Amlodipine Besylate 10 Mg Tablet) 10 mg PO DAILY [facility]; Protocol Last Admin: 02/10/24 08:38 Dose: 10 mg Atorvastatin Calcium (Atorvastatin Calcium 40 Mg Tablet) 40 mg PO DAILY [facility] Last Admin: 02/10/24 08:38 Dose: 40 mg Chlorhexidine Gluconate (Chlorhexidine Gluc Oral Rinse 15 Ml Mouthwash) 15 ml BUCCAL TID [facility] Last Admin: 02/10/24 08:37 Dose: 15 ml Linezolid (Zyvox/D5w) 600 mg in 300 mls @ 300 mls/hr IV Q12H [facility] Last Admin: 02/10/24 09:00 Dose: 300 mls/hr Diltiazem HCl 125 mg/ Sodium (Chloride) 125 mls @ 0 mls/hr IVCONT .Q0M [facility]; Protocol Last Titration: 02/10/24 05:57 Dose: 0 mg/hr, 0 mls/hr Loperamide HCl (Loperamide Hcl 2 Mg Capsule) 2 mg PO Q6H PRN PRN Reason: Diarrhea Last Admin: 02/09/24 22:02 Dose: 2 mg Methylprednisolone Sodium Succinate (Methylprednisolone Sod Succ 125 Mg/2 Ml Vial) 40 mg IVPUSH Q24H [facility] Last Admin: 02/10/24 08:37 Dose: 40 mg Metoprolol Tartrate (Metoprolol Tartrate 25 Mg Tablet) 25 mg PO BID [facility]; Protocol Last Admin: 02/10/24 08:38 Dose: 25 mg Sodium Chloride (0.9 % Sodium Chloride Flush 3 Ml Syringe) 3 ml IVFLUSH QSHIFT [facility] Last Admin: 02/10/24 08:37 Dose: 3 ml Trazodone HCl (Trazodone Hcl 25 Mg Halftab) 25 mg PO BEDTIME MRX1 PRN PRN Reason: Insomnia Last Admin: 02/09/24 22:02 Dose: 25 mg Home Medications ?Medication ?Instructions ?Recorded ?Confirmed ?Last Taken ?Type allopurinol 100 mg tablet 200 mg PO DAILY 11/18/20 02/04/24 02/03/24 History amlodipine 10 mg tablet 10 mg PO DAILY 11/18/20 02/04/24 02/03/24 History atorvastatin 40 mg tablet 40 mg PO DAILY 11/18/20 02/04/24 02/03/24 History benazepril 10 1 tab PO DAILY 11/18/20 02/04/24 02/03/24 History mg-hydrochlorothiazide 12.5 mg tablet calcium carbonate 500 mg PO DAILY 02/04/24 02/04/24 02/03/24 History cholecalciferol (vitamin D3) 50 50 mcg PO DAILY 02/04/24 02/04/24 02/03/24 History mcg (2,000 unit) tablet (Vitamin D3) doxycycline monohydrate 100 mg 100 mg PO BIDWM 02/04/24 02/04/24 02/03/24 History capsule prednisone 10 mg tablet See Taper PO DAILY 02/04/24 02/04/24 02/03/24 History Physical Exam Vital Signs: Vital Signs: Last Vital Signs Temp 97.1 F 02/10/24 07:54 Pulse 52 02/10/24 07:54 Resp 20 02/10/24 07:54 BP 125/60 02/10/24 07:54 Pulse Ox 99 02/10/24 07:54 O2 Del Method Oxymask 02/10/24 07:00 O2 Flow Rate 3 02/10/24 04:00 FiO2 25 02/06/24 12:00 Oxygen Flow Rate 3 02/10/24 07:00 BMI result Body Mass Index 30.5 Const: General: comfortable, no acute distress, ill appearing, lethargic and tired appearing Orientation/consciousness: patient oriented x3 and lethargic HEENT: Other: Unremarkable Head: Yes normal to inspection Neck: Neck: Yes normal visual inspection Chest: Chest palpation & inspection: normal inspection of the chest Resp: Other: Inspiratory crackles Cardio: Palpation: normal PMI Heart sounds: S1 normal heart sound present, S2 normal heart sound present, no gallops, no murmurs and no rubs GI: Palpation (GI): Soft to palpation Back/Spine/Pelvis: Other: unremarkable Skin: General skin exam: no rashes or lesions noted Neuro: General: patient oriented x3 Extrem: General: Yes normal to inspection Psych: Mental Status: mental status grossly normal Objective Labs and Meds 02/10/24 06:14 02/10/24 06:14 Lab results: Laboratory Results - last 24 hr 02/09/24 02/10/24 09:40 06:14 WBC 10.6 RBC 3.16 L Hgb 9.7 L Hct 28.4 L MCV 89.9 MCH 30.7 MCHC 34.2 RDW 14.0 Plt Count 98 L MPV 10.3 Absolute Nucleated RBC 0.020 H Nucleated RBC % (auto) 0.2 Sodium 137 137 Potassium 3.8 D 3.9 Chloride 101 103 Carbon Dioxide 27 27 Anion Gap 13 11 L BUN 24 H 23 H Creatinine 0.77 0.77 Estim Creat Clear Calc 91.1 93.5 Estimated GFR > 60 > 60 Random Glucose 222 H 196 H Calcium 8.3 L D 8.4 Magnesium 2.3 ECG Interpretation: EKG with atrial fibrillation at a rate of 133/Min. Currently, in sinus rhythm. Admission EKG seems to be sinus tachycardia. Assessment and Plan (1) Atrial fibrillation with RVR: Status: Acute (2) COVID-19: Status: Acute (3) Acute blood loss anemia: Status: Acute (4) Lower GI bleed: Status: Acute (5) Supplemental oxygen dependent: Status: Acute (6) Interstitial pulmonary fibrosis: Status: Acute Plan [facility] Cardiology notes reviewed. He is followed up as an outpatient in their clinic. Echocardiogram from last year with LVEF of 55-60%, normal RV size and function and no significant valvular findings. CT chest noted to have moderate coronary calcification and ascending aortic size 3.9 cm. Holter had shown underlying sinus rhythm with supraventricular and ventricular ectopy. At that time, it was felt that his shortness of breath was more from pulmonary reasons than cardiac. He was recommended low-dose aspirin and statins for the coronary disease. At this time, atrial fibrillation seems to be related to ongoing acute medical issues. On telemetry, he is already back to normal sinus rhythm. Can switch the IV drip to oral diltiazem. Stop the amlodipine. Due to acute GI bleed issues, may hold anticoagulation unless recurrent issues. Echocardiogram is pending. Discussed with significant other. Procedures Date of Service Date of Service: 02/10/24
--- NOTE | 2024-02-10 10:17 | MHC.CM.PN ---
Addendum entered by Roselyn Arthur 02/10/24 14:48: PT EVAL RECOMMENDING ACUTE REHAB REFERRALS MADE Addendum entered by Roselyn Arthur 02/10/24 10:22: GENESIS QUINONES AND BERTIN ARE FOLLOWING PENDING APPROPRIATE PT EVAL RESULTS Original Note: PER MD ROUNDS, PT WILL NOT BE MEDICALLY CLEARED TO DC TODAY PT/FAMILY EXPRESSED INTEREST IN HOSPICE PREVIOUSLY, HOWEVER PT HAS DECIDED TO STAY FULL CODE PT EVAL PENDING TO DETERMINE DCP, STR IS EXPECTED TO BE NEEDED REFERRALS ARE OUT FOR STR AND HOSPICE INFORMATIONAL
--- NOTE | 2024-02-10 11:44 | HO.PM.IMPN ---
Subjective Subjective Date of Service: 02/10/24 Interval History: seen and examined this morning follow up for respiratory failure, GI bleeding still with some cough, but pt and family report this is chronic reports breathing is better hasn't gotten out of bed converted to afib rvr this am, thus far asymptomatic Review of Systems Review of Systems: Yes all other systems are reviewed and are negative Constitutional Constitutional: Denies chills and Denies fever(s) ENT Ears, Nose, Mouth, and Throat: Denies dizziness Cardiovascular Cardiovascular: Denies chest pain and Denies palpitations Respiratory Respiratory: Reports cough Gastrointestinal Gastrointestinal: Denies abdominal pain, Reports diarrhea, Denies nausea and Denies vomiting Neurologic Neurologic: Denies dizziness Endocrine Endocrine: Denies palpitations Physical Exam Vital Signs: Vital Signs: Last Vital Signs Temp 97.1 F 02/10/24 07:54 Pulse 52 02/10/24 07:54 Resp 20 02/10/24 07:54 BP 125/60 02/10/24 07:54 Pulse Ox 99 02/10/24 07:54 O2 Del Method Oxymask 02/10/24 07:00 O2 Flow Rate 3 02/10/24 04:00 FiO2 25 02/06/24 12:00 Oxygen Flow Rate 3 02/10/24 07:00 BMI result Body Mass Index 30.5 Appearing in no acute distress lung sounds are clear to auscultation heart regular rate rhythm, clear S1, S2 positive bowel sounds, abdomen is soft, nontender neuro patient is alert x3, no focal deficits Objective Data Active Medications Allopurinol (Allopurinol 100 Mg Tablet) 200 mg PO DAILY [facility] Last Admin: 02/10/24 08:38 Dose: 200 mg Documented By: ADALGISA Amlodipine Besylate (Amlodipine Besylate 10 Mg Tablet) 10 mg PO DAILY [facility]; Protocol Last Admin: 02/10/24 08:38 Dose: 10 mg Documented By: ADALGISA Atorvastatin Calcium (Atorvastatin Calcium 40 Mg Tablet) 40 mg PO DAILY [facility] Last Admin: 02/10/24 08:38 Dose: 40 mg Documented By: ADALIGSA Chlorhexidine Gluconate (Chlorhexidine Gluc Oral Rinse 15 Ml Mouthwash) 15 ml BUCCAL TID [facility] Last Admin: 02/10/24 08:37 Dose: 15 ml Documented By: ADALGISA Linezolid (Zyvox/D5w) 600 mg in 300 mls @ 300 mls/hr IV Q12H [facility] Last Infusion: 02/10/24 10:20 Dose: Infused Documented By: ADALGISA Diltiazem HCl 125 mg/ Sodium (Chloride) 125 mls @ 0 mls/hr IVCONT .Q0M [facility]; Protocol Last Titration: 02/10/24 05:57 Dose: 0 mg/hr, 0 mls/hr Documented By: SHAHRZAD Loperamide HCl (Loperamide Hcl 2 Mg Capsule) 2 mg PO Q6H PRN PRN Reason: Diarrhea Last Admin: 02/09/24 22:02 Dose: 2 mg Documented By: SHAHRZAD Methylprednisolone Sodium Succinate (Methylprednisolone Sod Succ 125 Mg/2 Ml Vial) 40 mg IVPUSH Q24H [facility] Last Admin: 02/10/24 08:37 Dose: 40 mg Documented By: ADALGISA Metoprolol Tartrate (Metoprolol Tartrate 25 Mg Tablet) 25 mg PO BID [facility]; Protocol Last Admin: 02/10/24 08:38 Dose: 25 mg Documented By: ADALGISA Sodium Chloride (0.9 % Sodium Chloride Flush 3 Ml Syringe) 3 ml IVFLUSH QSHIFT [facility] Last Admin: 02/10/24 08:37 Dose: 3 ml Documented By: ADALGISA Trazodone HCl (Trazodone Hcl 25 Mg Halftab) 25 mg PO BEDTIME MRX1 PRN PRN Reason: Insomnia Last Admin: 02/09/24 22:02 Dose: 25 mg Documented By: SHAHRZAD Labs 02/10/24 06:14 02/10/24 06:14 Labs: Laboratory Results - last 24 hr 02/10/24 06:14 MCV 89.9 MCH 30.7 MCHC 34.2 RDW 14.0 Plt Count 98 L MPV 10.3 Absolute Nucleated RBC 0.020 H Nucleated RBC % (auto) 0.2 Anion Gap 11 L Estim Creat Clear Calc 93.5 Estimated GFR > 60 Random Glucose 196 H Calcium 8.4 Microbiology Microbiology Results: Microbiology 02/07/24 09:55 Blood Culture - Preliminary Blood - Venous No growth after 48 hours. 02/07/24 09:35 Blood Culture - Preliminary Blood - Venous No growth after 48 hours. Assessment and Plan (1) Bacteremia: Status: Acute (2) Acute blood loss anemia: Status: Acute (3) Atrial fibrillation with RVR: Status: Acute Plan This is a 73-year-old male with 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 Extubated 02/05 and downgraded to medical floor 02/07. SVT/afib On the initial day of admission treated with cardizem, was rate controlled on metoprolol went into afib with rvr am of 02/08 echo pending cardiology following Back in NSR, IV cardizem stopped, 120mg oral cardizem started Acute on chronic hypoxemic respiratory failure due to progression of interstitial lung disease, recent covid infection Extubated 02/05 Continue to wean steroids hypokalemia Resolved with replacement Acute toxic metablic encephalopathy likely due to delirium improving Acute blood loss anemia/hemorrhagic shock due to acute lower GI bleeding s/p vasopressor support in ICU Status post IR guided embolization of the inferior mesenteric artery at lower descending colon at the junction of sigmoid colon x2 s/p multiple blood transfusions, no further bleeding noted H/H stable today Hypertension continue metoprolol stop amlodipine per cardio Benazepril-hydrochlorothiazide on hold bacteremia, polymicrobial Blood cultures from central line growing three bacterias possibly a contaminant; repeat cultures negative UA negative was on zosyn and zyvox (started 02/03) for ? lower left leg cellulitis - will stop zosyn continue IV zyvox. will likely need two weeks of antibiotics probable IV with midline - will consult ID Thrombocytopenia Likely dilutional from numerous blood transfusions dvt PPx-SCD due to GI bleeding/anemia Attending Dr. Carson dispo - PT rec STR, acute Code status: Had long discussion with patient and his at the bedside. Patient reports wanting to be a full code and at the bedside is in agreement. He would want everything done at this time including intubation and CPR if necessary. MOLST form signed with family at bedside. Patient awake and alert and oriented able to make decisions at this time. Quality Stroke Does the patient have a stroke diagnosis?: No VTE Prior VTE?: No VTE Risk Level:: Medical - low VTE Device Contraindication: N/A - Device Ordered VTE Drug Contraindication: N/A - Med Ordered
--- NOTE | 2024-02-10 17:19 | HO.WOUND ---
Wound Consult: Initial 73yr old?male admitted to [facility] on 02/04/24 - See progress notes and H&P for detailed history.? Wound consult placed for Right foot wound present on admission.? Patient agreeable to assessment and photo documentation.? Patient and his note he has the two calluses to the right and left great toes and he has seen podiatry in the past but reports he has not seen them in someone. He reports the callused sites do not drainage nor cause him discomfort. His at bedside reports the left leg was of more concern but has since resolved. The left leg is noted for several scabbed wound beds with on lateral open site. The reports the patient was treated by dermatology for the leg. She can not recall the topical treatment but describes a cellulitis episode. Recommend topical xeroform to allow for autolytic debridement and moist wound healing. Left great toe callus - intact Right Great Toe -callus intact Left lateral leg wound Recommendations: 1. Turn and Reposition every 2 hours and as needed for patient comfort.? Use pillows or wedges to support off loading positions. 2. Off Load all bony prominences with use of pillows and heel boots if needed.? Apply Preventative foams where needed. ? 3. Monitor for incontinence and moisture control, use barrier creams when needed for prevention and treatment. 4. Provide adequate and supplemental nutrition.? 5. Continue low air loss mattress. 6. When applicable maintain blood glucose levels per Providers order. 7. Arms and Left lateral leg - Cleanse with normal saline, pat dry. ?Apply Xeroform secure with Abd pads, gauze wrap and tape. ?Do not apply tape to patient?s skin.? Avoid Adhesive application to skin - when necessary, apply skin prep prior.? 8. Bilateral callus to great toes - no topical interventions needed at this time. Re-consult wound care Nurse for wound deterioration or wound changes.
[2024-02-10] MEDS: traZODone HCL 25 MG HALFTAB PO (21:18)
[2024-02-10] MEDS: Loperamide HCl 2 MG CAPSULE PO (21:18)
[2024-02-11] VITALS (10 sets, daily range): BP systolic 126–155; BP diastolic 67–90; PULSE 69–109; RESP 18–20; TEMP 36.1–36.7; O2SAT 82–99; BMI 26.9
--- NOTE | 2024-02-11 10:21 | HO.PM.IMPN ---
Subjective Subjective Date of Service: 02/11/24 Interval History: seen and examined this morning follow up for respiratory failure, GI bleeding reports breathing is better hasn't gotten out of bed converted to afib rvr this am, thus far asymptomatic Review of Systems Review of Systems: Yes all other systems are reviewed and are negative Constitutional Constitutional: Denies chills and Denies fever(s) ENT Ears, Nose, Mouth, and Throat: Denies dizziness Cardiovascular Cardiovascular: Denies chest pain and Denies palpitations Respiratory Respiratory: Reports cough Gastrointestinal Gastrointestinal: Denies abdominal pain, Reports diarrhea, Denies nausea and Denies vomiting Neurologic Neurologic: Denies dizziness Endocrine Endocrine: Denies palpitations Physical Exam Vital Signs: Vital Signs: Last Vital Signs Temp 97.3 F 02/11/24 07:19 Pulse 79 02/11/24 07:19 Resp 20 02/11/24 07:19 BP 136/71 02/11/24 07:19 Pulse Ox 92 02/11/24 07:19 O2 Del Method CPAP 02/11/24 07:19 O2 Flow Rate 2 02/10/24 20:00 FiO2 25 02/06/24 12:00 Oxygen Flow Rate 3 02/10/24 07:00 BMI result Body Mass Index 26.9 Objective Data Active Medications Allopurinol (Allopurinol 100 Mg Tablet) 200 mg PO DAILY [facility] Last Admin: 02/10/24 08:38 Dose: 200 mg Documented By: ADALGISA Atorvastatin Calcium (Atorvastatin Calcium 40 Mg Tablet) 40 mg PO DAILY [facility] Last Admin: 02/10/24 08:38 Dose: 40 mg Documented By: ADALGISA Chlorhexidine Gluconate (Chlorhexidine Gluc Oral Rinse 15 Ml Mouthwash) 15 ml BUCCAL TID [facility] Last Admin: 02/10/24 21:17 Dose: 15 ml Documented By: SHAHRZAD Diltiazem HCl (Diltiazem Hcl Cd 120 Mg Cap.Er.Deg) 120 mg PO DAILY [facility]; Protocol Last Admin: 02/10/24 13:18 Dose: Not Given Documented By: ADALGISA Non-Admin Reason: HR=60 Linezolid (Linezolid 600 Mg Tablet) 600 mg PO Q12H [facility] Loperamide HCl (Loperamide Hcl 2 Mg Capsule) 2 mg PO Q6H PRN PRN Reason: Diarrhea Last Admin: 02/10/24 21:18 Dose: 2 mg Documented By: SHAHRZAD Methylprednisolone Sodium Succinate (Methylprednisolone Sod Succ 125 Mg/2 Ml Vial) 40 mg IVPUSH Q24H [facility] Last Admin: 02/10/24 08:37 Dose: 40 mg Documented By: ADALGISA Metoprolol Tartrate (Metoprolol Tartrate 25 Mg Tablet) 25 mg PO BID [facility]; Protocol Last Admin: 02/10/24 21:18 Dose: 25 mg Documented By: SHAHRZAD Sodium Chloride (0.9 % Sodium Chloride Flush 3 Ml Syringe) 3 ml IVFLUSH QSHIFT [facility] Last Admin: 02/10/24 23:35 Dose: 3 ml Documented By: SHAHRZAD Trazodone HCl (Trazodone Hcl 25 Mg Halftab) 25 mg PO BEDTIME MRX1 PRN PRN Reason: Insomnia Last Admin: 02/10/24 21:18 Dose: 25 mg Documented By: SHAHRZAD Labs 02/10/24 06:14 02/10/24 06:14 Assessment and Plan (1) Bacteremia: Status: Acute (2) Acute blood loss anemia: Status: Acute (3) Atrial fibrillation with RVR: Status: Acute Plan This is a 73-year-old male with 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 Extubated 02/05 and downgraded to medical floor 02/07. SVT/afib On the initial day of admission treated with cardizem, was rate controlled on metoprolol went into afib with rvr 02/08 echo normal EF, no wma cardiology following Back in NSR, IV cardizem stopped, 120mg oral cardizem started Acute on chronic hypoxemic respiratory failure due to progression of interstitial lung disease, recent covid infection Extubated 02/05 Continue to wean steroids hypokalemia Resolved with replacement Acute toxic metablic encephalopathy likely due to delirium improving Acute blood loss anemia/hemorrhagic shock due to acute lower GI bleeding s/p vasopressor support in ICU Status post IR guided embolization of the inferior mesenteric artery at lower descending colon at the junction of sigmoid colon x2 s/p multiple blood transfusions, no further bleeding noted H/H stable today Hypertension continue metoprolol stop amlodipine per cardio Benazepril-hydrochlorothiazide on hold bacteremia, polymicrobial Blood cultures from central line growing three bacterias possibly a contaminant; repeat cultures negative UA negative was on zosyn and zyvox (started 02/03) for ? lower left leg cellulitis - will stop zosyn continue IV zyvox. will likely need two weeks of antibiotics probable IV with midline - will consult ID Thrombocytopenia Likely dilutional from numerous blood transfusions dvt PPx-SCD due to GI bleeding/anemia Attending Dr. Carson Full code dispo - PT rec STR, acute Quality Stroke Does the patient have a stroke diagnosis?: No VTE Prior VTE?: No VTE Risk Level:: Medical - low VTE Device Contraindication: N/A - Device Ordered VTE Drug Contraindication: N/A - Med Ordered
[2024-02-11] MEDS: Metoprolol Tartrate 25 MG TABLET PO ×2 (10:42→20:13)
[2024-02-11] MEDS: Linezolid 600 MG TABLET PO (10:42)
[2024-02-11] MEDS: dilTIAZem HCL CD 120 MG CAP.ER.DEG PO (10:42)
[2024-02-11] MEDS: Atorvastatin Calcium 40 MG TABLET PO (10:42)
[2024-02-11] MEDS: methylPREDNISolone Sod Succ 125 MG/2 ML VIAL 40 MG IVPUSH (10:43)
[2024-02-11] MEDS: Chlorhexidine Gluc Oral Rinse 15 ML MOUTHWASH BUCCAL ×2 (10:43→14:18)
[2024-02-11] MEDS: allopurinoL 100 MG TABLET 200 MG PO (10:43)
[2024-02-11] MEDS: 0.9 % Sodium Chloride Flush 3 ML SYRINGE IVFLUSH ×3 (14:18→23:13)
--- NOTE | 2024-02-11 15:25 | W.PM.IDCN ---
History of Present Illness Data of Consult Service Date: 02/10/24 Requesting physician: Luci Hui Primary Care Provider: NAOMI Castellanos HPI Reason for consult: bacteremia He presents on 02/03 to ER after slumping to floor at home. He has ILD and is on home oxygen. He had acute mental status changes and then hypotension with blood pressure 80/53. He had pulse 120s and no fever and oxygen saturation 90s. He was transferred to ICU and intubated. He was started on Vancomycin and Cefepime for LLE cellulitis. He had negative ua and CXR no acute lobar infiltrates. He was found to have GI bleed and embolizaion EDWARD on ,02/04. He was switched to linezolid and continued Cefepime. He had blood cultures drawn by premises technician from central line inserted into right groin which showed MSSA and enterococcus faecalis mentioned in chart as contaminant. Review of Systems Review of Systems: Yes all other systems are reviewed and are negative PMFSH Family History Family history: reviewed and not pertinent Social History Social History Household Members: Family Housing: House Do you presently have visiting nurse or other home services: No Patient Tobacco Use Status: Tobacco use Unknown Years Smoked: quit 30+ years ago Advance Directives Date on File: 02/04/24 service: No Meds Allergies Allergy/AdvReac Type Severity Reaction Status Date / Time No Known Allergies Allergy Verified 02/04/24 09:41 Active Medications: Current Medications Allopurinol (Allopurinol 100 Mg Tablet) 200 mg PO DAILY [facility] Last Admin: 02/11/24 10:43 Dose: 200 mg Atorvastatin Calcium (Atorvastatin Calcium 40 Mg Tablet) 40 mg PO DAILY [facility] Last Admin: 02/11/24 10:42 Dose: 40 mg Chlorhexidine Gluconate (Chlorhexidine Gluc Oral Rinse 15 Ml Mouthwash) 15 ml BUCCAL TID [facility] Last Admin: 02/11/24 14:18 Dose: 15 ml Diltiazem HCl (Diltiazem Hcl Cd 120 Mg Cap.Er.Deg) 120 mg PO DAILY [facility]; Protocol Last Admin: 02/11/24 10:42 Dose: 120 mg Linezolid (Linezolid 600 Mg Tablet) 600 mg PO Q12H [facility] Stop: 02/25/24 09:59 Last Admin: 02/11/24 10:42 Dose: 600 mg Loperamide HCl (Loperamide Hcl 2 Mg Capsule) 2 mg PO Q6H PRN PRN Reason: Diarrhea Last Admin: 02/10/24 21:18 Dose: 2 mg Methylprednisolone Sodium Succinate (Methylprednisolone Sod Succ 125 Mg/2 Ml Vial) 40 mg IVPUSH Q24H [facility] Last Admin: 02/11/24 10:43 Dose: 40 mg Metoprolol Tartrate (Metoprolol Tartrate 25 Mg Tablet) 25 mg PO BID [facility]; Protocol Last Admin: 02/11/24 10:42 Dose: 25 mg Sodium Chloride (0.9 % Sodium Chloride Flush 3 Ml Syringe) 3 ml IVFLUSH QSHIFT [facility] Last Admin: 02/11/24 14:18 Dose: 3 ml Trazodone HCl (Trazodone Hcl 25 Mg Halftab) 25 mg PO BEDTIME MRX1 PRN PRN Reason: Insomnia Last Admin: 02/10/24 21:18 Dose: 25 mg Home Medications ?Medication ?Instructions ?Recorded ?Confirmed ?Last Taken ?Type allopurinol 100 mg tablet 200 mg PO DAILY 11/18/20 02/04/24 02/03/24 History amlodipine 10 mg tablet 10 mg PO DAILY 11/18/20 02/04/24 02/03/24 History atorvastatin 40 mg tablet 40 mg PO DAILY 11/18/20 02/04/24 02/03/24 History benazepril 10 1 tab PO DAILY 11/18/20 02/04/24 02/03/24 History mg-hydrochlorothiazide 12.5 mg tablet calcium carbonate 500 mg PO DAILY 02/04/24 02/04/24 02/03/24 History cholecalciferol (vitamin D3) 50 50 mcg PO DAILY 02/04/24 02/04/24 02/03/24 History mcg (2,000 unit) tablet (Vitamin D3) doxycycline monohydrate 100 mg 100 mg PO BIDWM 02/04/24 02/04/24 02/03/24 History capsule prednisone 10 mg tablet See Taper PO DAILY 02/04/24 02/04/24 02/03/24 History Physical Exam Vital Signs: Vital Signs: Last Vital Signs Temp 97.2 F 02/11/24 11:06 Pulse 105 H 02/11/24 12:30 Resp 20 02/11/24 11:06 BP 138/76 02/11/24 11:06 Pulse Ox 82 L 02/11/24 12:30 O2 Del Method Oxymask 02/11/24 11:06 O2 Flow Rate 2 02/11/24 11:06 FiO2 25 02/06/24 12:00 Oxygen Flow Rate 3 02/10/24 07:00 BMI result Body Mass Index 26.9 Const: General: cooperative HEENT: Head: Yes normal to inspection Face and sinus: Yes normal facial exam Mouth: Normal oral and palatal mucosa present Teeth and gingiva: dentition normal Eyes: General: appearance normal, both eyes and all related structures Pupils: Equal, round and reactive pupils present Resp: Effort & Inspection: normal respiratory effort Cardio: Rate: regular rate Rhythm: regular rhythm GI: Palpation (GI): Soft to palpation and nontender : General: Yes no CVA tenderness Back/Spine/Pelvis: Back: no CVA tenderness Skin: General skin exam: no rashes or lesions noted Neuro: General: moves all extremities Cranial nerves: Yes Equal, round and reactive pupils present Extrem: Other: LLE lower erythema Psych: Appearance: grossly normal Results Labs 02/10/24 06:14 02/10/24 06:14 Microbiology Microbiology Results: Microbiology 02/07/24 09:55 Blood - Venous Blood Culture - Preliminary No growth after 48 hours. 02/07/24 09:35 Blood - Venous Blood Culture - Preliminary No growth after 48 hours. 02/04/24 10:35 Blood - Central Line Blood Culture - Final Enterococcus faecalis Staphylococcus aureus 02/04/24 10:35 Blood - Central Line Blood Culture - Final Staphylococcus aureus Enterococcus faecalis Assessment and Plan (1) COVID-19: Status: Acute (2) Bacteremia: Status: Acute He has groin line cultures at ER labeled blood drawn showing enterococcus faecalis and MSSA. There are no peripheral cultures drawn Repeat peripheral cultures are negative. Echo is negative. These are most likely contaminant but it is impossible to tell as no peripheral cultures taken usual location (antecubital) on 02/03. He has been in ICU and GI bleed and was hospice and now full code. Although most likely contamination would give IV Daptomycin 6mg/kg for three weeks total. CK and creatinine weekly Hold statin while on (3) Lower GI bleed: Status: Acute (4) Respiratory failure: Qualifiers: Chronicity: acute Status: Acute (5) Interstitial pulmonary fibrosis: Status: Acute
--- NOTE | 2024-02-11 18:17 | HO.MIDLINE ---
Midline Insertion MIDLINE INSERTION Diagnosis: Bacteremia Indication: 4wks ABT Pertinent Labs: Reviewed Technique: Using sterile technique including cap and mask, glove and drape, the right arm was prepped and draped in the usual sterile fashion of full barrier technique with CHG. Using ultrasound guidance, right brachial vein access was obtained . 4FR single lumen nonPASV POWER MIDLINE catheter was positioned. The procedure was performed in room 272. Ultrasound was used to document vein patency and for needle entry. A formal ultrasound picture was recorded. Vascular Drying Equipment Operator has released the line for use and it is currently dressed with a StatLock, Tegaderm, and CHG disc. Verification has been performed for blood return and line patency. Patient tolerated procedure well and without complaint of discomfort. Arm Circumference: 27cm Equipment: BARD Power Midline Catheter Catheter Type: 4FR single lumen non PASV catheter Lot #: [id number]
--- NOTE | 2024-02-11 18:39 | PC.NURSE ---
Rectal tube removed at 15:20 without issue.
[2024-02-11] MEDS: DAPTOmycin 500 MG in 0.9 % Sodium Chloride 50 ML 100.61 MG IV (20:13)
[2024-02-12] VITALS (8 sets, daily range): BP systolic 116–145; BP diastolic 67–76; PULSE 56–88; RESP 16–20; TEMP 36.1–36.5; O2SAT 92–97
[2024-02-12] MEDS: 0.9 % Sodium Chloride Flush 3 ML SYRINGE IVFLUSH ×4 (08:51→20:54)
[2024-02-12] MEDS: dilTIAZem HCL CD 120 MG CAP.ER.DEG PO (08:54)
[2024-02-12] MEDS: methylPREDNISolone Sod Succ 125 MG/2 ML VIAL 40 MG IVPUSH (08:54)
[2024-02-12] MEDS: Metoprolol Tartrate 25 MG TABLET PO ×2 (08:54→20:54)
[2024-02-12] MEDS: allopurinoL 100 MG TABLET 200 MG PO (08:54)
--- NOTE | 2024-02-12 10:31 | PM.PNCARD ---
Subjective Subjective Date of Service: 02/12/24 Interval history: No new cardiac symptoms. Generally weak but otherwise okay. Review of Systems Review of Systems Yes all other systems are reviewed and are negative Constitutional: Reports as per HPI and Reports no additional constitutional complaints Eyes: Reports as per HPI and Denies no additional eye complaints Denies system reviewed and no additional complaints, except as documented and Reports as per HPI Cardiovascular: Reports as per HPI, Reports no additional cardiovascular complaints, Denies acrocyanosis, Denies cool extremities, Denies chest pain, Denies leg edema, Denies lightheadedness, Denies palpitations and Denies dyspnea Respiratory: Reports as per HPI, Denies no additional respiratory complaints and Denies dyspnea Gastrointestinal: Reports as per HPI and Denies no additional gastrointestinal complaints Genitourinary: Reports no additional male genitourinary complaints and Reports as per HPI Musculoskeletal: Reports no additional musculoskeletal complaints and Reports as per HPI Skin/Breast: Reports system reviewed and no additional complaints, except as docu Reports system reviewed and no additional complaints, except as documented and Reports as per HPI Psychiatric: Reports no additional psychiatric complaints and Reports as per HPI Endocrine: Reports no additional endocrine complaints, Reports as per HPI and Denies palpitations Hematologic/Lymphatic: Reports no additional hematologic/lymphatic complaints and Reports as per HPI Allergic/Immunologic: Reports no additional allergic/immunologic complaints and Reports as per HPI Physical Exam Vital Signs: Last Vital Signs Temp 97.4 F 02/12/24 07:43 Pulse 61 02/12/24 07:43 Resp 16 02/12/24 07:43 BP 134/76 02/12/24 07:43 Pulse Ox 96 02/12/24 07:43 O2 Del Method Oxymask 02/12/24 07:43 O2 Flow Rate 92 02/12/24 03:33 FiO2 25 02/06/24 12:00 Oxygen Flow Rate 3 02/12/24 07:00 BMI result Body Mass Index 26.9 Const General: comfortable, no acute distress, ill appearing, lethargic and tired appearing Orientation/consciousness: patient oriented x3 and lethargic HEENT Other: Unremarkable Head: Yes normal to inspection Neck Neck: Yes normal visual inspection Chest Chest palpation & inspection: normal inspection of the chest Resp Other: Inspiratory crackles Cardio Palpation: normal PMI Heart sounds: S1 normal heart sound present, S2 normal heart sound present, no gallops, no murmurs and no rubs GI Palpation (GI): Soft to palpation Back/Spine/Pelvis Other: unremarkable Skin General skin exam: no rashes or lesions noted Neuro General: patient oriented x3 Extrem General: Yes normal to inspection Psych Mental Status: mental status grossly normal Objective Labs and Meds 02/10/24 06:14 02/10/24 06:14 Progress Note: A&P Assessment and plan (1) Atrial fibrillation with RVR: Status: Acute (2) NSVT (nonsustained ventricular tachycardia): Status: Acute (3) COVID-19: Status: Acute (4) Acute blood loss anemia: Status: Acute (5) Lower GI bleed: Status: Acute (6) Supplemental oxygen dependent: Status: Acute (7) Interstitial pulmonary fibrosis: Status: Acute Plan [facility] Cardiology notes reviewed. He is followed up as an outpatient in their clinic. Echocardiogram from last year with LVEF of 55-60%, normal RV size and function and no significant valvular findings. CT chest noted to have moderate coronary calcification and ascending aortic size 3.9 cm. Holter had shown underlying sinus rhythm with supraventricular and ventricular ectopy. At that time, it was felt that his shortness of breath was more from pulmonary reasons than cardiac. He was recommended low-dose aspirin and statins for the coronary disease. Currently, on telemetry there is no further atrial fibrillation. There is a 25 beat run of monomorphic NSVT. In the repeat echocardiogram, LVEF is 69%. Mild diastolic dysfunction. Aortic valve sclerosis. Findings discussed with patient and significant other. Considering his many comorbidities, not suitable for any ischemia workup at this time. Also monomorphic NSVT is generally nonischemic. Could be related to ongoing medical issues. He is on beta-blockers and diltiazem and that can be continued. If recurrent atrial fibrillation, we can consider anticoagulation but there is also recent GI bleeding issue and hence hold. Time Spent With Patient Time: Total time managing care of this patient today ____ minutes. Progress Note: Quality Stroke Does the patient have a stroke diagnosis?: No Procedures Date of Service Date of Service: 02/12/24
--- NOTE | 2024-02-12 13:59 | HO.PM.IMPN ---
Subjective Subjective Date of Service: 02/12/24 Interval History: Being followed for acute hypoxic respiratory failure, complaining of chest congestion unable to bring up cough, denies chest pain, no palpitations Generally feel tired. Patient noted to have 25 beat run of monomorphic NSVT on tele monitor Review of Systems All other system reviewed and are negative Physical Exam Vital Signs: Vital Signs: Last Vital Signs Temp 97.4 F 02/12/24 11:34 Pulse 88 02/12/24 11:34 Resp 17 02/12/24 11:34 BP 116/70 02/12/24 11:34 Pulse Ox 96 02/12/24 11:34 O2 Del Method Nasal Cannula 02/12/24 11:34 O2 Flow Rate 3 02/12/24 11:34 FiO2 25 02/06/24 12:00 Oxygen Flow Rate 3 02/12/24 07:00 BMI result Body Mass Index 26.9 Const: Other: General resting comfortably in no acute distress. Neck no JVD. CVS regular rate rhythm, Respiratory lungs bilateral basilar dry crackles Gastrointestinal abdomen soft, non tender, bowel sounds audible, Extremities no edema. Neuro non focal Skin no rash Psych appropriate affect Objective Data Active Medications Allopurinol (Allopurinol 100 Mg Tablet) 200 mg PO DAILY [facility] Last Admin: 02/12/24 08:54 Dose: 200 mg Documented By: PAVEL Chlorhexidine Gluconate (Chlorhexidine Gluc Oral Rinse 15 Ml Mouthwash) 15 ml BUCCAL TID [facility] Last Admin: 02/12/24 08:51 Dose: Not Given Documented By: PAVEL Non-Admin Reason: not ICU Diltiazem HCl (Diltiazem Hcl Cd 120 Mg Cap.Er.Deg) 120 mg PO DAILY [facility]; Protocol Last Admin: 02/12/24 08:54 Dose: 120 mg Documented By: PAVEL Guaifenesin/Dextromethorphan (Guaifenesin Dm 200/20/10 Ml 10 Ml Syrup) 10 ml PO TID PRN PRN Reason: Cough Daptomycin 500 mg/ Sodium (Chloride) 60 mls @ 100.605 mls/hr IV Q24H [facility] Last Infusion: 02/11/24 20:53 Dose: Infused Documented By: GRAHAM Loperamide HCl (Loperamide Hcl 2 Mg Capsule) 2 mg PO Q6H PRN PRN Reason: Diarrhea Last Admin: 02/10/24 21:18 Dose: 2 mg Documented By: SHAHRZAD Methylprednisolone Sodium Succinate (Methylprednisolone Sod Succ 125 Mg/2 Ml Vial) 40 mg IVPUSH Q24H [facility] Last Admin: 02/12/24 08:54 Dose: 40 mg Documented By: PAVEL Metoprolol Tartrate (Metoprolol Tartrate 25 Mg Tablet) 25 mg PO BID [facility]; Protocol Last Admin: 02/12/24 08:54 Dose: 25 mg Documented By: PAVEL Sodium Chloride (0.9 % Sodium Chloride Flush 3 Ml Syringe) 3 ml IVFLUSH QSNVFT [facility] Last Admin: 02/12/24 08:51 Dose: 3 ml Documented By: PAVEL Sodium Chloride (0.9 % Sodium Chloride Flush 3 Ml Syringe) 3 ml IVFLUSH QSNVFT [facility] Last Admin: 02/12/24 08:52 Dose: 3 ml Documented By: PAVEL Trazodone HCl (Trazodone Hcl 25 Mg Halftab) 25 mg PO BEDTIME MRX1 PRN PRN Reason: Insomnia Last Admin: 02/10/24 21:18 Dose: 25 mg Documented By: SHAHRZAD Labs 02/10/24 06:14 02/10/24 06:14 Microbiology Microbiology Results: Microbiology 02/07/24 09:55 Blood Culture - Final Blood - Venous No growth after 5 days. 02/07/24 09:35 Blood Culture - Final Blood - Venous No growth after 5 days. Assessment and Plan (1) NSVT (nonsustained ventricular tachycardia): Status: Acute (2) Atrial fibrillation with RVR: Status: Acute (3) Bacteremia: Status: Acute (4) Acute blood loss anemia: Status: Acute Plan 73-year-old male with history of ILD /IPF on 3 L of supplemental oxygen, recent covid 19 infection who presented to the emergency department 02/03 with hypoxia was found to be tachypneic placed on BiPAP with no improvement and ultimately intubated in the emergency department subsequently found to be hypotensive requiring vasopressor support and later developed significant GI bleed requiring IR embolization x2 and numerous blood transfusions. Extubated 02/05 and downgraded to medical floor 02/07. SVT/afib Initially treated with IV Cardizem and po metoprolol went into afib with rvr 02/08 echo normal EF, no wma cardiology following Back in NSR, cont. cardizem 120mg good BP and heart rate control Not on Eliquis due to recent GI bleed. Monitor for recurrent AFib. Acute on chronic hypoxemic respiratory failure due to progression of interstitial lung disease, recent covid infection Extubated 02/05 On IV Solu Medrol 40 mg Q 24 hours x2 days will transition to by mouth prednisone NSVT Patient asymptomatic, echo showed EF 69%, aortic valve sclerosis, patient seen by hospitality housekeeper and considering many comorbidities it is felt that patient is not suitable for ischemic workup they recommend to continue beta-blockers and diltiazem. hypokalemia Resolved with replacement Acute toxic metablic encephalopathy likely due to delirium resolved Acute blood loss anemia/hemorrhagic shock due to acute lower GI bleeding s/p vasopressor support in ICU Status post IR guided embolization of the inferior mesenteric artery at lower descending colon at the junction of sigmoid colon x2 s/p multiple blood transfusions, no further bleeding noted H/H stable /repeat CBC at a.m. Hypertension continue metoprolol and Cardizem CD 120 mg daily amlodipine and Benazepril-hydrochlorothiazide discontinued, follow BP bacteremia, polymicrobial Blood cultures from central line growing three bacterias possibly a contaminant; repeat cultures negative UA negative was on zosyn and zyvox (started 02/03) for ? lower left leg cellulitis - Seen by ID she recommend 3 weeks of IV daptomycin, midline in place Thrombocytopenia Likely dilutional from numerous blood transfusions, stable platelets dvt PPx-SCD due to GI bleeding/anemia Full code dispo - PT rec STR, acute Quality Stroke Does the patient have a stroke diagnosis?: No VTE Prior VTE?: No VTE Risk Level:: Medical - low VTE Device Contraindication: N/A - Device Ordered VTE Drug Contraindication: N/A - Med Ordered
--- NOTE | 2024-02-12 14:56 | MHC.CM.PN ---
EMR REVIEWED, PT NOT YET READY FOR DC, CM RECEIVED MESSAGE FROM [facility] REPORTING THEY CAN NOT OFFER A BED PT NEEDS 4 WKS IV ABX AND THEY ARE UNABLE TO KEEP PT OVER 2 WKS, CM ATTEMPTED TO CONTACT PT'S LIFE PARTNER MADELINE WITH UPDATE AT 2:45PM AT NUMBER ON FILE, NO ANSWER AND DETAILED MESSAGE LEFT, [facility] OFFERING BED FOR TUESDAY 02/13, CM WILL CONT TO FOLLOW DC NEEDS.
[2024-02-12] MEDS: guaiFENesin DM 200/20/10 ML 10 ML SYRUP PO (20:53)
[2024-02-12] MEDS: DAPTOmycin 500 MG in 0.9 % Sodium Chloride 50 ML 100 MG IV (20:54)
[2024-02-13] VITALS (9 sets, daily range): BP systolic 115–137; BP diastolic 60–79; PULSE 54–194; RESP 20–24; TEMP 36.2–36.3; O2SAT 87–100
--- NOTE | 2024-02-13 00:06 | PC.RT ---
Pt refused NOC NIV
[2024-02-13] MEDS: Metoprolol Tartrate 25 MG TABLET PO ×2 (08:42→11:30)
[2024-02-13] MEDS: dilTIAZem HCL CD 120 MG CAP.ER.DEG PO (08:42)
[2024-02-13] MEDS: 0.9 % Sodium Chloride Flush 3 ML SYRINGE IVFLUSH ×6 (08:43→21:00)
[2024-02-13] MEDS: allopurinoL 100 MG TABLET 200 MG PO (08:43)
[2024-02-13] MEDS: predniSONE 20 MG TABLET PO (08:43)
[2024-02-13] MEDS: dilTIAZem HCL 50 MG/10 ML VIAL 10 MG IVPUSH (09:22)
--- NOTE | 2024-02-13 09:43 | P.PNCA_ITS ---
Subjective Subjective Date of Service: 02/13/24 Interval history: Patient states he feels okay but currently in narrow complex tachycardia. Review of Systems Review of Systems Yes all other systems are reviewed and are negative Constitutional: Reports as per HPI and Reports no additional constitutional complaints Eyes: Reports as per HPI and Denies no additional eye complaints Denies system reviewed and no additional complaints, except as documented and Reports as per HPI Cardiovascular: Reports as per HPI, Reports no additional cardiovascular complaints, Denies acrocyanosis, Denies cool extremities, Denies chest pain, Denies leg edema, Denies lightheadedness, Denies palpitations and Denies dyspnea Respiratory: Reports as per HPI, Denies no additional respiratory complaints and Denies dyspnea Gastrointestinal: Reports as per HPI and Denies no additional gastrointestinal complaints Genitourinary: Reports no additional male genitourinary complaints and Reports as per HPI Musculoskeletal: Reports no additional musculoskeletal complaints and Reports as per HPI Skin/Breast: Reports system reviewed and no additional complaints, except as docu Reports system reviewed and no additional complaints, except as documented and Reports as per HPI Psychiatric: Reports no additional psychiatric complaints and Reports as per HPI Endocrine: Reports no additional endocrine complaints, Reports as per HPI and Denies palpitations Hematologic/Lymphatic: Reports no additional hematologic/lymphatic complaints and Reports as per HPI Allergic/Immunologic: Reports no additional allergic/immunologic complaints and Reports as per HPI Physical Exam Vital Signs: Last Vital Signs Temp 97.1 F 02/13/24 08:00 Pulse 178 H 02/13/24 09:22 Resp 20 02/13/24 08:00 BP 125/79 02/13/24 09:22 Pulse Ox 98 02/13/24 08:00 O2 Del Method Nasal Cannula 02/13/24 08:00 O2 Flow Rate 6 02/13/24 08:00 FiO2 25 02/06/24 12:00 Oxygen Flow Rate 3 02/12/24 07:00 BMI result Body Mass Index 26.9 Const General: comfortable, no acute distress, ill appearing and tired appearing Orientation/consciousness: patient oriented x3 HEENT Other: Unremarkable Head: Yes normal to inspection Neck Neck: Yes normal visual inspection Chest Chest palpation & inspection: normal inspection of the chest Resp Other: Inspiratory crackles Cardio Palpation: normal PMI Heart sounds: S1 normal heart sound present, S2 normal heart sound present, no gallops, no murmurs and no rubs GI Palpation (GI): Soft to palpation Back/Spine/Pelvis Other: unremarkable Skin General skin exam: no rashes or lesions noted Neuro General: patient oriented x3 Extrem General: Yes normal to inspection Psych Mental Status: mental status grossly normal Objective Labs and Meds 02/10/24 06:14 02/10/24 06:14 Progress Note: A&P Assessment and plan (1) Atrial fibrillation with RVR: Status: Acute (2) NSVT (nonsustained ventricular tachycardia): Status: Acute (3) COVID-19: Status: Acute (4) Acute blood loss anemia: Status: Acute (5) Lower GI bleed: Status: Acute (6) Supplemental oxygen dependent: Status: Acute (7) Interstitial pulmonary fibrosis: Status: Acute Plan [facility] Cardiology notes reviewed. He is followed up as an outpatient in their clinic. Echocardiogram from last year with LVEF of 55-60%, normal RV size and function and no significant valvular findings. CT chest noted to have moderate coronary calcification and ascending aortic size 3.9 cm. Holter had shown underlying sinus rhythm with supraventricular and ventricular ectopy. At that time, it was felt that his shortness of breath was more from pulmonary reasons than cardiac. He was recommended low-dose aspirin and statins for the coronary disease. In the repeat echocardiogram, LVEF is 69%. Mild diastolic dysfunction. Aortic valve sclerosis. Currently, on telemetry there is narrow complex tachycardia, seems regular and in the 170s. Could be atrial flutter versus fibrillation versus SVT. No further evidence of NSVT. Patient himself does not feel anything. We gave him IV diltiazem and he converted back to normal sinus rhythm. The arrhythmia lasted for a few minutes or so. Otherwise, numerous comorbidities and overall guarded prognosis. We can try to go up on the diltiazem dose if blood pressure permits. Already on beta-blockers as well. He is not suitable for any ischemic workup at this time. Also avoid any aggressive therapy as I am not clear how much she can even tolerate. Due to GI bleeding issues, not on any anticoagulation. Discussed with significant at the bedside. Discussed with and RN. Time Spent With Patient Time: Total time managing care of this patient today ____ minutes. Progress Note: Quality Stroke Does the patient have a stroke diagnosis?: No Procedures Date of Service Date of Service: 02/13/24
--- NOTE | 2024-02-13 11:05 | MHC.CM.PN ---
EMR REVIEWED, PER HOSPITALIST PT REMAINS IN AFIB W/RVR, NO PLAN FOR DC AT THIS TIME, CM CONTACTED PT'S S.O. MADELINE AT NUMBER ON FILE TO UPDATE ON PT STATUS AND DISCUSS DISPO, MADELINE REPORTS SHE AND PT AGREEABLE TO [facility], JESSICA UPDATED ON PLAN, CM WILL CONT TO FOLLOW DC NEEDS.
--- NOTE | 2024-02-13 15:13 | P.PNIM_ITS ---
Subjective Subjective Date of Service: 02/13/24 Interval History: Offers no acute complaints of chest pain, no palpitations, no shortness of breath Noted to have narrow complex tachycardia heart rate in 160-170 range, tolerating diet no nausea no vomiting, requiring oxygen via OxyMask, since finger oximetry dropped to 87% on nasal cannula 3 L Review of Systems All other system reviewed and negative Physical Exam 2 Vital Signs: Vital Signs: Last Vital Signs Temp 97.3 F 02/13/24 11:13 Pulse 78 02/13/24 11:30 Resp 20 02/13/24 11:13 BP 117/66 02/13/24 11:13 Pulse Ox 100 02/13/24 11:13 O2 Del Method Oxymask 02/13/24 11:13 O2 Flow Rate 6 02/13/24 11:13 FiO2 25 02/06/24 12:00 Oxygen Flow Rate 3 02/13/24 07:00 BMI result Body Mass Index 26.9 Const: Other: General resting comfortably in no acute distress. Neck no JVD. CVS tachycardia Respiratory lungs bilateral basilar dry crackles Gastrointestinal abdomen soft, non tender, bowel sounds audible, Extremities no edema. Neuro non focal Skin no rash Psych appropriate affect Objective Data Active Medications Allopurinol (Allopurinol 100 Mg Tablet) 200 mg PO DAILY [facility] Last Admin: 02/13/24 08:43 Dose: 200 mg Documented By: PAVEL Diltiazem HCl (Diltiazem Hcl Cd 120 Mg Cap.Er.Deg) 120 mg PO DAILY [facility]; Protocol Last Admin: 02/13/24 08:42 Dose: 120 mg Documented By: PAVEL Guaifenesin/Dextromethorphan (Guaifenesin Dm 200/20/10 Ml 10 Ml Syrup) 10 ml PO TID PRN PRN Reason: Cough Last Admin: 02/12/24 20:53 Dose: 10 ml Documented By: EMMANUEL Comments: pt requested for cough Daptomycin 500 mg/ Sodium (Chloride) 60 mls @ 100.605 mls/hr IV Q24H [facility] Last Infusion: 02/12/24 21:30 Dose: Infused Documented By: EMMANUEL Loperamide HCl (Loperamide Hcl 2 Mg Capsule) 2 mg PO Q6H PRN PRN Reason: Diarrhea Last Admin: 02/10/24 21:18 Dose: 2 mg Documented By: SHAHRZDA Metoprolol Tartrate (Metoprolol Tartrate 50 Mg Tablet) 50 mg PO BID [facility]; Protocol Prednisone (Prednisone 20 Mg Tablet) 20 mg PO DAILY [facility] Last Admin: 02/13/24 08:43 Dose: 20 mg Documented By: PAVEL Sodium Chloride (0.9 % Sodium Chloride Flush 3 Ml Syringe) 3 ml IVFLUSH QSHIFT [facility] Last Admin: 02/13/24 08:43 Dose: 3 ml Documented By: PAVEL Sodium Chloride (0.9 % Sodium Chloride Flush 3 Ml Syringe) 3 ml IVFLUSH QSHIFT [facility] Last Admin: 02/13/24 08:43 Dose: 3 ml Documented By: PAVEL Trazodone HCl (Trazodone Hcl 25 Mg Halftab) 25 mg PO BEDTIME MRX1 PRN PRN Reason: Insomnia Last Admin: 02/10/24 21:18 Dose: 25 mg Documented By: SHAHRZAD Labs 02/10/24 06:14 02/10/24 06:14 Microbiology Microbiology Results: Microbiology 02/07/24 09:55 Blood Culture - Final Blood - Venous No growth after 5 days. 02/07/24 09:35 Blood Culture - Final Blood - Venous No growth after 5 days. Assessment and Plan (1) NSVT (nonsustained ventricular tachycardia): Status: Acute (2) COVID-19: Status: Acute (3) Atrial fibrillation with RVR: Status: Acute Plan 73-year-old male with history of ILD /IPF on 3 L of supplemental oxygen, recent covid 19 infection who presented to the emergency department 02/03 with hypoxia was found to be tachypneic placed on BiPAP with no improvement and ultimately intubated in the emergency department subsequently found to be hypotensive requiring vasopressor support and later developed significant GI bleed requiring IR embolization x2 and numerous blood transfusions. Extubated 02/05 and downgraded to medical floor 02/07. SVT/afib Initially treated with IV Cardizem and po metoprolol went into afib with rvr 02/08 echo normal EF, no wma Was in NSR, on cardizem 120mg and metoprolol This a.m. went into rapid heart rate question SVT versus AFib/flutter treated with IV Cardizem converted back to normal sinus rhythm Not on Eliquis due to recent GI bleed. Continue tele monitor will increase dose of metoprolol to 50 mg b.i.d. Will check TSH, magnesium and lytes. Acute on chronic hypoxemic respiratory failure due to progression of interstitial lung disease, recent covid infection Extubated 02/05 On IV Solu Medrol 40 mg Q 24 hours x2 days will transition to by mouth prednisone 20mg today 02/12 NSVT noted on 02/11 Patient asymptomatic, echo showed EF 69%, aortic valve sclerosis, patient seen by heel lift gouger and considering many comorbidities it is felt that patient is not suitable for ischemic workup they recommend to continue beta-blockers and diltiazem. hypokalemia Resolved with replacement Acute toxic metablic encephalopathy likely due to delirium resolved Acute blood loss anemia/hemorrhagic shock due to acute lower GI bleeding s/p vasopressor support in ICU Status post IR guided embolization of the inferior mesenteric artery at lower descending colon at the junction of sigmoid colon x2 s/p multiple blood transfusions, no further bleeding noted H/H stable 9.7/28.4 Hypertension continue metoprolol and Cardizem CD 120 mg daily amlodipine and Benazepril-hydrochlorothiazide discontinued, follow BP bacteremia, polymicrobial Blood cultures from central line growing three bacterias possibly a contaminant; repeat cultures negative UA negative was on zosyn and zyvox (started 02/03) for ? lower left leg cellulitis - Seen by ID she recommend 3 weeks of IV daptomycin, midline in place Thrombocytopenia stable platelets dvt PPx-SCD due to GI bleeding/anemia Full code dispo - PT rec STR, acute Quality Stroke Does the patient have a stroke diagnosis?: No VTE Prior VTE?: No VTE Risk Level:: Medical - low VTE Device Contraindication: N/A - Device Ordered VTE Drug Contraindication: N/A - Med Ordered
--- NOTE | 2024-02-13 19:11 | PC.NURSE ---
Approximately 0915 while working with therapy pts heart rate into 180's sustained pt asymptomatic remained elevated after return to bed. Dr Maguire and cardiology at bedside 10mg IVP cardizem given with good effect HR immediately returned to 70-80's NSR. VSS during event pt remained asymptomtic.
[2024-02-13] MEDS: guaiFENesin DM 200/20/10 ML 10 ML SYRUP PO (20:55)
[2024-02-13] MEDS: DAPTOmycin 500 MG in 0.9 % Sodium Chloride 50 ML 100 MG IV (20:56)
[2024-02-13] MEDS: Metoprolol Tartrate 50 MG TABLET PO (20:56)
[2024-02-14] VITALS (10 sets, daily range): BP systolic 112–140; BP diastolic 63–71; PULSE 50–81; RESP 18–20; TEMP 36.1–36.7; O2SAT 95–100
[2024-02-14 06:27] LABS: Hematocrit 26.6 % (42.0-52.0); Hemoglobin 9.3 g/dl (14.0-18.0); Mean Corpuscular Hemoglobin 30.9 pg (27.0-33.0); Mean Corpuscular Volume 88.4 fL (80.0-98.0); Mean Platelet Volume 10.6 fL (9.4-12.4); Platelet Count 113 X10*3/uL (160-400); Red Blood Count 3.01 X10*6/uL (4.60-5.80); Red Cell Distribution Width 13.7 % (11.0-16.0); White Blood Count 11.9 X10*3/uL (4.8-10.8)
[2024-02-14 06:46] LABS: Anion Gap 11 (12-20); Blood Urea Nitrogen 16 mg/dL (9-16); Calcium 8.5 mg/dL (8.4-10.2); Carbon Dioxide 26 mmol/L (22-29); Chloride 103 mmol/L (96-108); Creatinine Clr Calc Pharmacy 96.4; Estimated Glomerular Filt Rate > 60; Glucose Random 116 mg/dL (60-115); Magnesium 1.9 mg/dL (1.6-2.6); Potassium 4.5 mmol/L (3.3-5.1); Sodium 135 mmol/L (135-145)
[2024-02-14 07:02] LABS: Thyroid Stimulating Hormone 1.77 uIU/mL (0.32-4.0)
[2024-02-14] MEDS: 0.9 % Sodium Chloride Flush 3 ML SYRINGE IVFLUSH ×4 (08:28→15:06)
[2024-02-14] MEDS: Metoprolol Tartrate 50 MG TABLET PO ×2 (08:29→21:01)
[2024-02-14] MEDS: dilTIAZem HCL CD 120 MG CAP.ER.DEG PO (08:29)
[2024-02-14] MEDS: predniSONE 20 MG TABLET PO (08:29)
[2024-02-14] MEDS: allopurinoL 100 MG TABLET 200 MG PO (08:29)
--- NOTE | 2024-02-14 14:32 | HO.PM.IMPN ---
Subjective Subjective Date of Service: 02/14/24 Interval History: Seen and examined this morning Follow-up for multiple medical issues including bacteremia, respiratory failure, NSVT No overnight events, no arrhythmias overnight No chest pain, palpitations Review of Systems Review of Systems: Yes all other systems are reviewed and are negative Constitutional Constitutional: Denies fever(s) Cardiovascular Cardiovascular: Denies chest pain, Denies palpitations and Reports dyspnea Respiratory Respiratory: Denies cough and Reports dyspnea Gastrointestinal Gastrointestinal: Denies abdominal pain, Denies nausea and Denies vomiting Endocrine Endocrine: Denies palpitations Physical Exam Vital Signs: Vital Signs: Last Vital Signs Temp 98.0 F 02/14/24 11:23 Pulse 54 02/14/24 12:13 Resp 18 02/14/24 11:23 BP 112/64 02/14/24 12:13 Pulse Ox 97 02/14/24 12:13 O2 Del Method Oxymask 02/14/24 11:23 O2 Flow Rate 3 02/14/24 11:23 FiO2 25 02/06/24 12:00 Oxygen Flow Rate 4 02/14/24 07:00 BMI result Body Mass Index 26.9 Objective Data Active Medications Allopurinol (Allopurinol 100 Mg Tablet) 200 mg PO DAILY [facility] Last Admin: 02/14/24 08:29 Dose: 200 mg Documented By: GUEVARA Diltiazem HCl (Diltiazem Hcl Cd 120 Mg Cap.Er.Deg) 120 mg PO DAILY [facility]; Protocol Last Admin: 02/14/24 08:29 Dose: 120 mg Documented By: GUEVARA Guaifenesin/Dextromethorphan (Guaifenesin Dm 200/20/10 Ml 10 Ml Syrup) 10 ml PO TID PRN PRN Reason: Cough Last Admin: 02/13/24 20:55 Dose: 10 ml Documented By: EMMANUEL Comments: requested for cough Daptomycin 500 mg/ Sodium (Chloride) 60 mls @ 100.605 mls/hr IV Q24H [facility] Last Infusion: 02/13/24 21:32 Dose: Infused Documented By: EMMANUEL Loperamide HCl (Loperamide Hcl 2 Mg Capsule) 2 mg PO Q6H PRN PRN Reason: Diarrhea Last Admin: 02/10/24 21:18 Dose: 2 mg Documented By: SHAHRZAD Metoprolol Tartrate (Metoprolol Tartrate 50 Mg Tablet) 50 mg PO BID [facility]; Protocol Last Admin: 02/14/24 08:29 Dose: 50 mg Documented By: GUEVARA Prednisone (Prednisone 20 Mg Tablet) 20 mg PO DAILY [facility] Last Admin: 02/14/24 08:29 Dose: 20 mg Documented By: GUEVARA Sodium Chloride (0.9 % Sodium Chloride Flush 3 Ml Syringe) 3 ml IVFLUSH [facility] Last Admin: 02/14/24 08:28 Dose: 3 ml Documented By: GUEVARA Sodium Chloride (0.9 % Sodium Chloride Flush 3 Ml Syringe) 3 ml IVFLUSH [facility] Last Admin: 02/14/24 08:28 Dose: 3 ml Documented By: GUEVARA Trazodone HCl (Trazodone Hcl 25 Mg Halftab) 25 mg PO BEDTIME MRX1 PRN PRN Reason: Insomnia Last Admin: 02/10/24 21:18 Dose: 25 mg Documented By: SHAHRZAD Labs 02/14/24 06:06 02/14/24 06:06 Labs: Laboratory Results - last 24 hr 02/14/24 06:06 MCV 88.4 MCH 30.9 MCHC 35.0 RDW 13.7 Plt Count 113 L MPV 10.6 Absolute Nucleated RBC 0.000 Nucleated RBC % (auto) 0.0 Anion Gap 11 L Estim Creat Clear Calc 96.4 Estimated GFR > 60 Random Glucose 116 H Calcium 8.5 Magnesium 1.9 TSH 1.77 Quality Stroke Does the patient have a stroke diagnosis?: No VTE Prior VTE?: No VTE Risk Level:: Medical - low VTE Device Contraindication: N/A - Device Ordered VTE Drug Contraindication: N/A - Med Ordered
--- NOTE | 2024-02-14 14:41 | P.DS_ITS ---
DS: Providers Provider Date of Service: 02/14/24 Date of admission: 02/04/24 10:37 Date of discharge: 02/14/24 Primary care physician: NAOMI Castellanos Consults: 02/04/24 15:14 Consult to Gastroenterology Stat Consulting Provider: [facility] [place] [facility] Reason for consultation: lower GI bleed Has provider been notified: No 02/06/24 09:22 Consult to Wound Care Routine Reason for consultation: Right Great Toe 02/09/24 08:21 Consult to Cardiology Routine Consulting Provider: [facility] [place] [facility] Reason for consultation: afib rvr Has provider been notified: No 02/09/24 15:37 Consult to Infectious Diseases Routine Consulting Provider: [facility] [place] [facility] Reason for consultation: polymicrobial bacteremia Has provider been notified: No 02/11/24 15:18 Consult to Infectious Diseases Routine Consulting Provider: [facility] [place] [facility] Reason for consultation: bacteremia Attending physician on discharge: Rob Carson Discharging clinician: Maile Maldonado DS: Diagnosis Discharge Diagnosis (1) NSVT (nonsustained ventricular tachycardia): Status: Acute (2) COVID-19: Status: Acute (3) Atrial fibrillation with RVR: Status: Acute (4) Bacteremia: Status: Acute (5) Lower GI bleed: Status: Acute (6) Acute blood loss anemia: Status: Acute DS: Summary Hospital Course Hospital Course: From H&P on the day of admission 73-year-old gentleman who is a previous smoker quit in 1999 with past medical history of interstitial lung disease UIP/IPF on supplemental home oxygen 3 liters/minute, on oral steroids was brought into the ED after a fall at home. Apparently patient was walking to the restroom with support with his when he fell down so EMS was called. When he was brought into the ED he was hypoxic to low 80s and tachypneic to 50s he was placed on BiPAP support with no improvement in his symptoms so was intubated and placed on ventilator support. He is also found to be very hypotensive needing maximum Levophed support so MICU was consulted for admission SVT/afib Initially treated with IV Cardizem and po metoprolol went into afib with rvr 02/08 echo normal EF, no wma Was in NSR, on cardizem 120mg and metoprolol 02/12 went into rapid heart rate question SVT versus AFib/flutter treated with IV Cardizem converted back to normal sinus rhythm Not on Eliquis due to recent GI bleed. Continue tele monitor will increase dose of metoprolol to 50 mg b.i.d. TSH, magnesium and lytes stable Acute on chronic hypoxemic respiratory failure due to progression of interstitial lung disease, recent covid infection Extubated 02/05 On IV Solu Medrol 40 mg Q 24 hours x2 days transitioned to by mouth prednisone 20mg 02/12. We will need outpatient follow-up with Pulmonary NSVT noted on 02/11 Patient asymptomatic, echo showed EF 69%, aortic valve sclerosis, patient seen by mural painter and considering many comorbidities it is felt that patient is not suitable for ischemic workup they recommend to continue beta-blockers and diltiazem. hypokalemia Resolved with replacement Acute toxic metablic encephalopathy likely due to delirium resolved Acute blood loss anemia/hemorrhagic shock due to acute lower GI bleeding s/p vasopressor support in ICU Status post IR guided embolization of the inferior mesenteric artery at lower descending colon at the junction of sigmoid colon x2 s/p multiple blood transfusions, no further bleeding noted H/H has remained stable Hypertension continue metoprolol and Cardizem CD 120 mg daily amlodipine and Benazepril-hydrochlorothiazide discontinued bacteremia, polymicrobial Blood cultures from central line growing three bacterias possibly a contaminant; repeat cultures negative UA negative was on zosyn and zyvox (started 02/03) for ? lower left leg cellulitis - Seen by ID she recommend 3 weeks of IV daptomycin, midline in place. negative blood cultures from 02/06 - end date 02/27 Thrombocytopenia stable platelets Patient chronically ill with interstitial lung disease. Shortness of breath and tachycardia with minimal exertion. Currently cardiology recommends in bed physical therapy was slow advancement. high risk for readmission. Quality: Safe Use of Opioids Does Pt have an Active Cancer Diagnosis on the Problem List?: No Quality: Stroke Does the patient have a stroke diagnosis?: No Physical Exam Vital Signs: Vital Signs: Last Vital Signs Temp 98.0 F 02/14/24 11:23 Pulse 54 02/14/24 12:13 Resp 18 02/14/24 11:23 BP 112/64 02/14/24 12:13 Pulse Ox 97 02/14/24 12:13 O2 Del Method Oxymask 02/14/24 11:23 O2 Flow Rate 3 02/14/24 11:23 FiO2 25 02/06/24 12:00 Oxygen Flow Rate 4 02/14/24 07:00 BMI result Body Mass Index 26.9 DS: Data Data Completed and Pending Labs on day of discharge: Laboratory Results - last 24 hr 02/14/24 06:06 WBC 11.9 H RBC 3.01 L Hgb 9.3 L Hct 26.6 L MCV 88.4 MCH 30.9 MCHC 35.0 RDW 13.7 Plt Count 113 L MPV 10.6 Absolute Nucleated RBC 0.000 Nucleated RBC % (auto) 0.0 Sodium 135 Potassium 4.5 Chloride 103 Carbon Dioxide 26 Anion Gap 11 L BUN 16 Creatinine 0.66 Estim Creat Clear Calc 96.4 Estimated GFR > 60 Random Glucose 116 H Calcium 8.5 Magnesium 1.9 TSH 1.77 Discharge Plan Discharge Patient Disposition: [facility] Discharge Diagnosis: Acute on chronic respiratory failure requiring mechanical ventilation Progression of interstitial lung disease, recovering COVID-19 infection Acute blood loss anemia due to Lower GI bleed requiring embolization x2 NSVT Atrial fibrillation Referrals: [facility] [Outside] - 1 Week Gabriel Finney PA [Primary Care Provider] - 1 Week Lm Del Real MD [Physician] - 2 Weeks Discharge Medications: Continued Ofev 100 mg capsule 100 mg PO Q12H 30 Days Qty: 60 6RF albuterol sulfate 90 mcg/actuation HFA aerosol inhaler 2 puff inhalation Q4-6H PRN (Reason: shortness of breath or wheezing) 30 Days Qty: 1 1RF calcium carbonate [Calcium 500] 500 mg calcium (1,250 mg) Tablet 500 mg PO DAILY cholecalciferol (vitamin D3) [Vitamin D3] 50 mcg (2,000 unit) Tablet 50 mcg PO DAILY allopurinol 100 mg tablet 200 mg PO DAILY Discontinued doxycycline monohydrate 100 mg capsule 100 mg PO BIDWM Rx Instructions: End date 02/13/24 amlodipine 10 mg tablet 10 mg PO DAILY benazepril-hydrochlorothiazide 10-12.5 mg tablet 1 tab PO DAILY No Action prednisone 10 mg tablet See Taper PO DAILY Taper: Prednisone 40 mg daily for 5 Days and 0 Hour 30 mg daily for 5 Days and 0 Hour 20 mg daily for 5 Days and 0 Hour 10 mg daily for 5 Days and 0 Hour Rx Instructions: Take 4 tabs daily by 5 days, then go down by 1 tab every 5 days ( Patient on day day 6 = 30 mg daily) atorvastatin 40 mg tablet 40 mg PO DAILY Stand Alone Forms: Patient Portal Discharge page Print Language: Maltese
--- NOTE | 2024-02-14 15:09 | P.PNIM_ITS ---
Subjective Subjective Date of Service: 02/14/24 Interval History: Seen and examined this morning Follow-up for respiratory failure, GI bleed, arrhythmia No arrhythmias overnight Still short of breath with minimal movement. No chest pain, no palpitations Review of Systems Review of Systems: Yes all other systems are reviewed and are negative Constitutional Constitutional: Denies chills and Denies fever(s) ENT Ears, Nose, Mouth, and Throat: Denies dizziness Cardiovascular Cardiovascular: Denies chest pain and Denies palpitations Neurologic Neurologic: Denies dizziness Endocrine Endocrine: Denies palpitations Physical Exam 2 Vital Signs: Vital Signs: Last Vital Signs Temp 98.0 F 02/14/24 11:23 Pulse 54 02/14/24 12:13 Resp 18 02/14/24 11:23 BP 112/64 02/14/24 12:13 Pulse Ox 97 02/14/24 12:13 O2 Del Method Oxymask 02/14/24 11:23 O2 Flow Rate 3 02/14/24 11:23 FiO2 25 02/06/24 12:00 Oxygen Flow Rate 4 02/14/24 07:00 BMI result Body Mass Index 26.9 Const: General: cooperative, comfortable, alert and awake Nutritional Appearance: average body habitus Orientation/consciousness: patient oriented x3 Resp: Other: diminished breath sounds; dry crackles b/l; poor inspiratory effort Effort & Inspection: able to speak in complete sentences, no respiratory distress and no use of accessory muscles Auscultation: no wheezes Cardio: Rate: regular rate and tachycardic GI: Inspection: No distended Palpation (GI): Soft to palpation and nontender Neuro: General: patient oriented x3, moves all extremities and CN's II-XI intact bilaterally Extrem: General: Yes no pedal edema Objective Data Active Medications Allopurinol (Allopurinol 100 Mg Tablet) 200 mg PO DAILY [facility] Last Admin: 02/14/24 08:29 Dose: 200 mg Documented By: GUEVARA Diltiazem HCl (Diltiazem Hcl Cd 120 Mg Cap.Er.Deg) 120 mg PO DAILY [facility]; Protocol Last Admin: 02/14/24 08:29 Dose: 120 mg Documented By: GUEVARA Guaifenesin/Dextromethorphan (Guaifenesin Dm 200/20/10 Ml 10 Ml Syrup) 10 ml PO TID PRN PRN Reason: Cough Last Admin: 02/13/24 20:55 Dose: 10 ml Documented By: EMMANUEL Comments: requested for cough Daptomycin 500 mg/ Sodium (Chloride) 60 mls @ 100.605 mls/hr IV Q24H [facility] Last Infusion: 02/13/24 21:32 Dose: Infused Documented By: EMMANUEL Loperamide HCl (Loperamide Hcl 2 Mg Capsule) 2 mg PO Q6H PRN PRN Reason: Diarrhea Last Admin: 02/10/24 21:18 Dose: 2 mg Documented By: SHAHRZAD Metoprolol Tartrate (Metoprolol Tartrate 50 Mg Tablet) 50 mg PO BID [facility]; Protocol Last Admin: 02/14/24 08:29 Dose: 50 mg Documented By: GUEVARA Prednisone (Prednisone 20 Mg Tablet) 20 mg PO DAILY [facility] Last Admin: 02/14/24 08:29 Dose: 20 mg Documented By: GUEVARA Sodium Chloride (0.9 % Sodium Chloride Flush 3 Ml Syringe) [address] [facility] Last Admin: 02/14/24 15:05 Dose: 3 ml Documented By: GUEVARA Sodium Chloride (0.9 % Sodium Chloride Flush 3 Ml Syringe) 3 ml IVFLUSH [facility] Last Admin: 02/14/24 15:06 Dose: 3 ml Documented By: GUEVARA Trazodone HCl (Trazodone Hcl 25 Mg Halftab) 25 mg PO BEDTIME MRX1 PRN PRN Reason: Insomnia Last Admin: 02/10/24 21:18 Dose: 25 mg Documented By: SHAHRZAD Labs 02/14/24 06:06 02/14/24 06:06 Labs: Laboratory Results - last 24 hr 02/14/24 06:06 MCV 88.4 MCH 30.9 MCHC 35.0 RDW 13.7 Plt Count 113 L MPV 10.6 Absolute Nucleated RBC 0.000 Nucleated RBC % (auto) 0.0 Anion Gap 11 L Estim Creat Clear Calc 96.4 Estimated GFR > 60 Random Glucose 116 H Calcium 8.5 Magnesium 1.9 TSH 1.77 Assessment and Plan (1) NSVT (nonsustained ventricular tachycardia): Status: Acute (2) Atrial fibrillation with RVR: Status: Acute Plan 73-year-old male with history of ILD /IPF on 3 L of supplemental oxygen, recent covid 19 infection who presented to the emergency department 02/03 with hypoxia was found to be tachypneic placed on BiPAP with no improvement and ultimately intubated in the emergency department subsequently found to be hypotensive requiring vasopressor support and later developed significant GI bleed requiring IR embolization x2 and numerous blood transfusions. Extubated 02/05 and downgraded to medical floor 02/07. SVT/afib Initially treated with IV Cardizem and po metoprolol went into afib with rvr 02/08 echo normal EF, no wma Was in NSR, on cardizem 120mg and metoprolol This a.m. went into rapid heart rate question SVT versus AFib/flutter treated with IV Cardizem converted back to normal sinus rhythm Not on Eliquis due to recent GI bleed. Continue tele monitor will increase dose of metoprolol to 50 mg b.i.d. Will check TSH, magnesium and lytes. Acute on chronic hypoxemic respiratory failure due to progression of interstitial lung disease, recent covid infection Extubated 02/05 On IV Solu Medrol 40 mg Q 24 hours x2 days will transition to by mouth prednisone 20mg today 02/12 NSVT noted on 02/11 Patient asymptomatic, echo showed EF 69%, aortic valve sclerosis, patient seen by spot welder and considering many comorbidities it is felt that patient is not suitable for ischemic workup they recommend to continue beta-blockers and diltiazem. hypokalemia Resolved with replacement Acute toxic metablic encephalopathy likely due to delirium resolved Acute blood loss anemia/hemorrhagic shock due to acute lower GI bleeding s/p vasopressor support in ICU Status post IR guided embolization of the inferior mesenteric artery at lower descending colon at the junction of sigmoid colon x2 s/p multiple blood transfusions, no further bleeding noted H/H stable 9.7/28.4 Hypertension continue metoprolol and Cardizem CD 120 mg daily amlodipine and Benazepril-hydrochlorothiazide discontinued, follow BP bacteremia, polymicrobial Blood cultures from central line growing three bacterias possibly a contaminant; repeat cultures negative UA negative was on zosyn and zyvox (started 02/03) for ? lower left leg cellulitis - Seen by ID she recommend 3 weeks of IV daptomycin, midline in place, and a February 27 Thrombocytopenia stable platelets dvt PPx-SCD due to GI bleeding/anemia Full code dispo - PT rec STR Quality Stroke Does the patient have a stroke diagnosis?: No VTE Prior VTE?: No VTE Risk Level:: Medical - low VTE Device Contraindication: N/A - Device Ordered VTE Drug Contraindication: N/A - Med Ordered
--- NOTE | 2024-02-14 15:15 | MHC.CM.PN ---
Second IMM given 02/13. EMR reviewed and per MD rounds, pt likely to be ready for discharge tomorrow 02/14, and insurance auth was pursued for STR at [facility]. Insurance auth obtained, and per pts request and hospitalist, pt will discharge to STR tomorrow. Transport pre-booked for 02/14 at 2pm.
[2024-02-14] MEDS: DAPTOmycin 500 MG in 0.9 % Sodium Chloride 50 ML 100 MG IV (21:01)
[2024-02-15] VITALS: BP 114/61; PULSE 59; RESP 20; TEMP 36; O2SAT 95
[2024-02-15] MEDS: 0.9 % Sodium Chloride Flush 3 ML SYRINGE IVFLUSH ×4 (00:06→08:26)
[2024-02-15 04:00] VITALS: BP 108/61; PULSE 52; RESP 20; TEMP 36.9; O2SAT 96
[2024-02-15 07:00] VITALS: O2SAT 93
[2024-02-15 08:00] VITALS: BP 131/58; PULSE 81; RESP 16; TEMP 36.2; O2SAT 93
[2024-02-15] MEDS: predniSONE 20 MG TABLET PO (08:25)
[2024-02-15] MEDS: allopurinoL 100 MG TABLET 200 MG PO (08:25)
[2024-02-15] MEDS: Metoprolol Tartrate 50 MG TABLET PO (08:26)
[2024-02-15] MEDS: dilTIAZem HCL CD 120 MG CAP.ER.DEG PO (08:26)
[2024-02-15 12:00] VITALS: BP 124/64; PULSE 62; RESP 14; TEMP 36.5; O2SAT 93
--- NOTE | 2024-02-15 12:17 | MHC.CM.PN ---
PT WILL DC TO [facility] FOR STR TODAY AT 1400 HOURS VIA DELFINA DAVIS
--- NOTE | 2024-02-15 12:41 | PM.DS ---
DS: Providers Provider Date of Service: 02/15/24 Date of admission: 02/04/24 10:37 Primary care physician: NAOMI Castellanos Consults: 02/04/24 15:14 Consult to Gastroenterology Stat Consulting Provider: [facility] [place] [facility] Reason for consultation: lower GI bleed Has provider been notified: No 02/06/24 09:22 Consult to Wound Care Routine Reason for consultation: Right Great Toe 02/09/24 08:21 Consult to Cardiology Routine Consulting Provider: [facility] [place] [facility] Reason for consultation: afib rvr Has provider been notified: No 02/09/24 15:37 Consult to Infectious Diseases Routine Consulting Provider: [facility] [place] [facility] Reason for consultation: polymicrobial bacteremia Has provider been notified: No 02/11/24 15:18 Consult to Infectious Diseases Routine Consulting Provider: [facility] [place] [facility] Reason for consultation: bacteremia DS: Diagnosis Discharge Diagnosis (1) NSVT (nonsustained ventricular tachycardia): Status: Acute (2) Atrial fibrillation with RVR: Status: Acute DS: Summary Hospital Course Hospital Course: From H&P on the day of admission 73-year-old gentleman who is a previous smoker quit in 1999 with past medical history of interstitial lung disease UIP/IPF on supplemental home oxygen 3 liters/minute, on oral steroids was brought into the ED after a fall at home. Apparently patient was walking to the restroom with support with his when he fell down so EMS was called. When he was brought into the ED he was hypoxic to low 80s and tachypneic to 50s he was placed on BiPAP support with no improvement in his symptoms so was intubated and placed on ventilator support. He is also found to be very hypotensive needing maximum Levophed support so MICU was consulted for admission SVT/afib Initially treated with IV Cardizem and po metoprolol went into afib with rvr 02/08 echo normal EF, no wma Was in NSR, on cardizem 120mg and metoprolol 02/12 went into rapid heart rate question SVT versus AFib/flutter treated with IV Cardizem converted back to normal sinus rhythm Not on Eliquis due to recent GI bleed. metoprolol to 50 mg b.i.d. TSH, magnesium and lytes stable Acute on chronic hypoxemic respiratory failure due to progression of interstitial lung disease, recent covid infection Extubated 02/05 Treated with IV Solu Medrol 40 mg Q 24 hours x2 days transitioned to by mouth prednisone 20mg 02/12. We will need outpatient follow-up with Pulmonary NSVT noted on 02/11 Patient asymptomatic, echo showed EF 69%, aortic valve sclerosis, patient seen by webbing supervisor and considering many comorbidities it is felt that patient is not suitable for ischemic workup they recommend to continue beta-blockers and diltiazem. hypokalemia Resolved with replacement Acute toxic metablic encephalopathy likely due to delirium resolved Acute blood loss anemia/hemorrhagic shock due to acute lower GI bleeding s/p vasopressor support in ICU Status post IR guided embolization of the inferior mesenteric artery at lower descending colon at the junction of sigmoid colon x2 s/p multiple blood transfusions, no further bleeding noted H/H has remained stable Hypertension continue metoprolol and Cardizem CD 120 mg daily amlodipine and Benazepril-hydrochlorothiazide discontinued bacteremia, polymicrobial Blood cultures from central line growing three bacterias possibly a contaminant; repeat cultures negative UA negative was on zosyn and zyvox (started 02/03) for ? lower left leg cellulitis - Seen by ID she recommend 3 weeks of IV daptomycin, midline in place. negative blood cultures from 02/06 - end date 02/27 Thrombocytopenia stable platelets Patient chronically ill with interstitial lung disease. Shortness of breath and tachycardia with minimal exertion. Currently cardiology recommends in bed physical therapy was slow advancement. high risk for readmission. Time Attestation Discharge Coordination Time (in mins): 40 Quality: Safe Use of Opioids Does Pt have an Active Cancer Diagnosis on the Problem List?: No Quality: Stroke Does the patient have a stroke diagnosis?: No Physical Exam Vital Signs: Vital Signs: Last Vital Signs Temp 97.7 F 02/15/24 12:00 Pulse 62 02/15/24 12:00 Resp 14 02/15/24 12:00 BP 124/64 02/15/24 12:00 Pulse Ox 93 02/15/24 12:00 O2 Del Method Nasal Cannula 02/15/24 12:00 O2 Flow Rate 3 02/15/24 12:00 FiO2 25 02/06/24 12:00 Oxygen Flow Rate 4 02/15/24 07:00 BMI result Body Mass Index 26.9 Appearing in no acute distress head is normocephalic atraumatic eyes pupils are PERRLA sclera is anicteric mouth throat mucous membranes are intact and moist neck is supple no lymphadenopathy, no JVD noted lung sounds are clear to auscultation heart regular rate rhythm, clear S1, S2 positive bowel sounds, abdomen is soft, nontender neuro patient is alert x3, no focal deficits Discharge Plan Discharge Anticipated Discharge Date/Time: 02/15/24 12:22 Patient Disposition: Xfer SNF Discharge Diagnosis: Acute on chronic respiratory failure requiring mechanical ventilation Progression of interstitial lung disease, recovering COVID-19 infection Acute blood loss anemia due to Lower GI bleed requiring embolization x2 NSVT Atrial fibrillation Referrals: [facility] [Outside] Lm Del Real MD [Physician] - 2 Weeks Gabriel Finney PA [Primary Care Provider] - 1 Week Discharge Medications: New daptomycin 500 mg recon soln 500 mg IV Q24H Rx Instructions: administer over 30 mins metoprolol tartrate 50 mg Tablet 50 mg PO BID Qty: 30 0RF Protocol: Hold for SBP/HR < HOLD for SBP < : 90 HOLD for HR < : 60 diltiazem HCl [Cardizem CD] 120 mg Capsule,Extended Release 24hr 120 mg PO DAILY Qty: 30 0RF Protocol: Hold for SBP/HR < HOLD for SBP < : 90 HOLD for HR < : 60 Continued Ofev 100 mg capsule 100 mg PO Q12H 30 Days Qty: 60 6RF albuterol sulfate 90 mcg/actuation HFA aerosol inhaler 2 puff inhalation Q4-6H PRN (Reason: shortness of breath or wheezing) 30 Days Qty: 1 1RF calcium carbonate 500 mg calcium (1,250 mg) Tablet 500 mg PO DAILY cholecalciferol (vitamin D3) [Vitamin D3] 50 mcg (2,000 unit) Tablet 50 mcg PO DAILY allopurinol 100 mg tablet 200 mg PO DAILY atorvastatin 40 mg tablet 40 mg PO DAILY Discontinued doxycycline monohydrate 100 mg capsule 100 mg PO BIDWM Rx Instructions: End date 02/13/24 prednisone 10 mg tablet See Taper PO DAILY Taper: Prednisone 40 mg daily for 5 Days and 0 Hour 30 mg daily for 5 Days and 0 Hour 20 mg daily for 5 Days and 0 Hour 10 mg daily for 5 Days and 0 Hour Rx Instructions: Take 4 tabs daily by 5 days, then go down by 1 tab every 5 days ( Patient on day day 6 = 30 mg daily) amlodipine 10 mg tablet 10 mg PO DAILY benazepril-hydrochlorothiazide 10-12.5 mg tablet 1 tab PO DAILY Discharge Orders: Discharge Order (Routine); Ordered 02/15/24 Ordered By: Luci Hui Diet: Advance to usual diet Activity on Discharge: As tolerated Stand Alone Forms: Patient Portal Discharge page Print Language: Bolivian Care Plan Goals: Transfer to short-term rehab for physical therapy continue daptomycin, last date 02/28/24. Remove midline after last dose Health Concerns: Acute on chronic respiratory failure requiring mechanical ventilation Progression of interstitial lung disease, recovering COVID-19 infection Acute blood loss anemia due to Lower GI bleed requiring embolization x2 NSVT Atrial fibrillation Plan of Treatment: Follow-up with primary care provider as needed Take all medications as prescribed Assessment: See discharge summary Discharge Date/Time: 02/15/24 14:55
--- NOTE | 2024-02-25 13:38 | P.CDIM_ITS ---
PROVIDER RESPONSE TEXT: To clarify, the appropriate diagnosis supported by the clinical indicators: Other (explain): no central line infection QUERY TEXT: PHYSICIAN'S DOCUMENTATION REQUEST Date of Query: 02/25/2024 09:49 AM EDT Patient Name: Ulises Myrick Admit Date: 02/04/2024 Dear Luci Hui HULL SORTER, RETROSPECTIVE QUERY A review of the medical record indicates additional documentation may be needed. Please review below and update the documentation accordingly. Clinical Indicators: Progress notes within the Plan dated 02/14/24 - Bacteremia, polymicrobial Blood cultures from central line growing three bacteria's possibly a contaminant, repeat cultures neg ative. Seen by ID and she recommended 3 weeks of IV daptomycin, midline in place, and a February 27 The diagnosis of (CLABSI) needs further clarification if possible: Please clarify the following: Central line-associated bloodstream infection (CLABSI) possible, probable, suspected, after study has been ruled out, etc. Other (explain) Clinically unable to determine (explain) Thank you, Sharri Flores, CCS, CDIS Use of terms such as suspected, likely, concern for, or probable (associated with a specific diagnosi s that is being evaluated, monitored, or treated as if it exists) are acceptable and can be coded in the inpatient se tting, when documented at the time of discharge. Please use your independent medical judgment in providing your response. THIS QUERY IS PART OF THE PERMANENT MEDICAL RECORD
== END 2024-02-15 14:55 | disposition skilled nursing facility (03) | DRG 987 ==
LOC: HO.ED 10:39 → HO.EDOVER 10:43 → HO.ICU 10:52 → HO.IMC 02-07 15:42
PROVIDERS: Hospitalist; Physician Assistant Medical; Radiology Vascular & Interventional Radiology; Admitting Provider Internal Medicine Critical Care Medicine; Emergency Provider Emergency Medicine; PCP Physician Assistant Medical; Visit Provider Nurse Practitioner Acute Care
DX: J84.112 Idiopathic pulmonary fibrosis (principal); G92.8 Other toxic encephalopathy; J96.21 Acute and chronic respiratory failure with hypoxia; U07.1 COVID-19; R57.8 Other shock; K57.31 Diverticulosis of large intestine without perforation or abscess with bleeding; L03.116 Cellulitis of left lower limb; I47.10 Supraventricular tachycardia, unspecified; D62 Acute posthemorrhagic anemia; F05 Delirium due to known physiological condition; E87.6 Hypokalemia; Z66 Do not resuscitate; I48.91 Unspecified atrial fibrillation; D69.59 Other secondary thrombocytopenia; I10 Essential (primary) hypertension; M05.10 Rheumatoid lung disease with rheumatoid arthritis of unspecified site; Z99.81 Dependence on supplemental oxygen; Z87.891 Personal history of nicotine dependence; Z79.899 Other long term (current) drug therapy
CPT/HCPCS: 0241U; 36410; 36415; 36600; 37244; 71045; 71275; 74174; 74177; 80048; 80053; 81001; 82803; 82947; 83605; 83735; 83880; 84100; 84443; 84484; 85007; 85014; 85018; 85025; 85027; 85379; 85610; 86850; 86900; 86901; 86920; 86923; 87040; 87077; 87147; 87186; 87205; 87633; 87640; 87641; 93005; 93306; 94002; 94003; 94660; 94799; 97110; 97163; 97167; 97530; 97535; 99285; C1751; C1758; C1769; C1887; C1889; C1894; J0330; J0360; J0613; J0878; J1170; J1630; J1650; J1940; J2020; J2250; J2251; J2543; J2704; J2720; J2919; J3010; J3370; J3480; P9016; P9047; P9073; Q9957

== ENCOUNTER → 2024-02-04 09:32 | Outpatient (BNV) | payer MEDICARE, SELFPAY | PROVIDERS: Admitting Provider Internal Medicine Critical Care Medicine; Emergency Provider Emergency Medicine; PCP Physician Assistant Medical; Visit Provider Radiology Diagnostic Radiology | DX: K92.2 Gastrointestinal hemorrhage, unspecified (principal) | CPT/HCPCS: 37244; 71045; 76937; 99152 ==

== ENCOUNTER 2024-02-04 10:37 | Outpatient (BNV) | payer MEDICARE, SELFPAY | END 2024-02-05 17:00 | PROVIDERS: Admitting Provider Internal Medicine Critical Care Medicine; Emergency Provider Emergency Medicine; PCP Physician Assistant Medical; Visit Provider Student in an Organized Health Care Education/Training Program | DX: K92.2 Gastrointestinal hemorrhage, unspecified (principal) | CPT/HCPCS: 37244; 99152 ==

== ENCOUNTER 2024-02-04 10:37 | Outpatient (BNV) | payer MEDICARE, SELFPAY | END 2024-02-10 07:00 | PROVIDERS: Admitting Provider Internal Medicine Critical Care Medicine; Emergency Provider Emergency Medicine; PCP Physician Assistant Medical; Visit Provider Internal Medicine | DX: I35.1 Nonrheumatic aortic (valve) insufficiency (principal); I42.2 Other hypertrophic cardiomyopathy | CPT/HCPCS: 93306 ==

== ENCOUNTER → 2024-02-04 10:37 | Outpatient (BNV) | payer MEDICARE, SELFPAY | PROVIDERS: Admitting Provider Internal Medicine Critical Care Medicine; Emergency Provider Emergency Medicine; PCP Physician Assistant Medical; Visit Provider Internal Medicine | DX: I48.91 Unspecified atrial fibrillation (principal); I47.29 Other ventricular tachycardia; U07.1 COVID-19; D62 Acute posthemorrhagic anemia; K92.2 Gastrointestinal hemorrhage, unspecified; Z99.81 Dependence on supplemental oxygen; J84.10 Pulmonary fibrosis, unspecified | CPT/HCPCS: 99223; 99233 ==

== ENCOUNTER → 2024-02-04 10:37 | Outpatient (BNV) | payer MEDICARE, SELFPAY | PROVIDERS: Admitting Provider Internal Medicine Critical Care Medicine; Emergency Provider Emergency Medicine; PCP Physician Assistant Medical; Visit Provider Internal Medicine Gastroenterology | DX: K92.2 Gastrointestinal hemorrhage, unspecified (principal) | CPT/HCPCS: 99223; 99232 ==

== ENCOUNTER → 2024-02-04 10:37 | Outpatient (BNV) | payer MEDICARE, SELFPAY | PROVIDERS: Admitting Provider Internal Medicine Critical Care Medicine; Emergency Provider Emergency Medicine; PCP Physician Assistant Medical; Visit Provider Internal Medicine Critical Care Medicine | DX: J84.10 Pulmonary fibrosis, unspecified (principal); J96.90 Respiratory failure, unspecified, unspecified whether with hypoxia or hypercapnia; D62 Acute posthemorrhagic anemia; K92.2 Gastrointestinal hemorrhage, unspecified | CPT/HCPCS: 99291 ==

== ENCOUNTER → 2024-02-04 10:37 | Outpatient (BNV) | payer MEDICARE, SELFPAY | PROVIDERS: Admitting Provider Internal Medicine Critical Care Medicine; Emergency Provider Emergency Medicine; PCP Physician Assistant Medical; Visit Provider Physician Assistant Medical | DX: I47.29 Other ventricular tachycardia (principal); I48.91 Unspecified atrial fibrillation | CPT/HCPCS: 99232; 99239; 99499 ==

== ENCOUNTER → 2024-02-04 10:37 | Outpatient (BNV) | payer MEDICARE, SELFPAY | PROVIDERS: Admitting Provider Internal Medicine Critical Care Medicine; Emergency Provider Emergency Medicine; PCP Physician Assistant Medical; Visit Provider Internal Medicine | DX: U07.1 COVID-19 (principal); R78.81 Bacteremia; K92.2 Gastrointestinal hemorrhage, unspecified; J96.90 Respiratory failure, unspecified, unspecified whether with hypoxia or hypercapnia; J84.10 Pulmonary fibrosis, unspecified | CPT/HCPCS: 99222 ==